=== PATIENT | male | born 1950 | race African-American/Black ===

== ENCOUNTER 2017-10-24 18:51 | Inpatient (IN) | payer OTHER ==
[2017-10-24] MEDS ORDERED: SODIUM CHLORIDE 1,000 ML IV STA (19:10)
--- NOTE | 2017-10-24 19:10 | PDOC ---
History of Present Illness - General History Source: Patient Exam Limitations: No Limitations - History of Present Illness Initial Comments: 10/24/17 19:30 Patient is a 66 yo M with PMH of ESRD on HD MWF, endocarditis, and anemia (7- 11.5) who presents to the ED with low hemoglobin sent from [facility]. Patient states that he is feeling tired and weak. He denies any vomiting or nausea. Patient is a poor historian. Recent admission for 2 week stay for gram positive bacteremia. Recently had a graft change since there was a concern that was the source of thrombosis. <Shabana Morrison - Last Filed: 10/24/17 21:59> <Rose Resendiz - Last Filed: 10/25/17 00:08> - General Chief Complaint: Revisit, Lab Variance Stated Complaint: LOW HEMOGLOBIN LEVELS Time Seen by Provider: 10/24/17 19:08 Past History <Shabana Morrison - Last Filed: 10/24/17 21:59> - Past Medical History Anemia: No Asthma: Yes ( A CHILD) Cancer: No Cardiac Disorders: No CVA: No COPD: No CHF: No DVT: No Dementia: No Diabetes: No Dialysis: Yes (m-w-f, lt arm graft) GI Disorders: No Disorders: Yes (enlarged prostate) HTN: Yes Hypercholesterolemia: No Liver Disease: No Psychiatric Problems: Yes (restlessness and agitation,schizophernia) Seizures: No Thyroid Disease: No - Surgical History Abdominal Surgery: No Appendectomy: No Cardiac Surgery: No Cholecystectomy: No Lung Surgery: No Neurologic Surgery: No Orthopedic Surgery: No - Immunization History Immunization Up to Date: No - Suicide/Smoking/Psychosocial Hx Smoking Status: No Smoking History: Never smoked Have you smoked in the past 12 months: Yes Number of Cigarettes Smoked Daily: 20 If you are a former smoker, when did you quit?: 1991 Information on smoking cessation initiated: No 'Breaking Loose' booklet given: 03/13/15 Hx Alcohol Use: No Drug/Substance Use Hx: No Substance Use Type: None Hx Substance Use Treatment: No <Rose Resendiz - Last Filed: 10/25/17 00:08> - Past Medical History Allergies/Adverse Reactions: Allergies Allergy/AdvReac Type Severity Reaction Status Date / Time No Known Drug Allergies Allergy Verified 10/24/17 18:54 Home Medications: Ambulatory Orders Cinacalcet HCl [Sensipar] 90 mg PO DAILY 03/11/15 Folic Acid/Vit Bcomp,C [Danya-Anamaria Tablet] 0.8 mg PO DAILY 03/12/15 Aspirin [Ecotrin] 81 mg PO DAILY #90 tablet. 03/25/15 Acetaminophen Suppository [Tylenol .Suppository -] 650 mg [place] Q6H PRN #0 supp.rect 09/09/17 Acetaminophen [Tylenol .Regular Strength -] 650 mg PO Q6H PRN #0 tablet Atorvastatin Ca [Lipitor] 20 mg PO HS tablet 09/09/17 Heparin - 5,000 unit SQ TID vial 09/09/17 Cefazolin (Pre-Docked) [Ancef 1Gm Ivpb (Pre-Docked)] 1 grams IVPB DAILY Haloperidol [Haldol -] 5 mg PO DAILY 10/24/17 Rifampin 300 mg PO DAILY 10/24/17 Sevelamer Carbonate 800 mg PO TID 10/24/17 Review of Systems - Review of Systems Able to Perform ROS?: Yes Comments:: 10/24/17 19:31 CONSTITUTIONAL: Present: generalized weakness Absent: fever, chills, diaphoresis, malaise, loss of appetite HEENT: Absent: rhinorrhea, nasal congestion, throat pain, throat swelling, difficulty swallowing, mouth swelling, ear pain, eye pain, visual Changes CARDIOVASCULAR: Absent: chest pain, syncope, palpitations, irregular heart rate, lightheadedness , peripheral edema RESPIRATORY: Absent: cough, shortness of breath, dyspnea with exertion, orthopnea, wheezing, stridor, hemoptysis GASTROINTESTINAL: Absent: abdominal pain, abdominal distension, nausea, vomiting, diarrhea, constipation, melena, hematochezia GENITOURINARY: Absent: dysuria, frequency, urgency, hesitancy, hematuria, flank pain, genital pain MUSCULOSKELETAL: Absent: myalgia, arthralgia, joint swelling SKIN: Absent: rash, itching, pallor HEMATOLOGIC/IMMUNOLOGIC: Absent: easy bleeding, easy bruising, lymphadenopathy, frequent infections ENDOCRINE: Absent: unexplained weight gain, unexplained weight loss, heat intolerance, cold intolerance NEUROLOGIC: Absent: headache, focal weakness or paresthesias, dizziness, unsteady gait, seizure, mental status changes, bladder or bowel incontinence PSYCHIATRIC: Absent: anxiety, depression, suicidal or homicidal ideation, hallucinations. <Shabana Morrison - Last Filed: 10/24/17 21:59> *Physical Exam - Vital Signs Last Vital Signs Temp Pulse Resp BP Pulse Ox 98.0 F 82 18 83/67 100 10/24/17 18:54 10/24/17 18:54 10/24/17 18:54 10/24/17 18:54 10/24/17 18:54 - Physical Exam Comments: 10/24/17 19:32 GENERAL: +Cachectic, 66 year old male looking much old. Awake and alert. HEENT: +Poor dentition multiple missing teeth. Normocephalic, atraumatic. PERRLA, EOMI. No conjunctival pallor. Sclera are non-icteric. Moist mucous membranes. Oropharynx is clear. NECK: Supple. Full ROM. No JVD. Carotid pulses 2+ and symmetric, without bruits. No thyromegaly. No lymphadenopathy. CARDIOVASCULAR: Regular rate and rhythm. No murmurs, rubs, or gallops. Distal pulses are 2+ and symmetric. PULMONARY: No evidence of respiratory distress. Lungs clear to auscultation bilaterally. No wheezing, rales or rhonchi. ABDOMINAL: Soft. Non-tender. Non-distended. No rebound or guarding. No organomegaly. Normoactive bowel sounds. MUSCULOSKELETAL Normal range of motion at all joints. No bony deformities or tenderness. No CVA tenderness. EXTREMITIES: No cyanosis. No clubbing. No edema. No calf tenderness. SKIN: Warm and dry. Normal capillary refill. No rashes. No jaundice. NEUROLOGICAL: Alert, awake. Cranial nerves 2-12 intact. No deficits to light touch and temperature in face, upper extremities and lower extremities. No motor deficits in the in face, upper extremities and lower extremities. Normoreflexic in the upper and lower extremities. Normal speech. PSYCHIATRIC: Cooperative. Good eye contact. Appropriate mood and affect. <Shabana Morrison - Last Filed: 10/24/17 21:59> - Vital Signs Last Vital Signs Temp Pulse Resp BP Pulse Ox 98.0 F 82 18 83/67 100 10/24/17 18:54 10/24/17 18:54 10/24/17 18:54 10/24/17 18:54 10/24/17 18:54 <Rose Resendiz - Last Filed: 10/25/17 00:08> ED Treatment Course - LABORATORY CBC & Chemistry Diagram: 10/24/17 19:55 10/24/17 19:55 <Shabana Morrison - Last Filed: 10/24/17 21:59> - LABORATORY CBC & Chemistry Diagram: 10/24/17 19:55 10/24/17 19:55 <Rose Resendiz - Last Filed: 10/25/17 00:08> Medical Decision Making - Medical Decision Making 10/24/17 21:59 A call was placed to Dr. Marie. Awaiting a call back from Dr. Malorie Wells. <Shabana Morrison - Last Filed: 10/24/17 21:59> *DC/Admit/Observation/Transfer - Attestations Scribe Attestion: 10/24/17 19:33 Documentation prepared by SAIRA Mack, acting as medical auditor for Rose Resendiz MD/DO. <Shabana Morrison - Last Filed: 10/24/17 21:59> - Discharge Dispostion Admit: Yes <Rose Resendiz - Last Filed: 10/25/17 00:08> Diagnosis at time of Disposition: ESRD (end stage renal disease) on dialysis, Symptomatic anemia
[2017-10-24 20:30] LABS: INR 1.27 (0.82-1.09); PROTHROMBIN TIME (PATIENT) 14.3 SEC (9.98-11.88)
[2017-10-24 20:36] LABS: BASO % 1.7 % (0-2.0); EOS % 10.8 % (0-4.5); MCH 28.8 pg (25.7-33.7); MCHC 32.8 g/dl (32.0-35.9); MEAN CELL VOLUME 87.6 fl (80-96); MEAN PLT VOLUME 7.1 fl (7.5-11.1); NEUT % 63.5 % (42.8-82.8); PLATELET COUNT 243 K/MM3 (134-434); RBC 2.19 M/mm3 (4.00-5.60); RDW 15.6 % (11.9-15.9); RETICULOCYTES 2.08 % (0.5-1.5)
[2017-10-24 21:05] LABS: ALBUMIN 1.5 g/dl (3.4-5.0); ALK PHOS 116 U/L (45-117); ANION GAP 6 (8-16); BILIRUBIN,TOTAL 0.5 mg/dL (0.2-1.0); BLOOD UREA NITROGEN 12 mg/dL (7-18); CALCIUM 8.6 mg/dL (8.5-10.1); CHLORIDE 99 mmol/L (98-107); CO2 32 mmol/L (21-32); CREATININE 3.7 mg/dL (0.7-1.3); GLUCOSE,RANDOM 93 mg/dL (74-106); POTASSIUM 3.5 mmol/L (3.5-5.1); SGOT/AST 15 U/L (15-37); SGPT/ALT < 6 U/L (12-78); SODIUM 137 mmol/L (136-145); TOT PROT 6.8 g/dl (6.4-8.2)
[2017-10-24 21:11] LABS: HEMATOCRIT 19.2 % (35.4-49); HEMOGLOBIN 6.3 GM/dL (11.7-16.9)
--- NOTE | 2017-10-25 00:06 | HP ---
CHIEF COMPLAINT: anemia PCP: [facility] HISTORY OF PRESENT ILLNESS: This is a 66 year old male with a past medical history of HTN, ESRD MWF, asthma , BPH who presented to the ED with low H/H as per fdc. Pt reports that he has been feeling weak ever since he was admitted to the [facility] and that they don't give her proper food, only puree baby food. He was recently admitted here 09/07-09/09 for MSSA bacterial endocarditis and transferred to tertiary care center for further treatment. ER course was notable for: (1) Hgb 6.3 Recent Travel: pt denies PAST MEDICAL HISTORY: ESRD MWF HTN asthma BPH schizophrenia PAST SURGICAL HISTORY: TURP Social History: Smoking: quit age 21 Alcohol: occ Drugs: marij-none since admission to [facility] on 10/06 Family History: pt does not know Allergies No Known Drug Allergies Allergy (Verified 10/24/17 18:54) HOME MEDICATIONS: 3 Medication Instructions Recorded Folic Acid 1 mg PO DAILY 10/24/17 Aspirin [Ecotrin] 81 mg PO DAILY #90 tablet. 03/25/15 Acetaminophen [Tylenol .Regular 650 mg PO Q6H PRN #0 tablet 09/09/17 Strength -] Cefazolin (Pre-Docked) [Ancef 1Gm 3g on tuesday with dialysis 10/24/17 Ivpb (Pre-Docked)] 2g on with dialysis Haloperidol [Haldol -] 5 mg PO DAILY 10/24/17 Rifampin 300 mg PO DAILY 10/24/17 Sevelamer Carbonate 800 mg PO TID 10/24/17 REVIEW OF SYSTEMS CONSTITUTIONAL: Present: generalized weakness, malaise Absent: fever, chills, diaphoresis, loss of appetite, weight change HEENT: Absent: rhinorrhea, nasal congestion, throat pain, throat swelling, difficulty swallowing, mouth swelling, ear pain, eye pain, visual changes CARDIOVASCULAR: Absent: chest pain, syncope, palpitations, irregular heart rate, lightheadedness , peripheral edema RESPIRATORY: Absent: cough, shortness of breath, dyspnea with exertion, orthopnea, wheezing, stridor, hemoptysis GASTROINTESTINAL: Absent: abdominal pain, abdominal distension, nausea, vomiting, diarrhea, constipation, melena, hematochezia GENITOURINARY: Absent: dysuria, frequency, urgency, hesitancy, hematuria, flank pain, genital pain MUSCULOSKELETAL: Absent: myalgia, arthralgia, joint swelling, back pain, neck pain SKIN: Absent: rash, itching, pallor HEMATOLOGIC/IMMUNOLOGIC: Absent: easy bleeding, easy bruising, lymphadenopathy, frequent infections ENDOCRINE: Absent: unexplained weight gain, unexplained weight loss, heat intolerance, cold intolerance NEUROLOGIC: Absent: headache, focal weakness or paresthesias, dizziness, unsteady gait, seizure, mental status changes, bladder or bowel incontinence PSYCHIATRIC: Absent: anxiety, depression, suicidal or homicidal ideation, hallucinations. PHYSICAL EXAMINATION Vital Signs - 24 hr 3 10/24/17 10/24/17 18:54 22:03 Temperature 98.0 F Pulse Rate 82 Respiratory 18 18 Rate Blood Pressure 83/67 O2 Sat by Pulse 100 100 Oximetry (%) GENERAL: Awake, alert, and fully oriented, in no acute distress. HEAD: Normal with no signs of trauma. EYES: Pupils equal, round and reactive to light, extraocular movements intact, sclera anicteric, conjunctiva clear. No lid lag. EARS, NOSE, THROAT: Ears normal, nares patent, oropharynx clear without exudates. Moist mucous membranes. NECK: Normal range of motion, supple without lymphadenopathy, JVD, or masses. LUNGS: Breath sounds equal, clear to auscultation bilaterally. No wheezes, and no crackles. No accessory muscle use. HEART: Regular rate and rhythm, normal S1 and S2 without murmur, rub or gallop. ABDOMEN: Soft, nontender, not distended, normoactive bowel sounds, no guarding, no rebound, no masses. No hepatomegaly or splenomegaly. MUSCULOSKELETAL: Normal range of motion at all joints. No bony deformities or tenderness. No CVA tenderness. UPPER EXTREMITIES: 2+ pulses, warm, well-perfused. No cyanosis. No clubbing. No peripheral edema. left upper arm AVG with bruit and thrill LOWER EXTREMITIES: 2+ pulses, warm, well-perfused. No calf tenderness. No peripheral edema. NEUROLOGICAL: Cranial nerves II-XII intact. Normal speech. Normal gait. PSYCHIATRIC: Cooperative. Good eye contact. Appropriate mood and affect. SKIN: Warm, dry, normal turgor, no rashes or lesions noted, normal capillary refill. Laboratory Results - last 24 hr 3 10/24/17 10/24/17 10/24/17 19:55 19:55 19:55 21:50 WBC 6.0 D RBC 2.19 L D Hgb 6.3 L* D Hct 19.2 L D MCV 87.6 D MCH 28.8 MCHC 32.8 RDW 15.6 Plt Count 243 D MPV 7.1 L D Neutrophils % 63.5 D Lymphocytes % 18.0 D Monocytes % 6.0 Eosinophils % 10.8 H D Basophils % 1.7 Retic Count 2.08 H PT with INR 14.30 H INR 1.27 H Sodium 137 Potassium 3.5 Chloride 99 Carbon Dioxide 32 Anion Gap 6 L BUN 12 D Creatinine 3.7 H D Creat Clearance w eGFR 16.52 Random Glucose 93 Calcium 8.6 Total Bilirubin 0.5 D AST 15 D ALT < 6 L D Alkaline Phosphatase 116 Creatine Kinase 49 Troponin I < 0.02 D Total Protein 6.8 Albumin 1.5 L D Stool Occult Blood Negative Blood Type O POSITIVE Antibody Screen Negative Crossmatch See Detail ECG Accelerated junctional rhythm vent rate 87 QTC 515 inverted t waves aVL, v2-v6 ASSESSMENT/PLAN: 66yM with PMH HTN, ESRD, asthma, BPH, schizophrenia, bacterial endocarditis presented to the ED from [place] with anemia. Anemia likely secondary to ESRD - ED dw Dr. Lisa, renal who recommended 2u over 8 hours - will repeat CBC in am after blood - f/u with dialysis - renal consult appreciated ECG changes - new inverted t waves and accelerated junctional rhythm - trend troponin in am, repeat ECG, if changes persist after blood, get cardio consult HTN - on no home medications, monitor BP schizophrenia - Noted with QTC prolongation on ECG but haldol necessary to maintain psychiatric well being - avoid any other QTC prolonging drugs. DVT PPX - avoid heparin due to anemia FEN - renal diet Dispo: Pt currently requires inpatient monitoring for management of his emergent condition but likely will go home in next 24 hours so will admit to observation status. Visit type - Emergency Visit Emergency Visit: Yes ED Registration Date: 10/24/17 Care time: The patient presented to the Emergency Department on the above date and was hospitalized for further evaluation of their emergent condition. - New Patient This patient is new to me today: Yes Date on this admission: 10/24/17 - Critical Care Critical Care patient: No
[2017-10-25 06:50] LABS: EOS % 10.6 % (0-4.5); HEMATOCRIT 25.6 % (35.4-49); HEMOGLOBIN 8.6 GM/dL (11.7-16.9); LYMPH % 16.1 % (8-40); MCH 29.3 pg (25.7-33.7); MCHC 33.6 g/dl (32.0-35.9); MEAN CELL VOLUME 87.2 fl (80-96); MEAN PLT VOLUME 6.8 fl (7.5-11.1); MONO % 7.3 % (3.8-10.2); PLATELET COUNT 233 K/MM3 (134-434); RBC 2.94 M/mm3 (4.00-5.60); RDW 14.8 % (11.9-15.9); WHITE BLOOD COUNT 6.9 K/mm3 (4.0-10.0)
[2017-10-25 07:11] LABS: ANION GAP 8 (8-16); BLOOD UREA NITROGEN 18 mg/dL (7-18); CALCIUM 8.5 mg/dL (8.5-10.1); CHLORIDE 102 mmol/L (98-107); CO2 28 mmol/L (21-32); CREATININE 4.4 mg/dL (0.7-1.3); GLUCOSE,RANDOM 72 mg/dL (74-106); MAGNESIUM 2.4 mg/dL (1.8-2.4); PHOSPHOROUS 4.3 mg/dL (2.5-4.9); POTASSIUM 4.1 mmol/L (3.5-5.1); SODIUM 138 mmol/L (136-145)
--- NOTE | 2017-10-25 08:36 | PN ---
Progress Note (short form) - Note Progress Note: Pt seen/ examined. chart reviewed got 2 units feels well no complains Vital Signs Temp 98.1 F 10/25/17 06:35 Pulse 79 10/25/17 06:35 Resp 19 10/25/17 06:35 BP 133/97 10/25/17 06:35 Pulse Ox 99 10/25/17 06:35 Intake & Output 10/24/17 10/24/17 10/25/17 11:59 23:59 11:59 Weight 170 lb Other: Height 5 ft 11 in Body Mass Index (BMI) 23.7 Weight Measurement Method Est/Stated by Patient CBC, BMP 10/25/17 06:25 10/25/17 06:25 Physical exam alert/awake lungs- clear cvs- s1, s2 rrr abd - soft ext- no edema neuro- aox 3 a/p anemia- likely of chronic disease transfuse stool for occult blood-ve gi work up as outpt dialysis per renal. abx - last dose Cefazolin tomorrow ekg - junctional rhythm. will get cardiology consult. will follow. Problem List - Problems (1) Abnormal ECG Code(s): R94.31 - ABNORMAL ELECTROCARDIOGRAM [ECG] [EKG] (2) ESRD (end stage renal disease) on dialysis Code(s): N18.6 - END STAGE RENAL DISEASE; Z99.2 - DEPENDENCE ON RENAL DIALYSIS (3) Symptomatic anemia Code(s): D64.9 - ANEMIA, UNSPECIFIED
--- NOTE | 2017-10-25 09:41 | CON.NEP ---
Consult Consult Specialty:: Nephrology Referred by:: Dr. Pearce Reason for Consultation:: ESRD on HD, Anemia - History of Present Illness Chief Complaint: Low Hgb levels at dialysis History of Present Illness: This is a 66 year old gentleman with PMhx of ESRD on HD (MWF at [facility]), Hypertension, Recent MSSA Bacteremia with suspected endocarditis who was sent into the ED from dialysis for low Hgb. Hgb has been in the 7's since hospital discharge but now it fell to 6.8 and pt was mildly hypotensive on dialysis. Pt s /p admission at [facility] for suspected endocarditis. Pt has persisetnly positive blood cultures but BALTA showed no Veg on heart valves and Doppler of Hero Graft shoed no collections. Pt is currently on Cefazolin IV with HD until 10/26. Pt without any acute complaints. No fevers, chills. Hero Graft being used for dialysis. Denies any dark stools. 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 Cardio/Vascular: Yes: HTN Renal/: Yes: Renal Failure, BPH, Hemodialysis Endocrine: Yes: Hyperparathyroidism - Past Surgical History Past Surgical History: Yes: AV Fistula/Graft, TURP - Alcohol/Substance Use Hx Alcohol Use: No History of Substance Use: reports: Marijuana - Smoking History Smoking history: Never smoked Have you smoked in the past 12 months: Yes Aproximately how many cigarettes per day: 20 If you are a former smoker, when did you quit?: 1991 - Social History History of Recent Travel: No Home Medications - Allergies Allergies/Adverse Reactions: Allergies Allergy/AdvReac Type Severity Reaction Status Date / Time No Known Drug Allergies Allergy Verified 10/24/17 18:54 - Home Medications Home Medications: Ambulatory Orders Cinacalcet HCl [Sensipar] 90 mg PO DAILY 03/11/15 Folic Acid/Vit Bcomp,C [Danya-Anamaria Tablet] 0.8 mg PO DAILY 03/12/15 Aspirin [Ecotrin] 81 mg PO DAILY #90 tablet. 03/25/15 Acetaminophen Suppository [Tylenol .Suppository -] 650 mg [place] Q6H PRN #0 supp.rect 09/09/17 Acetaminophen [Tylenol .Regular Strength -] 650 mg PO Q6H PRN #0 tablet Atorvastatin Ca [Lipitor] 20 mg PO HS tablet 09/09/17 Heparin - 5,000 unit SQ TID vial 09/09/17 Cefazolin (Pre-Docked) [Ancef 1Gm Ivpb (Pre-Docked)] 1 grams IVPB DAILY Haloperidol [Haldol -] 5 mg PO DAILY 10/24/17 Rifampin 300 mg PO DAILY 10/24/17 Sevelamer Carbonate 800 mg PO TID 10/24/17 Family Disease History - Family Disease History Family History: Unremarkable Review of Systems - Review of Systems Constitutional: reports: No Symptoms Eyes: reports: No Symptoms HENT: reports: No Symptoms Neck: reports: No Symptoms Cardiovascular: reports: No Symptoms Respiratory: reports: No Symptoms Gastrointestinal: reports: No Symptoms Musculoskeletal: reports: No Symptoms Nephrology Consult - Height Height: 5 ft 11 in - Weight Weight: 77.111 kg - BMI Body Mass Index (BMI): 23.7 - Lab Results CBC,BMP: CBC, BMP 10/25/17 06:25 10/25/17 06:25 Anion Gap: Anion Gap Anion Gap 8 (8-16) 10/25/17 06:25 - Imaging Chest X-ray: Report Reviewed - Physical Examination Vital Signs: Vital Signs Temperature 98.1 F 10/25/17 06:35 Pulse Rate 79 10/25/17 06:35 Respiratory Rate 19 10/25/17 06:35 Blood Pressure 133/97 10/25/17 06:35 O2 Sat by Pulse Oximetry (%) 99 10/25/17 06:35 Constitutional: Yes: No Distress Eyes: Yes: Conjunctiva Clear HENT: Yes: Atraumatic Neck: Yes: Supple Cardiovascular: Yes: Regular Rate and Rhythm Respiratory: Yes: Regular, Diminished. No: Rales, Rhonchi Gastrointestinal: Yes: Soft. No: Tenderness Access for Hemodialysis: AV Graft Extremities: No: Cold, Cool, Cyanosis Edema: No Neurological: Yes: Alert, Oriented Assessment/Plan 66 year old gentleman with PMhx of ESRD on HD (MWF at [facility]), Hypertension , Recent MSSA Bacteremia with suspected endocarditis who was sent into the ED from dialysis for low Hgb. Hgb has been in the 7's since hospital discharge but now it fell to 6.8 and pt was mildly hypotensive on dialysis. 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 need for repeat blood cultures Pt states that he does not want to go back to [place] and would want to go home will need PT eval Thank you Will follow Aquiles Marie
--- NOTE | 2017-10-25 09:53 | CON.CARD ---
Consult Consult Specialty:: Cardiology Referred by:: Dr. Pearce Reason for Consultation:: Abnl ECG - History of Present Illness Chief Complaint: Diarrhea History of Present Illness: This is a 66 year old gentleman with PMhx of ESRD on HD (MWF at [facility]), Hypertension, Recent MSSA Bacteremia with suspected endocarditis who was sent into the ED from dialysis for low Hgb. Hgb has been in the 7's since hospital discharge but now it fell to 6.8 and pt was mildly hypotensive on dialysis. Pt s /p admission at [facility] for suspected endocarditis. Pt has persisetnly positive blood cultures but BALTA showed no Veg on heart valves and Doppler of Hero Graft shoed no collections. Pt is currently on Cefazolin IV with HD until 10/26. Pt without any acute complaints. No fevers, chills. Hero Graft being used for dialysis. Denies any dark stools. He denies chest pain, SOB, palps. Denies prior Cardiac history, but does state he used to take Coumadin; doesn't know why. Having significant diarrhea, " all day long" - History Source History Provided By: Patient, Medical Record - Past Medical History RN ORTHOPAEDIC: Yes: Seizure Cardio/Vascular: Yes: HTN Renal/: Yes: Renal Failure, BPH, Hemodialysis Infectious Disease: Yes: Other (recent bacteremia) Endocrine: Yes: Hyperparathyroidism - Past Surgical History Past Surgical History: Yes: AV Fistula/Graft, TURP - Alcohol/Substance Use Hx Alcohol Use: No History of Substance Use: reports: Marijuana - Smoking History Smoking history: Never smoked Have you smoked in the past 12 months: Yes Aproximately how many cigarettes per day: 20 If you are a former smoker, when did you quit?: 1991 - Social History History of Recent Travel: No Home Medications - Allergies Allergies/Adverse Reactions: Allergies Allergy/AdvReac Type Severity Reaction Status Date / Time No Known Drug Allergies Allergy Verified 10/24/17 18:54 - Home Medications Home Medications: Ambulatory Orders Cinacalcet HCl [Sensipar] 90 mg PO DAILY 03/11/15 Folic Acid/Vit Bcomp,C [Danya-Anamaria Tablet] 0.8 mg PO DAILY 03/12/15 Aspirin [Ecotrin] 81 mg PO DAILY #90 tablet. 03/25/15 Acetaminophen Suppository [Tylenol .Suppository -] 650 mg ND Q6H PRN #0 supp.rect 09/09/17 Acetaminophen [Tylenol .Regular Strength -] 650 mg PO Q6H PRN #0 tablet Atorvastatin Ca [Lipitor] 20 mg PO HS tablet 09/09/17 Heparin - 5,000 unit SQ TID vial 09/09/17 Cefazolin (Pre-Docked) [Ancef 1Gm Ivpb (Pre-Docked)] 1 grams IVPB DAILY Haloperidol [Haldol -] 5 mg PO DAILY 10/24/17 Rifampin 300 mg PO DAILY 10/24/17 Sevelamer Carbonate 800 mg PO TID 10/24/17 Family Disease History - Family Disease History Family History: Unremarkable (non contributory) Review of Systems Findings/Remarks: See HPI - Review of Systems Constitutional: denies: No Symptoms, Chills, Diaphoresis, Fever, Lethargy, Loss of Appetite, Malaise, Night Sweats, Unintentional Wgt. Loss, Weakness, Other Eyes: denies: No Symptoms, Blind Spots, Blurred Vision, Double Vision, Eye Pain , Floaters, Photophobia, Recent Change in Vision, Other HENT: denies: No Symptoms, Difficult Swallowing, Ear Discharge, Ear Pain, Epistaxis, Gingival Bleeding, Hearing Loss, Mouth Swelling, Nasal Congestion, Ocular Prosthesis, Throat Pain, Toothache, Ringing in Ears, Other Neck: denies: No Symptoms, Decreased ROM, Lumps, Pain on Movement, Stiffness, Swollen Glands, Tenderness, Other Cardiovascular: denies: No Symptoms, Chest Pain, Edema, Palpitations, Shortness of Breath, Other Gastrointestinal: reports: Diarrhea Genitourinary: denies: No Symptoms, Burning, Discharge, Dysuria, Flank Pain, Frequency, Hematuria, Incontinence, Lesions, Menses, Pain, Testicular Mass, Testicular Pain, Testicular Swelling, Urgency, Vaginal Bleeding, Other Breasts: denies: No Symptoms Reported, See HPI, Breast Implants, Discharge from Nipple, Lumps, Pain, Skin Changes, Other Integumentary: denies: No Symptoms, Blister, Bruising, Change in Color, Eczema, Erythema, Incision, Lesions, Lump, Pallor, Pruritis, Rash, Wound, Other Neurological: denies: No Symptoms, Change in LOC, Change in Speech, Confusion, Dizziness, Headache, Incoordination, Numbness, Parasthesia, Pre-Existing Deficit , Seizure, Syncope, Tremors, Unsteady Gait, Weakness, Other Endocrine: denies: No Symptoms, Excessive Sweating, Flushing, Increased Hunger, Increased Thirst, Intolerance to Cold, Intolerance to Heat, Unexplained Weight Gain, Unexplained Weight Loss, Other Psychiatric: denies: No Symptoms, Altered Sleep Pattern, Anxiety, Depression, Hallucinations, Panic, Paranoia, Suicidal, Other - Risk Factors Known Risk Factors: Yes: Hypertension, Other (ESRD) Vital Signs: Vital Signs Temperature 98.1 F 10/25/17 06:35 Pulse Rate 79 10/25/17 06:35 Respiratory Rate 19 10/25/17 06:35 Blood Pressure 133/97 10/25/17 06:35 O2 Sat by Pulse Oximetry (%) 99 10/25/17 06:35 Constitutional: Yes: No Distress, Calm Eyes: Yes: Conjunctiva Clear, EOM Intact Respiratory: Yes: CTA Bilaterally Gastrointestinal: Yes: Soft (no rebound or guarding) Cardiovascular: Yes: Regular Rate and Rhythm JVD: No Carotid Bruit: No PMI: Non-Displaced Heart Sounds: Yes: S1, S2 (RRR, no murmurs) Edema: No Neurological: Yes: Alert, Oriented - Other Data Labs, Other Data: CBC, BMP 10/25/17 06:25 10/25/17 06:25 INR, PTT INR 1.27 (0.82-1.09) H 10/24/17 19:55 Troponin, BNP 10/24/17 10/25/17 10/25/17 19:55 02:30 06:25 Troponin I < 0.02 D < 0.02 < 0.02 Troponin, BNP 10/24/17 10/25/17 10/25/17 19:55 02:30 06:25 Troponin I < 0.02 D < 0.02 < 0.02 Laboratory Tests 10/24/17 10/24/17 10/24/17 19:55 19:55 21:50 WBC 6.0 D Hgb 6.3 L* D Plt Count 243 D Potassium BUN Creatinine Creatine Kinase Troponin I < 0.02 D Stool Occult Blood Negative 10/25/17 10/25/17 10/25/17 02:30 06:25 06:25 WBC 6.9 Hgb 8.6 L D Plt Count 233 Potassium 4.1 BUN 18 D Creatinine 4.4 H Creatine Kinase 53 Troponin I < 0.02 < 0.02 Stool Occult Blood Jxal rhythm with NSST changes Echo: Report Reviewed (Normal LV function. ?Mass RA on TTE 09/2017 Subsequent BALTA done at [facility]) Stress Echo: Report Reviewed Imaging - Results EKG: Image Reviewed Problem List - Problems (1) Abnormal ECG Assessment/Plan: -junctional rhythm -Normal LV function -Check Holter Code(s): R94.31 - ABNORMAL ELECTROCARDIOGRAM [ECG] [EKG] (2) ESRD (end stage renal disease) on dialysis Assessment/Plan: -HD as per renal Code(s): N18.6 - END STAGE RENAL DISEASE; Z99.2 - DEPENDENCE ON RENAL DIALYSIS (3) Symptomatic anemia Assessment/Plan: -guaiac negative -Transfusional support -Work up as per PMD Code(s): D64.9 - ANEMIA, UNSPECIFIED (4) Gram-positive bacteremia Assessment/Plan: -Recent BALTA negative -Surveillance cx and IV abx at HD as per ID Code(s): R78.81 - BACTEREMIA
[2017-10-25 10:55] VITALS: BMI 18.3
--- NOTE | 2017-10-25 21:13 | EKG ---
Test Reason : Blood Pressure : / mmHG Vent. Rate : 077 BPM Atrial Rate : 077 BPM P-R Int : 000 ms QRS Dur : 084 ms QT Int : 402 ms P-R-T Axes : 076 072 265 degrees QTc Int : 454 ms SINUS RHYTHM WITH 1ST DEGREE A-V BLOCK NONSPECIFIC T WAVE ABNORMALITY ABNORMAL ECG WHEN COMPARED WITH ECG OF 24-OCT-2017 19:02, SINUS RHYTHM HAS REPLACED JUNCTIONAL RHYTHM T WAVE INVERSION NO LONGER EVIDENT IN LATERAL LEADS QT HAS SHORTENED Confirmed by MD GEE, MAGDY ([id number]) on 10/25/2017 9:13:22 PM Referred By: Yris HERNANDEZ Confirmed By:MAGDY FLYNN MD
[2017-10-26] MEDS ORDERED: CEFAZOLIN 2 GM in DEXTROSE 5%-WATER - 50 ML IVPB ONE (06:00)
--- NOTE | 2017-10-26 09:10 | PN ---
Progress Note (short form) - Note Progress Note: patient awake/comfortable No complaints offered Denies chest pain or shortness of breath Denies abdominal pain No headache or dizziness Afebrile Vital Signs Temp 98.4 F 10/26/17 06:00 Pulse 80 10/26/17 06:00 Resp 18 10/26/17 06:00 BP 126/66 10/26/17 06:00 Pulse Ox 99 10/25/17 20:00 Intake & Output 10/25/17 10/25/17 10/26/17 11:59 23:59 11:59 Intake Total 820 Output Total 200 Balance 820 -200 Weight 131 lb 1.6 oz Intake: Oral 820 Output: Urine 200 Void 200 Other: Voiding Method Urinal Urinal Bowel Movement Yes: small # Bowel Movements 1 Height 5 ft 11 in Body Mass Index (BMI) 18.3 Weight Measurement Method Stated by Caregiver Active Medications Cefazolin Sodium 2 gm/ (Dextrose) 50 mls @ 100 mls/hr IVPB ONCE ONE Stop: 10/26/17 06:29 CBC, BMP 10/25/17 06:25 10/25/17 06:25 Physical exam alert/awake--comfortable lungs- clear cvs- s1, s2 rrr abd - soft ext- no edema neuro- aox 3 a/p anemia- likely of chronic disease transfuse when necessary--Patient got transfusion yesterday. stool for occult blood-ve gi work up as outpt dialysis per renal.---today abx - last dose Cefazolin tomorrow ekg - junctional rhythm. cardiology consult noted and appreciated Holter in place Monitor Will follow. Problem List - Problems (1) Abnormal ECG Code(s): R94.31 - ABNORMAL ELECTROCARDIOGRAM [ECG] [EKG] (2) ESRD (end stage renal disease) on dialysis Code(s): N18.6 - END STAGE RENAL DISEASE; Z99.2 - DEPENDENCE ON RENAL DIALYSIS (3) Symptomatic anemia Code(s): D64.9 - ANEMIA, UNSPECIFIED
[2017-10-26] MEDS ORDERED: ACETAMINOPHEN 325 MG TABLET (FP) PO PRN (09:15)
--- NOTE | 2017-10-26 09:31 | PN ---
Progress Note, Physician Chief Complaint: holter in progress No CP or SOB - Current Medication List Current Medications: Active Medications Acetaminophen (Tylenol -) 650 mg PO Q6H PRN PRN Reason: FEVER OR PAIN Aspirin (Ecotrin -) 81 mg PO DAILY [facility] Atorvastatin Calcium (Lipitor -) 20 mg PO HS [facility] Bacitracin (Bacitracin -) 1 applic TP BID [facility] Folic Acid (Folic Acid -) 1 mg PO DAILY [facility] Haloperidol (Haldol -) 5 mg PO DAILY [facility] Cefazolin Sodium 2 gm/ (Dextrose) 50 mls @ 100 mls/hr IVPB ONCE ONE Stop: 10/26/17 06:29 Rifampin (Rifadin -) 300 mg PO DAILY [facility] Sevelamer Carbonate (Renvela -) 800 mg PO TID [facility] - Objective Vital Signs: Vital Signs Temperature 98.4 F 10/26/17 06:00 Pulse Rate 80 10/26/17 06:00 Respiratory Rate 18 10/26/17 06:00 Blood Pressure 126/66 10/26/17 06:00 O2 Sat by Pulse Oximetry (%) 99 10/25/17 20:00 Constitutional: Yes: No Distress Cardiovascular: Yes: Regular Rate and Rhythm Respiratory: Yes: CTA Bilaterally Gastrointestinal: Yes: Soft Edema: No Neurological: Yes: Alert, Oriented Labs: CBC, BMP 10/25/17 06:25 10/25/17 06:25 INR, PTT INR 1.27 (0.82-1.09) H 10/24/17 19:55 Microbiology Laboratory Tests 10/24/17 10/25/17 10/25/17 19:55 02:30 06:25 WBC 6.9 Hgb 8.6 L D Plt Count 233 Sodium Potassium Creatinine Troponin I < 0.02 D < 0.02 10/25/17 06:25 WBC Hgb Plt Count Sodium 138 Potassium 4.1 Creatinine 4.4 H Troponin I < 0.02 Problem List - Problems (1) Abnormal ECG Code(s): R94.31 - ABNORMAL ELECTROCARDIOGRAM [ECG] [EKG] (2) ESRD (end stage renal disease) on dialysis Code(s): N18.6 - END STAGE RENAL DISEASE; Z99.2 - DEPENDENCE ON RENAL DIALYSIS (3) Symptomatic anemia Code(s): D64.9 - ANEMIA, UNSPECIFIED (4) Gram-positive bacteremia Code(s): R78.81 - BACTEREMIA Assessment/Plan Problem List - Problems (1) Abnormal ECG Assessment/Plan: -junctional rhythm -Normal LV function -Holter in progress Code(s): R94.31 - ABNORMAL ELECTROCARDIOGRAM [ECG] [EKG] (2) ESRD (end stage renal disease) on dialysis Assessment/Plan: -HD as per renal Code(s): N18.6 - END STAGE RENAL DISEASE; Z99.2 - DEPENDENCE ON RENAL DIALYSIS (3) Symptomatic anemia Assessment/Plan: -guaiac negative -Transfusional support -Work up as per PMD Code(s): D64.9 - ANEMIA, UNSPECIFIED (4) Gram-positive bacteremia Assessment/Plan: -Recent BALTA negative -Surveillance cx and IV abx at HD as per ID Code(s): R78.81 - BACTEREMIA
[2017-10-26] MEDS ORDERED: CEFAZOLIN 2 GM in DEXTROSE 5%-WATER - 100 ML IVPB ONE (11:21)
[2017-10-26] MEDS: BACITRACIN 15 GM TUBE TOPICAL OINTMENT TP SCH ×2 (11:22→21:32)
[2017-10-26] MEDS: RIFAMPIN 300 MG CAPSULE PO SCH (11:22)
[2017-10-26] MEDS: ASPIRIN COATED 81 MG TABLET.EC PO SCH (11:22)
[2017-10-26] MEDS: FOLIC ACID 1 MG TABLET (FP) PO SCH (11:22)
[2017-10-26] MEDS: HALOPERIDOL 5 MG TABLET (FP) PO SCH (11:22)
--- NOTE | 2017-10-26 11:40 | EKG ---
Test Reason : Blood Pressure : / mmHG Vent. Rate : 087 BPM Atrial Rate : 087 BPM P-R Int : 000 ms QRS Dur : 086 ms QT Int : 428 ms P-R-T Axes : 000 080 220 degrees QTc Int : 515 ms sinus rhythm with first degree AVB T WAVE ABNORMALITY, CONSIDER ANTEROLATERAL ISCHEMIA PROLONGED QT ABNORMAL ECG Confirmed by RADHA BROOKE MD ([id number]) on 10/26/2017 11:39:40 AM Referred By: Confirmed By:RADHA BROOKE MD
[2017-10-26 12:05] LABS: HEMATOCRIT 27.8 % (35.4-49); HEMOGLOBIN 9.1 GM/dL (11.7-16.9); MCH 28.8 pg (25.7-33.7); MCHC 32.9 g/dl (32.0-35.9); MEAN CELL VOLUME 87.5 fl (80-96); MEAN PLT VOLUME 6.9 fl (7.5-11.1); PLATELET COUNT 217 K/MM3 (134-434); RBC 3.18 M/mm3 (4.00-5.60); RDW 14.8 % (11.9-15.9); WHITE BLOOD COUNT 8.6 K/mm3 (4.0-10.0)
[2017-10-26 12:46] LABS: ANION GAP 7 (8-16); BLOOD UREA NITROGEN 30 mg/dL (7-18); CALCIUM 8.9 mg/dL (8.5-10.1); CHLORIDE 101 mmol/L (98-107); CO2 29 mmol/L (21-32); GLUCOSE,RANDOM 123 mg/dL (74-106); PHOSPHOROUS 5.2 mg/dL (2.5-4.9); POTASSIUM 3.8 mmol/L (3.5-5.1); SODIUM 137 mmol/L (136-145)
--- NOTE | 2017-10-26 14:47 | PN ---
Progress Note (short form) - Note Progress Note: Renal Follow up for ESRD on HD Pt seen and examined during dialysis awake and alert BP stable UF goal is 2.5L AVG with good flow Vital Signs Temperature 98.1 F 10/26/17 10:00 Pulse Rate 84 10/26/17 10:00 Respiratory Rate 18 10/26/17 10:00 Blood Pressure 129/80 10/26/17 10:00 O2 Sat by Pulse Oximetry (%) 99 10/25/17 20:00 Intake & Output 10/23/17 10/24/17 10/25/17 10/26/17 23:59 23:59 23:59 23:59 Intake Total 820 350 Output Total 200 Balance 820 150 Weight 77.111 kg 59.466 kg NAD awake and alert No LE edema CBC, BMP 10/26/17 11:50 10/26/17 11:50 Current Medications Acetaminophen (Tylenol -) 650 mg PO Q6H PRN PRN Reason: FEVER OR PAIN Aspirin (Ecotrin -) 81 mg PO DAILY [facility] Last Admin: 10/26/17 11:22 Dose: 81 mg Atorvastatin Calcium (Lipitor -) 20 mg PO [facility] Bacitracin (Bacitracin -) 1 applic TP BID [facility] Last Admin: 10/26/17 11:22 Dose: 1 applic Folic Acid (Folic Acid -) 1 mg PO DAILY [facility] Last Admin: 10/26/17 11:22 Dose: 1 mg Haloperidol (Haldol -) 5 mg PO DAILY [facility] Last Admin: 10/26/17 11:22 Dose: 5 mg Rifampin (Rifadin -) 300 mg PO DAILY [facility] Last Admin: 10/26/17 11:22 Dose: 300 mg Sevelamer Carbonate (Renvela -) 800 mg PO TID [facility] 66 year old gentleman with PMhx of ESRD on HD (MWF at [facility]), Hypertension , Recent MSSA Bacteremia with suspected endocarditis who was sent into the ED from dialysis for low Hgb. Hgb has been in the 7's since hospital discharge but now it fell to 6.8 and pt was mildly hypotensive on dialysis. #ESRD on HD tolerating dialysis well today #Acute on Chronic Anemia in setting of CKD/Infection s/p 2 unit prbc transfusion yesterday with good response continue high dose DEMETRIS with HD #Atelectasis/PNA on CXR no leukocytosis, cough, fever, chills to indicate PNA #MSSA Bacteremia getting Cefazolin today with HD will check 1 set of blood cultures Aquiles Marie
[2017-10-26] MEDS ORDERED: PT OWN MED DRAWER 7, Y5N ONE (15:25)
[2017-10-26] MEDS ORDERED: CEFAZOLIN 2 GM/D5W 2 GM/50 ML ML IVPB ONE (15:30)
[2017-10-26] MEDS: SEVELAMER CARBONATE 800 MG TAB (FP) PO SCH ×2 (17:22→21:32)
[2017-10-26 20:10] LABS: CREATININE 2.2 mg/dL (0.7-1.3)
[2017-10-26] MEDS: ATORVASTATIN CA 20 MG TABLET (FP) PO SCH (21:32)
[2017-10-27] MEDS: SEVELAMER CARBONATE 800 MG TAB (FP) PO SCH ×3 (06:31→22:02)
--- NOTE | 2017-10-27 09:03 | PN ---
Progress Note, Physician Chief Complaint: no distress Denies chest pain or SOB History of Present Illness: still having diarrhea - Current Medication List Current Medications: Active Medications Acetaminophen (Tylenol -) 650 mg PO Q6H PRN PRN Reason: FEVER OR PAIN Aspirin (Ecotrin -) 81 mg PO DAILY [facility] Last Admin: 10/26/17 11:22 Dose: 81 mg Atorvastatin Calcium (Lipitor -) 20 mg PO HS [facility] Last Admin: 10/26/17 21:32 Dose: 20 mg Bacitracin (Bacitracin -) 1 applic TP BID [facility] Last Admin: 10/26/17 21:32 Dose: Not Given Folic Acid (Folic Acid -) 1 mg PO DAILY [facility] Last Admin: 10/26/17 11:22 Dose: 1 mg Haloperidol (Haldol -) 5 mg PO DAILY [facility] Last Admin: 10/26/17 11:22 Dose: 5 mg Rifampin (Rifadin -) 300 mg PO DAILY [facility] Last Admin: 10/26/17 11:22 Dose: 300 mg Sevelamer Carbonate (Renvela -) 800 mg PO TID [facility] Last Admin: 10/27/17 06:31 Dose: 800 mg - Objective Vital Signs: Vital Signs Temperature 98.4 F 10/27/17 06:00 Pulse Rate 98 H 10/27/17 06:00 Respiratory Rate 18 10/27/17 06:00 Blood Pressure 134/89 10/27/17 06:00 O2 Sat by Pulse Oximetry (%) 97 10/26/17 21:00 Constitutional: Yes: Calm HENT: Yes: Atraumatic Cardiovascular: Yes: Regular Rate and Rhythm Respiratory: Yes: CTA Bilaterally Gastrointestinal: Yes: Soft Edema: No Labs: CBC, BMP 10/26/17 11:50 10/26/17 17:00 INR, PTT INR 1.27 (0.82-1.09) H 10/24/17 19:55 Laboratory Tests 10/24/17 10/25/17 10/25/17 19:55 02:30 06:25 WBC Hgb Plt Count Sodium Potassium Creatinine Troponin I < 0.02 D < 0.02 < 0.02 10/26/17 10/26/17 11:50 11:50 WBC 8.6 Hgb 9.1 L Plt Count 217 Sodium 137 Potassium 3.8 Creatinine 6.0 H D Troponin I Microbiology 10/25/17 21:00 Blood - Peripheral Venous Blood Culture - Preliminary NO GROWTH OBTAINED AFTER 24 HOURS, INCUBATION TO CONTINUE FOR 4 DAYS. 10/25/17 19:30 Blood - Peripheral Venous Blood Culture - Preliminary NO GROWTH OBTAINED AFTER 24 HOURS, INCUBATION TO CONTINUE FOR 4 DAYS. Problem List - Problems (1) Abnormal ECG Code(s): R94.31 - ABNORMAL ELECTROCARDIOGRAM [ECG] [EKG] (2) ESRD (end stage renal disease) on dialysis Code(s): N18.6 - END STAGE RENAL DISEASE; Z99.2 - DEPENDENCE ON RENAL DIALYSIS (3) Symptomatic anemia Code(s): D64.9 - ANEMIA, UNSPECIFIED (4) Gram-positive bacteremia Code(s): R78.81 - BACTEREMIA Assessment/Plan Problem List - Problems (1) Abnormal ECG Assessment/Plan: -junctional rhythm -Normal LV function -Holter in progress Code(s): R94.31 - ABNORMAL ELECTROCARDIOGRAM [ECG] [EKG] (2) ESRD (end stage renal disease) on dialysis Assessment/Plan: -HD as per renal Code(s): N18.6 - END STAGE RENAL DISEASE; Z99.2 - DEPENDENCE ON RENAL DIALYSIS (3) Symptomatic anemia Assessment/Plan: -guaiac negative -Transfusional support -Work up as per PMD Code(s): D64.9 - ANEMIA, UNSPECIFIED (4) Gram-positive bacteremia, ongoing diarrhea Assessment/Plan: -Recent BALTA negative -Surveillance cx and IV abx at HD as per ID -Check C. Diff Code(s): R78.81 - BACTEREMIA
[2017-10-27] MEDS: FOLIC ACID 1 MG TABLET (FP) PO SCH (10:22)
[2017-10-27] MEDS: ASPIRIN COATED 81 MG TABLET.EC PO SCH (10:22)
[2017-10-27] MEDS: HALOPERIDOL 5 MG TABLET (FP) PO SCH (10:23)
[2017-10-27] MEDS: RIFAMPIN 300 MG CAPSULE PO SCH (10:23)
[2017-10-27] MEDS: BACITRACIN 15 GM TUBE TOPICAL OINTMENT TP SCH (10:23)
--- NOTE | 2017-10-27 12:48 | PN ---
Progress Note (short form) - Note Progress Note: Renal Follow up for ESRD on HD Pt seen and examined at the bedside awake and alert denies any sob, chest pain, abd pain + diarrhea Vital Signs Temperature 98.1 F 10/27/17 10:00 Pulse Rate 90 10/27/17 10:00 Respiratory Rate 20 10/27/17 10:00 Blood Pressure 130/83 10/27/17 10:00 O2 Sat by Pulse Oximetry (%) 97 10/26/17 21:00 Intake & Output 10/24/17 10/25/17 10/26/17 10/27/17 23:59 23:59 23:59 23:59 Intake Total 820 900 380 Output Total 200 200 Balance 820 700 180 Weight 77.111 kg 60.339 kg NAD awake and alert No LE edema CBC, BMP 10/26/17 11:50 10/26/17 17:00 Current Medications Acetaminophen (Tylenol -) 650 mg PO Q6H PRN PRN Reason: FEVER OR PAIN Aspirin (Ecotrin -) 81 mg PO DAILY [facility] Last Admin: 10/27/17 10:22 Dose: 81 mg Atorvastatin Calcium (Lipitor -) 20 mg PO HS [facility] Last Admin: 10/26/17 21:32 Dose: 20 mg Bacitracin (Bacitracin -) 1 applic TP BID [facility] Last Admin: 10/27/17 10:23 Dose: 1 applic Folic Acid (Folic Acid -) 1 mg PO DAILY [facility] Last Admin: 10/27/17 10:22 Dose: 1 mg Haloperidol (Haldol -) 5 mg PO DAILY [facility] Last Admin: 10/27/17 10:23 Dose: 5 mg Rifampin (Rifadin -) 300 mg PO DAILY [facility] Last Admin: 10/27/17 10:23 Dose: 300 mg Sevelamer Carbonate (Renvela -) 800 mg PO TID [facility] Last Admin: 10/27/17 06:31 Dose: 800 mg 66 year old gentleman with PMhx of ESRD on HD (MWF at [facility]), Hypertension , Recent MSSA Bacteremia with suspected endocarditis who was sent into the ED from dialysis for low Hgb. Hgb has been in the 7's since hospital discharge but now it fell to 6.8 and pt was mildly hypotensive on dialysis. #ESRD on HD no acute indication for [employer] today #Acute on Chronic Anemia in setting of CKD/Infection Hgb improved and stable DEMETRIS with HD #Atelectasis/PNA on CXR no leukocytosis, cough, fever, chills to indicate PNA #MSSA Bacteremia blood cultures drawn, no growth so far #Diarrhea check C-diff antigen and toxin, high suspision for C-dif given long course of Abx as outpatient Aquiles Marie
--- NOTE | 2017-10-27 12:50 | HOL ---
Hook-up date: 2017-10-25 13:48:00 Duration: 09:15:00 Test Indications: Medications: 76719 QRS complexes 301 Ventricular ectopics which represent <1 % of total QRS comp. 1 Supraventricular ectopics which represent <1 % of total QRS comp. * Paced QRS complexs which represent % of total QRS comp. * % of Time Classified as Noise VENTRICULAR ECTOPY 285 Isolated 0 Bigeminal Cycles 8 Couplets 0 Runs 0 Beats in Runs * Beats LONGEST at * BPM at :: -- * Beats FASTEST at * BPM at :: -- SUPRAVENTRICULAR ECTOPY 1 Isolated 0 Couplets 0 Runs 0 Beats in Runs * Beats LONGEST at * BPM at :: -- * Beats FASTEST at * BPM at :: -- HEART RATES 80 MIN at 16:53:22 2017-10-25 94 AVG 114 MAX at 21:58:54 2017-10-25 LONGEST RR 1.224 secs at 16:53:18 2017-10-25 SCANNED BY EMI CHENG ON 10/27/17 HOLTER RAN 9:15 HOURS ONLY 1. Baseline sinus rhythm with first degree av block. Avg hr 94, range 80-114. 2. No significant pauses or bradycardia. 3. Rare PVCs and PACs. 4. No vt, vf, afib, aflutter, or svt. 5. No diary submitted. Confirmed by ISAIAH MINOR, EDDIE ([id number]) on 10/27/2017 12:49:59 PM Referred By: SANDRO ROACH DR Overread By: EDDIE COLON MD
--- NOTE | 2017-10-27 17:10 | PN ---
Progress Note (short form) - Note Progress Note: patient seen and examined. Comfortable No complaints Denies diarrhea Discussed with nursing staff--they also reported there is no diarrhea. Vital Signs Temp 98.0 F 10/27/17 14:49 Pulse 100 H 10/27/17 14:49 Resp 18 10/27/17 14:49 BP 120/85 10/27/17 14:49 Pulse Ox 97 10/26/17 21:00 Intake & Output 10/26/17 10/27/17 10/27/17 23:59 11:59 23:59 Intake Total 900 380 420 Output Total 200 200 Balance 900 180 220 Intake: Oral 900 380 420 Output: Urine 200 200 Void 200 200 Other: Voiding Method Urinal Diaper Diaper # Unmeasured Voids Void 0 0 Bowel Movement No Yes No # Bowel Movements 1 Active Medications Acetaminophen (Tylenol -) 650 mg PO Q6H PRN PRN Reason: FEVER OR PAIN Aspirin (Ecotrin -) 81 mg PO DAILY [facility] Last Admin: 10/27/17 10:22 Dose: 81 mg Atorvastatin Calcium (Lipitor -) 20 mg PO HS [facility] Last Admin: 10/26/17 21:32 Dose: 20 mg Bacitracin (Bacitracin -) 1 applic TP BID [facility] Last Admin: 10/27/17 10:23 Dose: 1 applic Folic Acid (Folic Acid -) 1 mg PO DAILY [facility] Last Admin: 10/27/17 10:22 Dose: 1 mg Haloperidol (Haldol -) 5 mg PO DAILY [facility] Last Admin: 10/27/17 10:23 Dose: 5 mg Rifampin (Rifadin -) 300 mg PO DAILY [facility] Last Admin: 10/27/17 10:23 Dose: 300 mg Sevelamer Carbonate (Renvela -) 800 mg PO TID [facility] Last Admin: 10/27/17 13:56 Dose: 800 mg CBC, BMP 10/26/17 11:50 10/26/17 17:00 c diff - pending . Physical exam alert/awake--comfortable lungs- clear cvs- s1, s2 rrr abd - soft/ Non tender ext- no edema neuro- aox 3 a/p anemia- likely of chronic disease transfuse when necessary-- stool for occult blood-ve gi work up as outpt dialysis per renal.---today ekg - junctional rhythm. cardiology consult noted and appreciated Holter ---sinus discharge planning anticipate discharge tomorrow. Will follow. Problem List - Problems (1) Abnormal ECG Code(s): R94.31 - ABNORMAL ELECTROCARDIOGRAM [ECG] [EKG] (2) ESRD (end stage renal disease) on dialysis Code(s): N18.6 - END STAGE RENAL DISEASE; Z99.2 - DEPENDENCE ON RENAL DIALYSIS (3) Symptomatic anemia Code(s): D64.9 - ANEMIA, UNSPECIFIED
[2017-10-27] MEDS: ATORVASTATIN CA 20 MG TABLET (FP) PO SCH (22:02)
[2017-10-28] MEDS: SEVELAMER CARBONATE 800 MG TAB (FP) PO SCH ×3 (05:45→21:26)
[2017-10-28] MEDS: BACITRACIN 15 GM TUBE TOPICAL OINTMENT TP SCH ×2 (05:57→12:00)
[2017-10-28] MEDS ORDERED: EPOETIN ALFA 2,000 UNITS/1 ML VIAL IVPUSH ONE (06:00)
[2017-10-28 06:08] LABS: HBSAG SCREEN Negative (Negative); HEP B CORE AB, TOT Negative (Negative)
[2017-10-28 09:24] LABS: HEMATOCRIT 25.1 % (35.4-49); HEMOGLOBIN 8.2 GM/dL (11.7-16.9); MCH 28.6 pg (25.7-33.7); MCHC 32.7 g/dl (32.0-35.9); MEAN CELL VOLUME 87.6 fl (80-96); MEAN PLT VOLUME 7.4 fl (7.5-11.1); PLATELET COUNT 190 K/MM3 (134-434); RBC 2.86 M/mm3 (4.00-5.60); RDW 15.4 % (11.9-15.9); WHITE BLOOD COUNT 6.6 K/mm3 (4.0-10.0)
[2017-10-28 09:47] LABS: ANION GAP 9 (8-16); BLOOD UREA NITROGEN 44 mg/dL (7-18); CALCIUM 8.9 mg/dL (8.5-10.1); CHLORIDE 99 mmol/L (98-107); CO2 29 mmol/L (21-32); CREATININE 5.8 mg/dL (0.7-1.3); GLUCOSE,RANDOM 117 mg/dL (74-106); PHOSPHOROUS 5.2 mg/dL (2.5-4.9); POTASSIUM 4.2 mmol/L (3.5-5.1); SODIUM 137 mmol/L (136-145)
--- NOTE | 2017-10-28 09:57 | PN ---
Progress Note (short form) - Note Progress Note: patient seen in dialysis today denies chest pain, sob complaints of diarrhea- but staff reports no diarrhea -Cdiff still pending wants to go home Vital Signs Temp 97.7 F 10/28/17 06:00 Pulse 82 10/28/17 09:00 Resp 18 10/28/17 09:00 BP 100/70 10/28/17 09:00 Pulse Ox 97 10/27/17 21:00 Intake & Output 10/27/17 10/27/17 10/28/17 11:59 23:59 11:59 Intake Total 380 970 240 Output Total 200 200 0 Balance 180 770 240 Weight 132 lb 2 oz Intake: Oral 380 970 240 Output: Urine 200 200 0 Void 200 200 0 Other: Voiding Method Diaper Diaper # Unmeasured Voids Void 0 2 Bowel Movement Yes No No Weight Measurement Method Standing Scale Active Medications Acetaminophen (Tylenol -) 650 mg PO Q6H PRN PRN Reason: FEVER OR PAIN Aspirin (Ecotrin -) 81 mg PO DAILY [facility] Last Admin: 10/27/17 10:22 Dose: 81 mg Atorvastatin Calcium (Lipitor -) 20 mg PO HS [facility] Last Admin: 10/27/17 22:02 Dose: 20 mg Bacitracin (Bacitracin -) 1 applic TP BID [facility] Last Admin: 10/28/17 05:57 Dose: Not Given Folic Acid (Folic Acid -) 1 mg PO DAILY [facility] Last Admin: 10/27/17 10:22 Dose: 1 mg Haloperidol (Haldol -) 5 mg PO DAILY [facility] Last Admin: 10/27/17 10:23 Dose: 5 mg Rifampin (Rifadin -) 300 mg PO DAILY [facility] Last Admin: 10/27/17 10:23 Dose: 300 mg Sevelamer Carbonate (Renvela -) 800 mg PO TID [facility] Last Admin: 10/28/17 05:45 Dose: 800 mg Abnormal Lab Results 10/24/17 10/28/17 10/28/17 07:03 07:00 07:00 RBC 2.86 L Hgb 8.2 L Hct 25.1 L MPV 7.4 L BUN 44 H D Creatinine 5.8 H D Random Glucose 117 H Phosphorus 5.2 H Crossmatch See Detail N- alert, oriented cvs-s1s2 lungs-clear abd-soft,nt LE- no edema A/P Symptomatic anemia abnormal EKG- junctional rythmn diarrhea- s/p intermediate cefazolin for MSSA bacteremia ESRD - s/p Transfusion of one unit PRBC Most likely due to Anemia of CKD GI work up as out patient- GUIAC negative holter report pending HD CDIFF PENDING- unable to collect since no diarrhea as per staff recent BALTA negative
--- NOTE | 2017-10-28 10:27 | PN ---
Progress Note, Physician Chief Complaint: Holter: sinus with 1st degree AV block History of Present Illness: no new complaints Seen and examined at HD - Current Medication List Current Medications: Active Medications Acetaminophen (Tylenol -) 650 mg PO Q6H PRN PRN Reason: FEVER OR PAIN Aspirin (Ecotrin -) 81 mg PO DAILY [facility] Last Admin: 10/27/17 10:22 Dose: 81 mg Atorvastatin Calcium (Lipitor -) 20 mg PO HS [facility] Last Admin: 10/27/17 22:02 Dose: 20 mg Bacitracin (Bacitracin -) 1 applic TP BID [facility] Last Admin: 10/28/17 05:57 Dose: Not Given Folic Acid (Folic Acid -) 1 mg PO DAILY [facility] Last Admin: 10/27/17 10:22 Dose: 1 mg Haloperidol (Haldol -) 5 mg PO DAILY [facility] Last Admin: 10/27/17 10:23 Dose: 5 mg Rifampin (Rifadin -) 300 mg PO DAILY [facility] Last Admin: 10/27/17 10:23 Dose: 300 mg Sevelamer Carbonate (Renvela -) 800 mg PO TID [facility] Last Admin: 10/28/17 05:45 Dose: 800 mg - Objective Vital Signs: Vital Signs Temperature 97.7 F 10/28/17 06:00 Pulse Rate 82 10/28/17 09:00 Respiratory Rate 18 10/28/17 09:00 Blood Pressure 100/70 10/28/17 09:00 O2 Sat by Pulse Oximetry (%) 97 10/27/17 21:00 Constitutional: Yes: Calm Cardiovascular: Yes: Regular Rate and Rhythm Respiratory: Yes: CTA Bilaterally Gastrointestinal: Yes: Soft Edema: No Neurological: Yes: Alert Labs: CBC, BMP 10/28/17 07:00 10/28/17 07:00 INR, PTT INR 1.27 (0.82-1.09) H 10/24/17 19:55 Problem List - Problems (1) Abnormal ECG Code(s): R94.31 - ABNORMAL ELECTROCARDIOGRAM [ECG] [EKG] (2) ESRD (end stage renal disease) on dialysis Code(s): N18.6 - END STAGE RENAL DISEASE; Z99.2 - DEPENDENCE ON RENAL DIALYSIS (3) Symptomatic anemia Code(s): D64.9 - ANEMIA, UNSPECIFIED (4) Gram-positive bacteremia Code(s): R78.81 - BACTEREMIA Assessment/Plan Problem List - Problems (1) Abnormal ECG Assessment/Plan: -Holter shows NSR with 1st degree AV block, no junctional rhythm -Normal LV function Code(s): R94.31 - ABNORMAL ELECTROCARDIOGRAM [ECG] [EKG] (2) ESRD (end stage renal disease) on dialysis Assessment/Plan: -HD as per renal Code(s): N18.6 - END STAGE RENAL DISEASE; Z99.2 - DEPENDENCE ON RENAL DIALYSIS (3) Symptomatic anemia Assessment/Plan: -guaiac negative -Transfusional support -Work up as per PMD Code(s): D64.9 - ANEMIA, UNSPECIFIED (4) Gram-positive bacteremia, ongoing diarrhea Assessment/Plan: -Recent BALTA negative -Surveillance cx and IV abx at HD as per ID -Check C. Diff Code(s): R78.81 - BACTEREMIA
[2017-10-28] MEDS ORDERED: EPOETIN ALFA 20,000 UNIT/1 ML VIAL IVPUSH ONE ×2 (11:30)
[2017-10-28] MEDS: ASPIRIN COATED 81 MG TABLET.EC PO SCH (11:59)
[2017-10-28] MEDS: FOLIC ACID 1 MG TABLET (FP) PO SCH (11:59)
[2017-10-28] MEDS: HALOPERIDOL 5 MG TABLET (FP) PO SCH (12:00)
[2017-10-28] MEDS: RIFAMPIN 300 MG CAPSULE PO SCH (12:00)
--- NOTE | 2017-10-28 16:14 | PN ---
Progress Note (short form) - Note Progress Note: Renal Follow up for ESRD on HD Pt seen and examined at the bedside s/p dialysis earlier today with 1L UF no acute complaints diarrhea has improved Vital Signs Temperature 97.9 F 10/28/17 15:33 Pulse Rate 93 H 10/28/17 15:33 Respiratory Rate 18 10/28/17 15:33 Blood Pressure 148/87 10/28/17 15:33 O2 Sat by Pulse Oximetry (%) 97 10/27/17 21:00 Intake & Output 10/25/17 10/26/17 10/27/17 10/28/17 23:59 23:59 23:59 23:59 Intake Total 209 618 8449 1500 Output Total 200 400 120 Balance 820 346 343 1120 Weight 60.339 kg 59.931 kg NAD awake and alert No LE edema CBC, BMP 10/28/17 07:00 10/28/17 07:00 Current Medications Acetaminophen (Tylenol -) 650 mg PO Q6H PRN PRN Reason: FEVER OR PAIN Aspirin (Ecotrin -) 81 mg PO DAILY [facility] Last Admin: 10/28/17 11:59 Dose: 81 mg Atorvastatin Calcium (Lipitor -) 20 mg PO HS [facility] Last Admin: 10/27/17 22:02 Dose: 20 mg Bacitracin (Bacitracin -) 1 applic TP BID [facility] Last Admin: 10/28/17 12:00 Dose: Not Given Folic Acid (Folic Acid -) 1 mg PO DAILY [facility] Last Admin: 10/28/17 11:59 Dose: 1 mg Haloperidol (Haldol -) 5 mg PO DAILY [facility] Last Admin: 10/28/17 12:00 Dose: 5 mg Rifampin (Rifadin -) 300 mg PO DAILY [facility] Last Admin: 10/28/17 12:00 Dose: 300 mg Sevelamer Carbonate (Renvela -) 800 mg PO TID [facility] Last Admin: 10/28/17 13:32 Dose: 800 mg 66 year old gentleman with PMhx of ESRD on HD (MWF at [facility]), Hypertension , Recent MSSA Bacteremia with suspected endocarditis who was sent into the ED from dialysis for low Hgb. Hgb has been in the 7's since hospital discharge but now it fell to 6.8 and pt was mildly hypotensive on dialysis. #ESRD on HD tolerated Hd with minimal UF today #Acute on Chronic Anemia in setting of CKD/Infection improved s/p transfusion but Hgb slightly downtrending transfuse for Hgb less then 8 as pt is on chronic dialysis #Atelectasis/PNA on CXR no leukocytosis, cough, fever, chills to indicate PNA #MSSA Bacteremia blood cultures drawn, no growth so far completed course of Abx #Diarrhea check C-diff antigen and toxin, high suspision for C-dif given long course of Abx as outpatient [facility]
--- NOTE | 2017-10-28 16:31 | PN ---
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 Documentation reviewed. Case discussed Agree with assessment and plan. patient refuses to go back to [facility]--wants to go back home. I also discussed with case management about this--- patient needs to have outpatient dialysis setup. They will update me. Patient otherwise medically stable. Will follow Vital Signs Temp 97.9 F 10/28/17 15:33 Pulse 93 H 10/28/17 15:33 Resp 18 10/28/17 15:33 BP 148/87 10/28/17 15:33 Pulse Ox 97 10/27/17 21:00 Intake & Output 10/27/17 10/28/17 10/28/17 23:59 11:59 23:59 Intake Total 719 636 9813 Output Total 200 0 120 Balance 960 806 0934 Weight 132 lb 2 oz Intake: Oral 970 240 780 Oral Supplement 480 Output: Urine 200 0 120 Void 200 0 120 Other: Voiding Method Diaper Diaper # Unmeasured Voids Void 2 0 Bowel Movement No No No Weight Measurement Method Standing Scale Active Medications Acetaminophen (Tylenol -) 650 mg PO Q6H PRN PRN Reason: FEVER OR PAIN Aspirin (Ecotrin -) 81 mg PO DAILY [facility] Last Admin: 10/28/17 11:59 Dose: 81 mg Atorvastatin Calcium (Lipitor -) 20 mg PO HS [facility] Last Admin: 10/27/17 22:02 Dose: 20 mg Bacitracin (Bacitracin -) 1 applic TP BID [facility] Last Admin: 10/28/17 12:00 Dose: Not Given Folic Acid (Folic Acid -) 1 mg PO DAILY [facility] Last Admin: 10/28/17 11:59 Dose: 1 mg Haloperidol (Haldol -) 5 mg PO DAILY [facility] Last Admin: 10/28/17 12:00 Dose: 5 mg Rifampin (Rifadin -) 300 mg PO DAILY [facility] Last Admin: 10/28/17 12:00 Dose: 300 mg Sevelamer Carbonate (Renvela -) 800 mg PO TID [facility] Last Admin: 10/28/17 13:32 Dose: 800 mg CBC, BMP 10/28/17 07:00 10/28/17 07:00 N- alert, oriented cvs-s1s2 lungs-clear abd-soft,nt LE- no edema stable Plan as mentioned above. Discharge planning in progress. Per nursing staff--- unable to get sample as there is no diarrhea. Problem List - Problems (1) Abnormal ECG Code(s): R94.31 - ABNORMAL ELECTROCARDIOGRAM [ECG] [EKG] (2) ESRD (end stage renal disease) on dialysis Code(s): N18.6 - END STAGE RENAL DISEASE; Z99.2 - DEPENDENCE ON RENAL DIALYSIS (3) Symptomatic anemia Code(s): D64.9 - ANEMIA, UNSPECIFIED
[2017-10-28] MEDS: ATORVASTATIN CA 20 MG TABLET (FP) PO SCH (21:25)
[2017-10-29] MEDS: BACITRACIN 15 GM TUBE TOPICAL OINTMENT TP SCH ×3 (00:50→21:47)
[2017-10-29] MEDS: SEVELAMER CARBONATE 800 MG TAB (FP) PO SCH ×3 (05:21→18:10)
[2017-10-29 08:27] LABS: EOS % 15.2 % (0-4.5); HEMATOCRIT 27.1 % (35.4-49); HEMOGLOBIN 8.6 GM/dL (11.7-16.9); LYMPH % 20.1 % (8-40); MCH 28.3 pg (25.7-33.7); MCHC 31.8 g/dl (32.0-35.9); MEAN PLT VOLUME 7.3 fl (7.5-11.1); MONO % 8.1 % (3.8-10.2); NEUT % 54.6 % (42.8-82.8); PLATELET COUNT 181 K/MM3 (134-434); RBC 3.04 M/mm3 (4.00-5.60); RDW 15.4 % (11.9-15.9); WHITE BLOOD COUNT 5.9 K/mm3 (4.0-10.0)
[2017-10-29 08:51] LABS: ANION GAP 6 (8-16); BLOOD UREA NITROGEN 37 mg/dL (7-18); CALCIUM 9.2 mg/dL (8.5-10.1); CHLORIDE 101 mmol/L (98-107); CO2 32 mmol/L (21-32); CREATININE 4.4 mg/dL (0.7-1.3); GLUCOSE,RANDOM 78 mg/dL (74-106); MAGNESIUM 2.6 mg/dL (1.8-2.4); PHOSPHOROUS 4.1 mg/dL (2.5-4.9); SODIUM 139 mmol/L (136-145)
[2017-10-29] MEDS ORDERED: PT OWN MED DRAWER 7, Y5N ONE (08:58)
[2017-10-29] MEDS: ASPIRIN COATED 81 MG TABLET.EC PO SCH (11:13)
[2017-10-29] MEDS: HALOPERIDOL 5 MG TABLET (FP) PO SCH (11:13)
[2017-10-29] MEDS: RIFAMPIN 300 MG CAPSULE PO SCH (11:14)
[2017-10-29] MEDS: FOLIC ACID 1 MG TABLET (FP) PO SCH (11:14)
--- NOTE | 2017-10-29 14:19 | PN ---
Progress Note, Physician Chief Complaint: Pt alert; denies chest pain or shortness of breath. History of Present Illness: Patient is a 66 yo black man with PMH of ESRD on HD MWF, endocarditis, and anemia (7-11.5) who presents to the ED with low hemoglobin sent from [facility]. Patient states that he is feeling tired and weak. He denies any vomiting or nausea. Patient is a poor historian. Recent admission for 2 week stay for gram positive bacteremia. Recently had a graft change since there was a concern that was the source of thrombosis. - Current Medication List Current Medications: Active Medications Acetaminophen (Tylenol -) 650 mg PO Q6H PRN PRN Reason: FEVER OR PAIN Aspirin (Ecotrin -) 81 mg PO DAILY [facility] Last Admin: 10/29/17 11:13 Dose: 81 mg Atorvastatin Calcium (Lipitor -) 20 mg PO HS [facility] Last Admin: 10/28/17 21:25 Dose: 20 mg Bacitracin (Bacitracin -) 1 applic TP BID [facility] Last Admin: 10/29/17 11:14 Dose: Not Given Folic Acid (Folic Acid -) 1 mg PO DAILY [facility] Last Admin: 10/29/17 11:14 Dose: 1 mg Haloperidol (Haldol -) 5 mg PO DAILY [facility] Last Admin: 10/29/17 11:13 Dose: 5 mg Rifampin (Rifadin -) 300 mg PO DAILY [facility] Last Admin: 10/29/17 11:14 Dose: 300 mg Sevelamer Carbonate (Renvela -) 800 mg PO TIDCM [facility] Last Admin: 10/29/17 12:13 Dose: 800 mg - Objective Vital Signs: Vital Signs Temperature 97.9 F 10/29/17 14:10 Pulse Rate 100 H 10/29/17 14:10 Respiratory Rate 18 10/29/17 10:00 Blood Pressure 115/72 10/29/17 14:10 O2 Sat by Pulse Oximetry (%) 95 10/29/17 09:00 Labs: CBC, BMP 10/29/17 07:50 10/29/17 07:50 INR, PTT INR 1.27 (0.82-1.09) H 10/24/17 19:55 Problem List - Problems (1) ESRD (end stage renal disease) on dialysis 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 Code(s): N18.6 - END STAGE RENAL DISEASE; Z99.2 - DEPENDENCE ON RENAL DIALYSIS (2) Complication of AV dialysis fistula Code(s): T82.9XXA - UNSP COMP OF CARDIAC AND VASCULAR PROSTH DEV/GRFT, INIT (3) Sepsis Code(s): A41.9 - SEPSIS, UNSPECIFIED ORGANISM Qualifiers: Sepsis type: sepsis due to unspecified organism Qualified Code(s): A41.9 - Sepsis, unspecified organism (4) Hyperlipidemia Assessment/Plan: on statin Code(s): E78.5 - HYPERLIPIDEMIA, UNSPECIFIED
--- NOTE | 2017-10-29 15:15 | PN ---
Progress Note, Physician History of Present Illness: feels well. no complains no diarrhea refuses to go back to [facility] [employer] note reviewed-- no out patient dialysis set up yet. - Current Medication List Current Medications: Active Medications Acetaminophen (Tylenol -) 650 mg PO Q6H PRN PRN Reason: FEVER OR PAIN Aspirin (Ecotrin -) 81 mg PO DAILY [facility] Last Admin: 10/29/17 11:13 Dose: 81 mg Atorvastatin Calcium (Lipitor -) 20 mg PO HS [facility] Last Admin: 10/28/17 21:25 Dose: 20 mg Bacitracin (Bacitracin -) 1 applic TP BID [facility] Last Admin: 10/29/17 11:14 Dose: Not Given Folic Acid (Folic Acid -) 1 mg PO DAILY [facility] Last Admin: 10/29/17 11:14 Dose: 1 mg Haloperidol (Haldol -) 5 mg PO DAILY [facility] Last Admin: 10/29/17 11:13 Dose: 5 mg Rifampin (Rifadin -) 300 mg PO DAILY [facility] Last Admin: 10/29/17 11:14 Dose: 300 mg Sevelamer Carbonate (Renvela -) 800 mg PO TIDCM [facility] Last Admin: 10/29/17 12:13 Dose: 800 mg - Objective Vital Signs: Vital Signs Temperature 97.9 F 10/29/17 14:10 Pulse Rate 100 H 10/29/17 14:10 Respiratory Rate 18 10/29/17 10:00 Blood Pressure 115/72 10/29/17 14:10 O2 Sat by Pulse Oximetry (%) 95 10/29/17 09:00 Constitutional: Yes: No Distress, Calm Neck: Yes: Supple Cardiovascular: Yes: Regular Rate and Rhythm Respiratory: Yes: CTA Bilaterally Gastrointestinal: Yes: Normal Bowel Sounds, Soft Edema: No Neurological: Yes: Alert, Oriented Psychiatric: Yes: Alert Labs: CBC, BMP 10/29/17 07:50 10/29/17 07:50 INR, PTT INR 1.27 (0.82-1.09) H 10/24/17 19:55 Problem List - Problems (1) Abnormal ECG Code(s): R94.31 - ABNORMAL ELECTROCARDIOGRAM [ECG] [EKG] (2) ESRD (end stage renal disease) on dialysis Code(s): N18.6 - END STAGE RENAL DISEASE; Z99.2 - DEPENDENCE ON RENAL DIALYSIS (3) Symptomatic anemia Code(s): D64.9 - ANEMIA, UNSPECIFIED Assessment/Plan medically stable for discharge pending out patient dialysis set up. discussed with nursing staff also. physical therapy also ordered will follow.
--- NOTE | 2017-10-29 19:05 | PN ---
Progress Note (short form) - Note Progress Note: esrd on hd mssa bacteremia diarrhea r/o c diff Active Medications Acetaminophen (Tylenol -) 650 mg PO Q6H PRN PRN Reason: FEVER OR PAIN Aspirin (Ecotrin -) 81 mg PO DAILY [facility] Last Admin: 10/29/17 11:13 Dose: 81 mg Atorvastatin Calcium (Lipitor -) 20 mg PO HS [facility] Last Admin: 10/28/17 21:25 Dose: 20 mg Bacitracin (Bacitracin -) 1 applic TP BID [facility] Last Admin: 10/29/17 11:14 Dose: Not Given Folic Acid (Folic Acid -) 1 mg PO DAILY [facility] Last Admin: 10/29/17 11:14 Dose: 1 mg Haloperidol (Haldol -) 5 mg PO DAILY [facility] Last Admin: 10/29/17 11:13 Dose: 5 mg Rifampin (Rifadin -) 300 mg PO DAILY [facility] Last Admin: 10/29/17 11:14 Dose: 300 mg Sevelamer Carbonate (Renvela -) 800 mg PO TIDCM [facility] Last Admin: 10/29/17 18:10 Dose: 800 mg Last Vital Signs Temp Pulse Resp BP Pulse Ox 97.9 F 100 H 18 115/72 95 10/29/17 14:10 10/29/17 14:10 10/29/17 10:00 10/29/17 14:10 10/29/17 09:00 CBC, BMP 10/29/17 07:50 10/29/17 07:50
[2017-10-29] MEDS: ATORVASTATIN CA 20 MG TABLET (FP) PO SCH (21:47)
[2017-10-30] MEDS: SEVELAMER CARBONATE 800 MG TAB (FP) PO SCH ×3 (09:03→17:58)
[2017-10-30] MEDS: ASPIRIN COATED 81 MG TABLET.EC PO SCH (12:20)
[2017-10-30] MEDS: BACITRACIN 15 GM TUBE TOPICAL OINTMENT TP SCH ×2 (12:20→21:26)
[2017-10-30] MEDS: FOLIC ACID 1 MG TABLET (FP) PO SCH (12:20)
[2017-10-30] MEDS: HALOPERIDOL 5 MG TABLET (FP) PO SCH (12:22)
[2017-10-30] MEDS: RIFAMPIN 300 MG CAPSULE PO SCH (12:23)
--- NOTE | 2017-10-30 12:59 | PN ---
Progress Note, Physician History of Present Illness: comfortable no new issues feels well. - Current Medication List Current Medications: Active Medications Acetaminophen (Tylenol -) 650 mg PO Q6H PRN PRN Reason: FEVER OR PAIN Aspirin (Ecotrin -) 81 mg PO DAILY [facility] Last Admin: 10/30/17 12:20 Dose: 81 mg Atorvastatin Calcium (Lipitor -) 20 mg PO HS [facility] Last Admin: 10/29/17 21:47 Dose: 20 mg Bacitracin (Bacitracin -) 1 applic TP BID [facility] Last Admin: 10/30/17 12:20 Dose: Not Given Folic Acid (Folic Acid -) 1 mg PO DAILY [facility] Last Admin: 10/30/17 12:20 Dose: 1 mg Haloperidol (Haldol -) 5 mg PO DAILY [facility] Last Admin: 10/30/17 12:22 Dose: 5 mg Rifampin (Rifadin -) 300 mg PO DAILY [facility] Last Admin: 10/30/17 12:23 Dose: 300 mg Sevelamer Carbonate (Renvela -) 800 mg PO TIDCM [facility] Last Admin: 10/30/17 12:23 Dose: 800 mg - Objective Vital Signs: Vital Signs Temperature 97.7 F 10/30/17 12:00 Pulse Rate 92 H 10/30/17 12:00 Respiratory Rate 18 10/30/17 12:00 Blood Pressure 138/91 10/30/17 12:00 O2 Sat by Pulse Oximetry (%) 100 10/29/17 21:00 Constitutional: Yes: No Distress, Calm Eyes: Yes: Conjunctiva Clear Neck: Yes: Supple Cardiovascular: Yes: Regular Rate and Rhythm Respiratory: Yes: CTA Bilaterally Gastrointestinal: Yes: Soft Edema: No Neurological: Yes: Alert Psychiatric: Yes: Alert Labs: CBC, BMP 10/29/17 07:50 10/29/17 07:50 INR, PTT INR 1.27 (0.82-1.09) H 10/24/17 19:55 Problem List - Problems (1) Abnormal ECG Code(s): R94.31 - ABNORMAL ELECTROCARDIOGRAM [ECG] [EKG] (2) ESRD (end stage renal disease) on dialysis Code(s): N18.6 - END STAGE RENAL DISEASE; Z99.2 - DEPENDENCE ON RENAL DIALYSIS (3) Symptomatic anemia Code(s): D64.9 - ANEMIA, UNSPECIFIED Assessment/Plan medically stable for discharge pending out patient dialysis set up. discussed with nursing staff also. physical therapy will follow. has dialysis today.
--- NOTE | 2017-10-30 19:39 | PN ---
Progress Note (short form) - Note Progress Note: esrd on hd mssa bacteremia diarrhea r/o c diff Current Medications Acetaminophen (Tylenol -) 650 mg PO Q6H PRN PRN Reason: FEVER OR PAIN Aspirin (Ecotrin -) 81 mg PO DAILY [facility] Last Admin: 10/30/17 12:20 Dose: 81 mg Atorvastatin Calcium (Lipitor -) 20 mg PO HS [facility] Last Admin: 10/29/17 21:47 Dose: 20 mg Bacitracin (Bacitracin -) 1 applic TP BID [facility] Last Admin: 10/30/17 12:20 Dose: Not Given Folic Acid (Folic Acid -) 1 mg PO DAILY [facility] Last Admin: 10/30/17 12:20 Dose: 1 mg Haloperidol (Haldol -) 5 mg PO DAILY [facility] Last Admin: 10/30/17 12:22 Dose: 5 mg Rifampin (Rifadin -) 300 mg PO DAILY [facility] Last Admin: 10/30/17 12:23 Dose: 300 mg Sevelamer Carbonate (Renvela -) 800 mg PO TIDCM [facility] Last Admin: 10/30/17 17:58 Dose: 800 mg Last Vital Signs Temp Pulse Resp BP Pulse Ox 97.4 F L 100 H 18 119/89 100 10/30/17 19:00 10/30/17 19:00 10/30/17 19:00 10/30/17 19:00 10/30/17 12:00 sleepy lungs clear heart reg abd soft nontender ext no edema CBC, BMP 10/29/17 07:50 10/29/17 07:50 esrd on had s/p hd treatment uneventful
[2017-10-30] MEDS: ATORVASTATIN CA 20 MG TABLET (FP) PO SCH (21:25)
[2017-10-31] MEDS ORDERED: PT OWN MED DRAWER 7, Y5N ONE (08:43)
[2017-10-31] MEDS: SEVELAMER CARBONATE 800 MG TAB (FP) PO SCH ×3 (08:46→17:55)
[2017-10-31] MEDS: HALOPERIDOL 5 MG TABLET (FP) PO SCH (09:01)
[2017-10-31] MEDS: FOLIC ACID 1 MG TABLET (FP) PO SCH (09:02)
[2017-10-31] MEDS: RIFAMPIN 300 MG CAPSULE PO SCH (09:02)
[2017-10-31] MEDS: BACITRACIN 15 GM TUBE TOPICAL OINTMENT TP SCH ×2 (09:02→22:27)
[2017-10-31] MEDS: ASPIRIN COATED 81 MG TABLET.EC PO SCH (09:02)
--- NOTE | 2017-10-31 11:41 | PN ---
Progress Note (short form) - Note Progress Note: pt seen/ examined. no new issues feels ok. Vital Signs Temp 98.7 F 10/31/17 06:00 Pulse 88 10/31/17 08:56 Resp 18 10/31/17 08:56 BP 142/90 10/31/17 08:56 Pulse Ox 98 10/31/17 08:54 Intake & Output 10/30/17 10/30/17 10/31/17 11:59 23:59 11:59 Intake Total 815 Output Total 0 Balance 815 Weight 136 lb 12.8 oz Intake: Oral 815 Output: Urine 0 Void 0 Other: Voiding Method Urinal Urinal # Unmeasured Voids Void 200 Bowel Movement No No Weight Measurement Method Standing Scale Active Medications Acetaminophen (Tylenol -) 650 mg PO Q6H PRN PRN Reason: FEVER OR PAIN Aspirin (Ecotrin -) 81 mg PO DAILY [facility] Last Admin: 10/31/17 09:02 Dose: 81 mg Atorvastatin Calcium (Lipitor -) 20 mg PO HS [facility] Last Admin: 10/30/17 21:25 Dose: 20 mg Bacitracin (Bacitracin -) 1 applic TP BID [facility] Last Admin: 10/31/17 09:02 Dose: Not Given Folic Acid (Folic Acid -) 1 mg PO DAILY [facility] Last Admin: 10/31/17 09:02 Dose: 1 mg Haloperidol (Haldol -) 5 mg PO DAILY [facility] Last Admin: 10/31/17 09:01 Dose: 5 mg Rifampin (Rifadin -) 300 mg PO DAILY [facility] Last Admin: 10/31/17 09:02 Dose: 300 mg Sevelamer Carbonate (Renvela -) 800 mg PO TIDCM [facility] Last Admin: 10/31/17 08:46 Dose: 800 mg CBC, BMP 10/29/17 07:50 10/29/17 07:50 Microbiology 10/25/17 21:00 Blood Culture - Final Blood - Peripheral Venous NO GROWTH AFTER 5 DAYS INCUBATION 10/25/17 19:30 Blood Culture - Final Blood - Peripheral Venous NO GROWTH AFTER 5 DAYS INCUBATION 10/26/17 16:30 Blood Culture - Preliminary Blood - Pre-Dialysis NO GROWTH OBTAINED AFTER 96 HOURS, INCUBATION TO CONTINUE FOR 1 DAYS. Physical Exam. Constitutional: Yes: No Distress, Calm. comfortable. Eyes: Yes: Conjunctiva Clear Neck: Yes: Supple Cardiovascular: Yes: Regular Rate and Rhythm Respiratory: Yes: CTA Bilaterally Gastrointestinal: Yes: Soft/ non tender Edema: No Neurological: Yes: Alert Psychiatric: Yes: Alert Labs: Problem List - Problems (1) Abnormal ECG Code(s): R94.31 - ABNORMAL ELECTROCARDIOGRAM [ECG] [EKG] (2) ESRD (end stage renal disease) on dialysis Code(s): N18.6 - END STAGE RENAL DISEASE; Z99.2 - DEPENDENCE ON RENAL DIALYSIS (3) Symptomatic anemia Code(s): D64.9 - ANEMIA, UNSPECIFIED Assessment/Plan stable medically stable for discharge pending out patient dialysis set up. physical therapy will follow. Problem List - Problems (1) Abnormal ECG Code(s): R94.31 - ABNORMAL ELECTROCARDIOGRAM [ECG] [EKG] (2) ESRD (end stage renal disease) on dialysis Code(s): N18.6 - END STAGE RENAL DISEASE; Z99.2 - DEPENDENCE ON RENAL DIALYSIS (3) Symptomatic anemia Code(s): D64.9 - ANEMIA, UNSPECIFIED
--- NOTE | 2017-10-31 18:43 | PN ---
Progress Note (short form) - Note Progress Note: esrd on hd mssa bacteremia diarrhea r/o c diff Current Medications Acetaminophen (Tylenol -) 650 mg PO Q6H PRN PRN Reason: FEVER OR PAIN Aspirin (Ecotrin -) 81 mg PO DAILY [facility] Last Admin: 10/31/17 09:02 Dose: 81 mg Atorvastatin Calcium (Lipitor -) 20 mg PO HS [facility] Last Admin: 10/30/17 21:25 Dose: 20 mg Bacitracin (Bacitracin -) 1 applic TP BID [facility] Last Admin: 10/31/17 09:02 Dose: Not Given Folic Acid (Folic Acid -) 1 mg PO DAILY [facility] Last Admin: 10/31/17 09:02 Dose: 1 mg Haloperidol (Haldol -) 5 mg PO DAILY [facility] Last Admin: 10/31/17 09:01 Dose: 5 mg Rifampin (Rifadin -) 300 mg PO DAILY [facility] Last Admin: 10/31/17 09:02 Dose: 300 mg Sevelamer Carbonate (Renvela -) 800 mg PO TIDCM [facility] Last Admin: 10/31/17 17:55 Dose: 800 mg nurse reports he is coughing a lot he c/o generalized weakness Last Vital Signs Temp Pulse Resp BP Pulse Ox 98.1 F 94 H 18 139/90 98 10/31/17 14:44 10/31/17 14:44 10/31/17 14:44 10/31/17 14:44 10/31/17 08:54 lungs diminished sounds, rare rhonchi abd soft nontender ext no edema CBC, BMP 10/29/17 07:50 10/29/17 07:50 IMP esrd on hd mssa bacteremia generalized weakness- may be getting better dry cough- used to have asthma, refused bronchodilator trial Plan hd on tuesday cough syrup
[2017-10-31] MEDS: ATORVASTATIN CA 20 MG TABLET (FP) PO SCH (22:27)
[2017-11-01 07:27] LABS: HEMOGLOBIN 10.1 GM/dL (11.7-16.9); MCH 28.4 pg (25.7-33.7); MCHC 31.6 g/dl (32.0-35.9); MEAN PLT VOLUME 7.8 fl (7.5-11.1); PLATELET COUNT 204 K/MM3 (134-434); RBC 3.56 M/mm3 (4.00-5.60); RDW 15.5 % (11.9-15.9); WHITE BLOOD COUNT 6.6 K/mm3 (4.0-10.0)
--- NOTE | 2017-11-01 07:31 | PN ---
Progress Note, Physician Chief Complaint: Pt does not want to answer questions. Allows brief examination. History of Present Illness: Patient is a 66 yo black man with PMH of ESRD on HD MWF, endocarditis, and anemia (7-11.5) who presents to the ED with low hemoglobin sent from [facility]. Patient states that he is feeling tired and weak. He denies any vomiting or nausea. Patient is a poor historian. Recent admission for 2 week stay for gram positive bacteremia. Recently had a graft change since there was a concern that was the source of thrombosis. - Current Medication List Current Medications: Active Medications Acetaminophen (Tylenol -) 650 mg PO Q6H PRN PRN Reason: FEVER OR PAIN Aspirin (Ecotrin -) 81 mg PO DAILY [facility] Last Admin: 10/31/17 09:02 Dose: 81 mg Atorvastatin Calcium (Lipitor -) 20 mg PO HS [facility] Last Admin: 10/31/17 22:27 Dose: 20 mg Bacitracin (Bacitracin -) 1 applic TP BID [facility] Last Admin: 10/31/17 22:27 Dose: Not Given Folic Acid (Folic Acid -) 1 mg PO DAILY [facility] Last Admin: 10/31/17 09:02 Dose: 1 mg Guaifenesin (Diabetic Tussin Dm -) 5 ml PO Q4H PRN PRN Reason: COUGH Haloperidol (Haldol -) 5 mg PO DAILY [facility] Last Admin: 10/31/17 09:01 Dose: 5 mg Rifampin (Rifadin -) 300 mg PO DAILY [facility] Last Admin: 10/31/17 09:02 Dose: 300 mg Sevelamer Carbonate (Renvela -) 800 mg PO TIDCM [facility] Last Admin: 10/31/17 17:55 Dose: 800 mg - Objective Vital Signs: Vital Signs Temperature 97.4 F L 10/31/17 22:00 Pulse Rate 96 H 10/31/17 22:00 Respiratory Rate 20 10/31/17 22:00 Blood Pressure 131/85 10/31/17 22:00 O2 Sat by Pulse Oximetry (%) 99 10/31/17 21:00 Constitutional: Yes: Thin, Other (anger) Eyes: Yes: WNL HENT: Yes: WNL Neck: Yes: WNL Cardiovascular: Yes: S1 (split), S2 Respiratory: Yes: WNL Gastrointestinal: Yes: Soft ...Rectal Exam: Yes: Deferred Genitourinary: Yes: Anuria, Oliguria Musculoskeletal: Yes: Muscle Weakness Extremities: Yes: Cool Edema: No Peripheral Pulses WNL: No Peripheral Pulses: Left Doralis Pedis: 1+, Right Dorsalis Pedis: 1+ Neurological: Yes: Alert, Weakness Psychiatric: Yes: Other Labs: INR, PTT INR 1.27 (0.82-1.09) H 10/24/17 19:55 Problem List - Problems (1) ESRD (end stage renal disease) on dialysis Assessment/Plan: f/u with accounts receivable analyst; on hemodialysis three times weekly. Code(s): N18.6 - END STAGE RENAL DISEASE; Z99.2 - DEPENDENCE ON RENAL DIALYSIS (2) Complication of AV dialysis fistula Code(s): T82.9XXA - UNSP COMP OF CARDIAC AND VASCULAR PROSTH DEV/GRFT, INIT (3) Sepsis Code(s): A41.9 - SEPSIS, UNSPECIFIED ORGANISM Qualifiers: Sepsis type: sepsis due to unspecified organism Qualified Code(s): A41.9 - Sepsis, unspecified organism (4) Hyperlipidemia Assessment/Plan: on statin Code(s): E78.5 - HYPERLIPIDEMIA, UNSPECIFIED (5) Hypertension Assessment/Plan: f/u serially; medication Code(s): I10 - ESSENTIAL (PRIMARY) HYPERTENSION (6) Hypothyroid Assessment/Plan: elevated TSH; f/u TFTs. Code(s): E03.9 - HYPOTHYROIDISM, UNSPECIFIED
[2017-11-01 07:38] LABS: ALBUMIN 1.9 g/dl (3.4-5.0); ANION GAP 11 (8-16); BLOOD UREA NITROGEN 55 mg/dL (7-18); CALCIUM 9.8 mg/dL (8.5-10.1); CHLORIDE 98 mmol/L (98-107); CO2 29 mmol/L (21-32); CREATININE 5.4 mg/dL (0.7-1.3); GLUCOSE,RANDOM 73 mg/dL (74-106); SGPT/ALT < 6 U/L (12-78); SODIUM 138 mmol/L (136-145)
[2017-11-01 07:39] LABS: ALK PHOS 130 U/L (45-117); BILIRUBIN,TOTAL 0.6 mg/dL (0.2-1.0); TOT PROT 7.3 g/dl (6.4-8.2)
[2017-11-01 08:13] LABS: POTASSIUM 4.7 mmol/L (3.5-5.1); SGOT/AST 23 U/L (15-37)
[2017-11-01] MEDS ORDERED: PT OWN MED DRAWER 7, Y5N ONE ×4 (08:19→22:09)
[2017-11-01] MEDS: SEVELAMER CARBONATE 800 MG TAB (FP) PO SCH ×3 (08:24→17:47)
--- NOTE | 2017-11-01 09:35 | PN ---
Progress Note, Physician Chief Complaint: sleeping comfortably this AM No acute distress - Current Medication List Current Medications: Active Medications Acetaminophen (Tylenol -) 650 mg PO Q6H PRN PRN Reason: FEVER OR PAIN Aspirin (Ecotrin -) 81 mg PO DAILY [facility] Last Admin: 10/31/17 09:02 Dose: 81 mg Atorvastatin Calcium (Lipitor -) 20 mg PO HS [facility] Last Admin: 10/31/17 22:27 Dose: 20 mg Bacitracin (Bacitracin -) 1 applic TP BID [facility] Last Admin: 10/31/17 22:27 Dose: Not Given Folic Acid (Folic Acid -) 1 mg PO DAILY [facility] Last Admin: 10/31/17 09:02 Dose: 1 mg Guaifenesin (Diabetic Tussin Dm -) 5 ml PO Q4H PRN PRN Reason: COUGH Haloperidol (Haldol -) 5 mg PO DAILY [facility] Last Admin: 10/31/17 09:01 Dose: 5 mg Rifampin (Rifadin -) 300 mg PO DAILY [facility] Last Admin: 10/31/17 09:02 Dose: 300 mg Sevelamer Carbonate (Renvela -) 800 mg PO TIDCM [facility] Last Admin: 11/01/17 08:24 Dose: 800 mg - Objective Vital Signs: Vital Signs Temperature 98.9 F 11/01/17 09:00 Pulse Rate 92 H 11/01/17 09:00 Respiratory Rate 18 11/01/17 09:00 Blood Pressure 128/75 11/01/17 09:00 O2 Sat by Pulse Oximetry (%) 99 10/31/17 21:00 Constitutional: Yes: No Distress, Calm Cardiovascular: Yes: Regular Rate and Rhythm Respiratory: Yes: CTA Bilaterally Gastrointestinal: Yes: Soft Edema: No Labs: CBC, BMP 11/01/17 06:25 11/01/17 06:25 INR, PTT INR 1.27 (0.82-1.09) H 10/24/17 19:55 Microbiology 10/26/17 16:30 Blood - Pre-Dialysis Blood Culture - Preliminary NO GROWTH OBTAINED AFTER 24 HOURS, INCUBATION TO CONTINUE FOR 4 DAYS. 10/25/17 21:00 Blood - Peripheral Venous Blood Culture - Preliminary NO GROWTH OBTAINED AFTER 48 HOURS, INCUBATION TO CONTINUE FOR 3 DAYS. 10/25/17 19:30 Blood - Peripheral Venous Blood Culture - Preliminary NO GROWTH OBTAINED AFTER 48 HOURS, INCUBATION TO CONTINUE FOR 3 DAYS. Laboratory Tests 10/28/17 10/28/17 07:00 07:00 WBC 6.6 Hgb 8.2 L Plt Count 190 Sodium 137 Potassium 4.2 BUN 44 H D Creatinine 5.8 H D Problem List - Problems (1) Abnormal ECG Code(s): R94.31 - ABNORMAL ELECTROCARDIOGRAM [ECG] [EKG] (2) ESRD (end stage renal disease) on dialysis Code(s): N18.6 - END STAGE RENAL DISEASE; Z99.2 - DEPENDENCE ON RENAL DIALYSIS (3) Symptomatic anemia Code(s): D64.9 - ANEMIA, UNSPECIFIED (4) Gram-positive bacteremia Code(s): R78.81 - BACTEREMIA Assessment/Plan - Problems (1) ESRD (end stage renal disease) on dialysis Assessment/Plan: -Regular HD as per renal Code(s): N18.6 - END STAGE RENAL DISEASE; Z99.2 - DEPENDENCE ON RENAL DIALYSIS (2) Complication of AV dialysis fistula Code(s): T82.9XXA - UNSP COMP OF CARDIAC AND VASCULAR PROSTH DEV/GRFT, INIT (3) Sepsis Code(s): A41.9 - SEPSIS, UNSPECIFIED ORGANISM -Blood cultures negative, awaiting C. Diff result Qualifiers: Sepsis type: sepsis due to unspecified organism Qualified Code(s): A41.9 - Sepsis, unspecified organism (4) Hyperlipidemia Assessment/Plan: -Cont. statin Code(s): E78.5 - HYPERLIPIDEMIA, UNSPECIFIED (5) Hypertension Assessment/Plan: -Currently well controlled Code(s): I10 - ESSENTIAL (PRIMARY) HYPERTENSION (6) Hypothyroid Assessment/Plan: -elevated TSH; f/u TFTs; f/u PMD Code(s): E03.9 - HYPOTHYROIDISM, UNSPECIFIED
[2017-11-01] MEDS: BACITRACIN 15 GM TUBE TOPICAL OINTMENT TP SCH ×2 (10:34→21:57)
[2017-11-01] MEDS: HALOPERIDOL 5 MG TABLET (FP) PO SCH ×2 (10:37→10:42)
[2017-11-01] MEDS: ASPIRIN COATED 81 MG TABLET.EC PO SCH (10:37)
[2017-11-01] MEDS: FOLIC ACID 1 MG TABLET (FP) PO SCH (10:37)
[2017-11-01] MEDS: RIFAMPIN 300 MG CAPSULE PO SCH (10:37)
--- NOTE | 2017-11-01 16:23 | PN ---
Progress Note (short form) - Note Progress Note: comfortable No new issues Vital Signs Temp 97.6 F 11/01/17 14:55 Pulse 101 H 11/01/17 14:55 Resp 18 11/01/17 09:00 BP 142/99 11/01/17 14:55 Pulse Ox 99 10/31/17 21:00 Intake & Output 10/31/17 11/01/17 11/01/17 23:59 11:59 23:59 Intake Total 400 300 375 Output Total 450 300 Balance -50 0 375 Intake: Oral 400 300 375 Output: Urine 450 300 Void 450 300 Other: Voiding Method Urinal Urinal # Unmeasured Voids Void 0 Bowel Movement No No Active Medications Acetaminophen (Tylenol -) 650 mg PO Q6H PRN PRN Reason: FEVER OR PAIN Aspirin (Ecotrin -) 81 mg PO DAILY [facility] Last Admin: 11/01/17 10:37 Dose: 81 mg Atorvastatin Calcium (Lipitor -) 20 mg PO HS [facility] Last Admin: 10/31/17 22:27 Dose: 20 mg Bacitracin (Bacitracin -) 1 applic TP BID [facility] Last Admin: 11/01/17 10:34 Dose: Not Given Folic Acid (Folic Acid -) 1 mg PO DAILY [facility] Last Admin: 11/01/17 10:37 Dose: 1 mg Guaifenesin (Diabetic Tussin Dm -) 5 ml PO Q4H PRN PRN Reason: COUGH Haloperidol (Haldol -) 5 mg PO DAILY [facility] Last Admin: 11/01/17 10:42 Dose: Not Given Rifampin (Rifadin -) 300 mg PO DAILY [facility] Last Admin: 11/01/17 10:37 Dose: 300 mg Sevelamer Carbonate (Renvela -) 800 mg PO TIDCM [facility] Last Admin: 11/01/17 12:41 Dose: 800 mg CBC, BMP 11/01/17 06:25 11/01/17 06:25 Physical Exam. Constitutional: Yes: No Distress, Calm. comfortable. Eyes: Yes: Conjunctiva Clear Neck: Yes: Supple/ no JVD Cardiovascular: Yes: Regular Rate and Rhythm Respiratory: Yes: CTA Bilaterally Gastrointestinal: Yes: Soft/ non tender Edema: No Neurological: Yes: Alert and awake Psychiatric: Yes: Alert Assessment/Plan stable medically stable for discharge pending out patient dialysis set up. discussed with pillowcase turner also again today--- anticipate outpatient dialysis set up by tomorrow. physical therapy will follow. Problem List - Problems (1) Abnormal ECG Code(s): R94.31 - ABNORMAL ELECTROCARDIOGRAM [ECG] [EKG] (2) ESRD (end stage renal disease) on dialysis Code(s): N18.6 - END STAGE RENAL DISEASE; Z99.2 - DEPENDENCE ON RENAL DIALYSIS (3) Symptomatic anemia Code(s): D64.9 - ANEMIA, UNSPECIFIED Problem List - Problems (1) Abnormal ECG Code(s): R94.31 - ABNORMAL ELECTROCARDIOGRAM [ECG] [EKG] (2) ESRD (end stage renal disease) on dialysis Code(s): N18.6 - END STAGE RENAL DISEASE; Z99.2 - DEPENDENCE ON RENAL DIALYSIS (3) Symptomatic anemia Code(s): D64.9 - ANEMIA, UNSPECIFIED
[2017-11-01] MEDS: ATORVASTATIN CA 20 MG TABLET (FP) PO SCH (21:55)
[2017-11-01] MEDS: guaiFENesin/D-M SUGAR-FREE/ACLHOL-FREE 118 ML BOTTLE PO PRN (21:56)
--- NOTE | 2017-11-02 00:20 | PN ---
Progress Note (short form) - Note Progress Note: seen on 11/01/17 esrd on hd mssa bacteremia diarrhea r/o c diff Current Medications Acetaminophen (Tylenol -) 650 mg PO Q6H PRN PRN Reason: FEVER OR PAIN Aspirin (Ecotrin -) 81 mg PO DAILY [facility] Last Admin: 11/01/17 10:37 Dose: 81 mg Atorvastatin Calcium (Lipitor -) 20 mg PO HS [facility] Last Admin: 11/01/17 21:55 Dose: 20 mg Bacitracin (Bacitracin -) 1 applic TP BID [facility] Last Admin: 11/01/17 21:57 Dose: Not Given Folic Acid (Folic Acid -) 1 mg PO DAILY [facility] Last Admin: 11/01/17 10:37 Dose: 1 mg Guaifenesin (Diabetic Tussin Dm -) 5 ml PO Q4H PRN PRN Reason: COUGH Last Admin: 11/01/17 21:56 Dose: 5 ml Haloperidol (Haldol -) 5 mg PO DAILY [facility] Last Admin: 11/01/17 10:42 Dose: Not Given Rifampin (Rifadin -) 300 mg PO DAILY [facility] Last Admin: 11/01/17 10:37 Dose: 300 mg Sevelamer Carbonate (Renvela -) 800 mg PO TIDCM [facility] Last Admin: 11/01/17 17:47 Dose: 800 mg nurse reports he is coughing a lot he c/o generalized weakness Last Vital Signs Temp Pulse Resp BP Pulse Ox 97.2 F L 97 H 18 133/89 100 11/01/17 19:00 11/01/17 19:00 11/01/17 19:00 11/01/17 19:00 11/01/17 10:00 lungs diminished sounds, rare rhonchi abd soft nontender ext no edema CBC, BMP 11/01/17 06:25 11/01/17 06:25 IMP esrd on hd mssa bacteremia generalized weakness- may be getting better dry cough- used to have asthma, refused bronchodilator trial Plan hd in am
[2017-11-02] MEDS: SEVELAMER CARBONATE 800 MG TAB (FP) PO SCH ×3 (08:00→17:49)
--- NOTE | 2017-11-02 09:45 | PN ---
Progress Note, Physician Chief Complaint: receiving HD, no distress Denies CP or SOB today - Current Medication List Current Medications: Active Medications Acetaminophen (Tylenol -) 650 mg PO Q6H PRN PRN Reason: FEVER OR PAIN Aspirin (Ecotrin -) 81 mg PO DAILY [facility] Last Admin: 11/01/17 10:37 Dose: 81 mg Atorvastatin Calcium (Lipitor -) 20 mg PO HS [facility] Last Admin: 11/01/17 21:55 Dose: 20 mg Bacitracin (Bacitracin -) 1 applic TP BID [facility] Last Admin: 11/01/17 21:57 Dose: Not Given Folic Acid (Folic Acid -) 1 mg PO DAILY [facility] Last Admin: 11/01/17 10:37 Dose: 1 mg Guaifenesin (Diabetic Tussin Dm -) 5 ml PO Q4H PRN PRN Reason: COUGH Last Admin: 11/01/17 21:56 Dose: 5 ml Haloperidol (Haldol -) 5 mg PO DAILY [facility] Last Admin: 11/01/17 10:42 Dose: Not Given Rifampin (Rifadin -) 300 mg PO DAILY [facility] Last Admin: 11/01/17 10:37 Dose: 300 mg Sevelamer Carbonate (Renvela -) 800 mg PO TIDCM [facility] Last Admin: 11/02/17 08:00 Dose: 800 mg - Objective Vital Signs: Vital Signs Temperature 98.0 F 11/02/17 06:00 Pulse Rate 96 H 11/02/17 06:00 Respiratory Rate 18 11/02/17 06:00 Blood Pressure 150/97 11/02/17 06:00 O2 Sat by Pulse Oximetry (%) 100 11/01/17 10:00 Constitutional: Yes: Calm Eyes: Yes: Conjunctiva Clear Cardiovascular: Yes: Regular Rate and Rhythm Respiratory: Yes: CTA Bilaterally Gastrointestinal: Yes: Soft Edema: No Neurological: Yes: Alert, Oriented ...Motor Strength: WNL Labs: CBC, BMP 11/01/17 06:25 11/01/17 06:25 INR, PTT INR 1.27 (0.82-1.09) H 10/24/17 19:55 Microbiology 10/30/17 18:10 Stool Clostridium difficile Antigen (BREANNE) - Final NEGATIVE 10/30/17 18:10 Stool Clostridium difficile Toxin Assay - Final 10/25/17 21:00 Blood - Peripheral Venous Blood Culture - Final NO GROWTH AFTER 5 DAYS INCUBATION 10/25/17 19:30 Blood - Peripheral Venous Blood Culture - Final NO GROWTH AFTER 5 DAYS INCUBATION Laboratory Tests 10/24/17 11/01/17 11/01/17 21:50 06:25 06:25 WBC 6.6 Hgb 10.1 L D Plt Count 204 Potassium 4.7 Creatinine 5.4 H D Stool Occult Blood Negative Problem List - Problems (1) Abnormal ECG Code(s): R94.31 - ABNORMAL ELECTROCARDIOGRAM [ECG] [EKG] (2) ESRD (end stage renal disease) on dialysis Code(s): N18.6 - END STAGE RENAL DISEASE; Z99.2 - DEPENDENCE ON RENAL DIALYSIS (3) Symptomatic anemia Code(s): D64.9 - ANEMIA, UNSPECIFIED (4) Gram-positive bacteremia Code(s): R78.81 - BACTEREMIA Assessment/Plan Assessment/Plan - Problems (1) ESRD (end stage renal disease) on dialysis: anemia, diarrhea, recent bacteremia Assessment/Plan: -Regular HD as per renal -Guaiac negative; further w/u diarrhea as per PMD -C.diff negative, blood cultures negative Code(s): N18.6 - END STAGE RENAL DISEASE; Z99.2 - DEPENDENCE ON RENAL DIALYSIS (2) Hypertension Assessment/Plan: -Currently fairly well controlled Code(s): I10 - ESSENTIAL (PRIMARY) HYPERTENSION (3) Hypothyroid Assessment/Plan: -elevated TSH; f/u TFTs; f/u PMD Code(s): E03.9 - HYPOTHYROIDISM, UNSPECIFIED
--- NOTE | 2017-11-02 11:13 | DS ---
Physical Examination Vital Signs: Vital Signs Temperature 98.2 F 11/02/17 08:40 Pulse Rate 100 H 11/02/17 10:45 Respiratory Rate 18 11/02/17 10:45 Blood Pressure 106/60 11/02/17 10:45 O2 Sat by Pulse Oximetry (%) 100 11/01/17 10:00 Findings/Remarks: comfortable Wants to go home No new issues Patient wouldn't want to go to [facility] Constitutional: Yes: No Distress, Calm Neck: Yes: Supple Cardiovascular: Yes: Regular Rate and Rhythm Respiratory: Yes: CTA Bilaterally Gastrointestinal: Yes: Normal Bowel Sounds, Soft Edema: No Neurological: Yes: Alert Psychiatric: Yes: Alert Labs: CBC, BMP 11/01/17 06:25 11/01/17 06:25 Discharge Summary Reason For Visit: END STAGE RENAL FAILURE ON DIALYSIS, Current Active Problems Abnormal ECG (Acute) ESRD (end stage renal disease) on dialysis (Acute) Hyperlipidemia (Acute) Hypertension (Acute) Hypothyroid (Acute) Symptomatic anemia (Acute) Hospital Course: This is a 66 year old male with a past medical history of HTN, ESRD MWF, asthma , BPH who presented to the ED with low H/H as per assisted. Pt reports that he has been feeling weak ever since he was admitted to the assisted . He was recently admitted here 09/07-09/09 for MSSA bacterial endocarditis and transferred to tertiary care center for further treatment. patient has completed antibiotics. patient got transfused due to anemia Stool for occult blood was negative Anemia likely due to--- chronic disease No sign of any GI bleed--- anemia workup--- to be done as outpatient Patient EKG also showed junctional rhythm---cardiology consult was taken Holter--sinus rhythm Patient now stable Patient has outpatient dialysis set up Discharge today Patient to follow--in the clinic--for [facility] or his PMD Patient in agreement Medications reconciled Discussed with case operator also Discharge time 35 minutes, - Instructions Disposition: HOME - Home Medications Comprehensive Discharge Medication List: Ambulatory Orders Aspirin [Ecotrin] 81 mg PO DAILY #90 tablet. 03/25/15 Acetaminophen Suppository [Tylenol .Suppository -] 650 mg NC Q6H PRN #0 supp.rect 09/09/17 Atorvastatin Ca [Lipitor] 20 mg PO HS tablet 09/09/17 Haloperidol [Haldol -] 5 mg PO DAILY 10/24/17 Rifampin 300 mg PO DAILY 10/24/17 Sevelamer Carbonate 800 mg PO TID 10/24/17 Bacitracin - [Bacitracin Topical Ointment -] 1 applic TP BID 10/25/17 Folic Acid 1 mg PO DAILY 10/25/17 Folic Acid - 1 mg PO DAILY tablet 11/02/17
[2017-11-02] MEDS ORDERED: PT OWN MED DRAWER 7, Y5N ONE (12:25)
[2017-11-02] MEDS: HALOPERIDOL 5 MG TABLET (FP) PO SCH ×2 (12:28→12:31)
[2017-11-02] MEDS: RIFAMPIN 300 MG CAPSULE PO SCH (12:28)
[2017-11-02] MEDS: ASPIRIN COATED 81 MG TABLET.EC PO SCH (12:28)
[2017-11-02] MEDS: FOLIC ACID 1 MG TABLET (FP) PO SCH (12:28)
[2017-11-02] MEDS: BACITRACIN 15 GM TUBE TOPICAL OINTMENT TP SCH ×2 (12:29→21:47)
--- NOTE | 2017-11-02 12:44 | PN ---
Progress Note (short form) - Note Progress Note: Renal Follow up for ESRD on HD Pt seen and examined during dialysis pt without any acute complaints BP low 95/50's, goal UF with HD 1.4L access with good flow Vital Signs Temperature 98.2 F 11/02/17 12:20 Pulse Rate 82 11/02/17 12:30 Respiratory Rate 18 11/02/17 12:30 Blood Pressure 110/70 11/02/17 12:30 O2 Sat by Pulse Oximetry (%) 95 11/02/17 09:00 Intake & Output 10/30/17 10/31/17 11/01/17 11/02/17 23:59 23:59 23:59 23:59 Intake Total 815 400 775 350 Output Total 0 650 500 400 Balance 815 -250 275 -50 Weight 62.051 kg 63.639 kg NAD awake and alert No LE edema CBC, BMP 11/01/17 06:25 11/01/17 06:25 Current Medications Acetaminophen (Tylenol -) 650 mg PO Q6H PRN PRN Reason: FEVER OR PAIN Aspirin (Ecotrin -) 81 mg PO DAILY [facility] Last Admin: 11/02/17 12:28 Dose: 81 mg Atorvastatin Calcium (Lipitor -) 20 mg PO HS [facility] Last Admin: 11/01/17 21:55 Dose: 20 mg Bacitracin (Bacitracin -) 1 applic TP BID [facility] Last Admin: 11/02/17 12:29 Dose: Not Given Folic Acid (Folic Acid -) 1 mg PO DAILY [facility] Last Admin: 11/02/17 12:28 Dose: 1 mg Guaifenesin (Diabetic Tussin Dm -) 5 ml PO Q4H PRN PRN Reason: COUGH Last Admin: 11/01/17 21:56 Dose: 5 ml Haloperidol (Haldol -) 5 mg PO DAILY [facility] Last Admin: 11/02/17 12:31 Dose: Not Given Rifampin (Rifadin -) 300 mg PO DAILY [facility] Last Admin: 11/02/17 12:28 Dose: 300 mg Sevelamer Carbonate (Renvela -) 800 mg PO TIDCM [facility] Last Admin: 11/02/17 12:29 Dose: 800 mg 66 year old gentleman with PMhx of ESRD on HD (MWF at [facility]), Hypertension , Recent MSSA Bacteremia with suspected endocarditis who was sent into the ED from dialysis for low Hgb. Hgb has been in the 7's since hospital discharge but now it fell to 6.8 and pt was mildly hypotensive on dialysis. #ESRD on HD tolerating dialysis well today will continue on 3x weekly dialysis #Acute on Chronic Anemia in setting of CKD/Infection s/p transfusion Hgb stable continue DEMETRIS with HD #MSSA Bacteremia completed course of Abx no growth on repeat blood cultures #Diarrhea C-diff negative Aquiles Marie
[2017-11-02] MEDS: ATORVASTATIN CA 20 MG TABLET (FP) PO SCH (21:47)
[2017-11-03] MEDS ORDERED: PT OWN MED DRAWER 7, Y5N ONE (09:12)
[2017-11-03] MEDS: SEVELAMER CARBONATE 800 MG TAB (FP) PO SCH ×3 (09:18→20:37)
[2017-11-03] MEDS: FOLIC ACID 1 MG TABLET (FP) PO SCH (09:18)
[2017-11-03] MEDS: BACITRACIN 15 GM TUBE TOPICAL OINTMENT TP SCH ×2 (09:19→22:29)
[2017-11-03] MEDS: RIFAMPIN 300 MG CAPSULE PO SCH (09:19)
[2017-11-03] MEDS: ASPIRIN COATED 81 MG TABLET.EC PO SCH (09:19)
[2017-11-03] MEDS: HALOPERIDOL 5 MG TABLET (FP) PO SCH (09:19)
--- NOTE | 2017-11-03 10:37 | PN ---
Progress Note (short form) - Note Progress Note: patient's discharge was held yesterday--as patient noted to have very unsteady gait It was not safe discharge patient should go to rehabilitation Patient is not agreeing Reports he will be fine with walker Also tells me he used to walk with walker before Otherwise feels well and denies chest pain or shortness of breath Denies headache or dizziness Wants to go home--because stays otherwise will lose his apartment Explained to him that may not be good idea Vital Signs Temp 98.3 F 11/03/17 06:00 Pulse 104 H 11/03/17 06:00 Resp 20 11/03/17 06:00 BP 154/92 11/03/17 06:00 Pulse Ox 96 11/02/17 21:00 Intake & Output 11/02/17 11/02/17 11/03/17 11:59 23:59 11:59 Intake Total 350 850 0 Output Total 400 150 Balance -50 850 -150 Weight 140 lb 4.8 oz Intake: IVPB 0 Oral 350 850 Output: Urine 400 150 Void 400 150 Other: Voiding Method Urinal Urinal Bowel Movement No No Weight Measurement Method Standing Scale Active Medications Acetaminophen (Tylenol -) 650 mg PO Q6H PRN PRN Reason: FEVER OR PAIN Aspirin (Ecotrin -) 81 mg PO DAILY [facility] Last Admin: 11/03/17 09:19 Dose: 81 mg Atorvastatin Calcium (Lipitor -) 20 mg PO HS [facility] Last Admin: 11/02/17 21:47 Dose: 20 mg Bacitracin (Bacitracin -) 1 applic TP BID [facility] Last Admin: 11/03/17 09:19 Dose: Not Given Folic Acid (Folic Acid -) 1 mg PO DAILY [facility] Last Admin: 11/03/17 09:18 Dose: 1 mg Guaifenesin (Diabetic Tussin Dm -) 5 ml PO Q4H PRN PRN Reason: COUGH Last Admin: 11/01/17 21:56 Dose: 5 ml Haloperidol (Haldol -) 5 mg PO DAILY [facility] Last Admin: 11/03/17 09:19 Dose: 5 mg Rifampin (Rifadin -) 300 mg PO DAILY [facility] Last Admin: 11/03/17 09:19 Dose: 300 mg Sevelamer Carbonate (Renvela -) 800 mg PO TIDCM [facility] Last Admin: 12/28/17 09:18 Dose: 800 mg CBC, BMP 11/01/17 06:25 11/01/17 06:25 Physical Exam. Constitutional: Yes: No Distress, Calm. comfortable. Eyes: Yes: Conjunctiva Clear Neck: Yes: Supple/ no JVD Cardiovascular: Yes: Regular Rate and Rhythm Respiratory: Yes: CTA Bilaterally Gastrointestinal: Yes: Soft/ non tender Edema: No Neurological: Yes: Alert and awake. Moves all extremities--- non focal exam Cranial nerves all intact Psychiatric: Yes: Alert Assessment/Plan discussed with clinical social work aide as well as nursing staff physical therapy to evaluate We will try to convince patient to go to rehabilitation will follow. Problem List - Problems (1) Abnormal ECG Code(s): R94.31 - ABNORMAL ELECTROCARDIOGRAM [ECG] [EKG] (2) ESRD (end stage renal disease) on dialysis Code(s): N18.6 - END STAGE RENAL DISEASE; Z99.2 - DEPENDENCE ON RENAL DIALYSIS (3) Symptomatic anemia Code(s): D64.9 - ANEMIA, UNSPECIFIED
--- NOTE | 2017-11-03 11:24 | PN ---
Progress Note (short form) - Note Progress Note: Renal Follow up for ESRD on HD Pt seen and examined at the bedside awake and alert no acute complaints wants to be discharged home s/p dialysis yesterday Vital Signs Temperature 98.3 F 11/03/17 06:00 Pulse Rate 104 H 11/03/17 06:00 Respiratory Rate 20 11/03/17 06:00 Blood Pressure 154/92 11/03/17 06:00 O2 Sat by Pulse Oximetry (%) 96 11/02/17 21:00 Intake & Output 10/31/17 11/01/17 11/02/17 11/03/17 23:59 23:59 23:59 23:59 Intake Total 178 212 1029 0 Output Total 650 500 400 150 Balance -250 275 800 -150 Weight 63.639 kg NAD awake and alert No LE edema CBC, BMP 11/01/17 06:25 11/01/17 06:25 Current Medications Acetaminophen (Tylenol -) 650 mg PO Q6H PRN PRN Reason: FEVER OR PAIN Aspirin (Ecotrin -) 81 mg PO DAILY [facility] Last Admin: 11/03/17 09:19 Dose: 81 mg Atorvastatin Calcium (Lipitor -) 20 mg PO HS [facility] Last Admin: 11/02/17 21:47 Dose: 20 mg Bacitracin (Bacitracin -) 1 applic TP BID [facility] Last Admin: 11/03/17 09:19 Dose: Not Given Folic Acid (Folic Acid -) 1 mg PO DAILY [facility] Last Admin: 11/03/17 09:18 Dose: 1 mg Guaifenesin (Diabetic Tussin Dm -) 5 ml PO Q4H PRN PRN Reason: COUGH Last Admin: 11/01/17 21:56 Dose: 5 ml Haloperidol (Haldol -) 5 mg PO DAILY [facility] Last Admin: 11/03/17 09:19 Dose: 5 mg Rifampin (Rifadin -) 300 mg PO DAILY [facility] Last Admin: 11/03/17 09:19 Dose: 300 mg Sevelamer Carbonate (Renvela -) 800 mg PO TIDCM [facility] Last Admin: 11/03/17 09:18 Dose: 800 mg 66 year old gentleman with PMhx of ESRD on HD (MWF at [facility]), Hypertension , Recent MSSA Bacteremia with suspected endocarditis who was sent into the ED from dialysis for low Hgb. Hgb has been in the 7's since hospital discharge but now it fell to 6.8 and pt was mildly hypotensive on dialysis. #ESRD on HD no acute indication for LANDSCAPER next dialysis is planned for tomorrow #Acute on Chronic Anemia in setting of CKD/Infection s/p transfusion Hgb stable continue DEMETRIS with HD #MSSA Bacteremia completed course of Abx no growth on repeat blood cultures #Diarrhea C-diff negative Discharge planning PT eval again today Aquiles Marie
--- NOTE | 2017-11-03 11:26 | PN ---
Progress Note, Physician History of Present Illness: seen and examined today in nad. no overnight events. no new complaints. pt states that he wants to go home. - Current Medication List Current Medications: Active Medications Acetaminophen (Tylenol -) 650 mg PO Q6H PRN PRN Reason: FEVER OR PAIN Aspirin (Ecotrin -) 81 mg PO DAILY [facility] Last Admin: 11/03/17 09:19 Dose: 81 mg Atorvastatin Calcium (Lipitor -) 20 mg PO HS [facility] Last Admin: 11/02/17 21:47 Dose: 20 mg Bacitracin (Bacitracin -) 1 applic TP BID [facility] Last Admin: 11/03/17 09:19 Dose: Not Given Folic Acid (Folic Acid -) 1 mg PO DAILY [facility] Last Admin: 11/03/17 09:18 Dose: 1 mg Guaifenesin (Diabetic Tussin Dm -) 5 ml PO Q4H PRN PRN Reason: COUGH Last Admin: 11/01/17 21:56 Dose: 5 ml Haloperidol (Haldol -) 5 mg PO DAILY [facility] Last Admin: 11/03/17 09:19 Dose: 5 mg Rifampin (Rifadin -) 300 mg PO DAILY [facility] Last Admin: 11/03/17 09:19 Dose: 300 mg Sevelamer Carbonate (Renvela -) 800 mg PO TIDCM [facility] Last Admin: 11/03/17 09:18 Dose: 800 mg - Objective Vital Signs: Vital Signs Temperature 98.3 F 11/03/17 06:00 Pulse Rate 104 H 11/03/17 06:00 Respiratory Rate 20 11/03/17 06:00 Blood Pressure 154/92 11/03/17 06:00 O2 Sat by Pulse Oximetry (%) 96 11/02/17 21:00 Constitutional: Yes: No Distress, Calm Eyes: Yes: Conjunctiva Clear, EOM Intact, PERRL HENT: Yes: Atraumatic, Normocephalic Neck: Yes: Supple, Trachea Midline Cardiovascular: Yes: Regular Rate and Rhythm, S1, S2. No: Bradycardia, Tachycardia, Pulse Irregular, Bruit, JVD, Gallop, Murmur, Rub, S3, S4, Varicosities Respiratory: Yes: Regular. No: Rales, Rhonchi, SOB, Wheezes Gastrointestinal: Yes: Normal Bowel Sounds, Soft Edema: No Neurological: Yes: Alert, Oriented Psychiatric: Yes: Alert, Oriented Labs: CBC, BMP 11/01/17 06:25 11/01/17 06:25 INR, PTT INR 1.27 (0.82-1.09) H 10/24/17 19:55 - ....Imaging Chest X-ray: Report Reviewed, Image Reviewed EKG: Report Reviewed, Image Reviewed Other: Report Reviewed, Image Reviewed Assessment/Plan 67 year old man h/o ESRD on HD, chronic anemia, HTN, recent MSSA bacteremia with suspected endocarditis, recent admission at [facility] BALTA showed no vegetation a/w symptomatic anemia. Abnormal ECG -initial concern on admission was for junctional rhythm but Holter showed NSR, 1st degree AVB, no junctional rhythm -normal LV systolic function on echo -no additional inpatient cardiac work up needed at this brian Symptomatic anemia -anemia improved and H/H stable Gram-positive bacteremia -Recent BALTA at [facility] reportedly showed no vegetation -blood cultures here no growth -Surveillance cx and IV abx at HD as planned HTN-variable but overall adequately controlled -not currently on medical therapy
[2017-11-03] MEDS: ATORVASTATIN CA 20 MG TABLET (FP) PO SCH (22:28)
[2017-11-04] MEDS: SEVELAMER CARBONATE 800 MG TAB (FP) PO SCH ×3 (07:39→19:17)
[2017-11-04] MEDS ORDERED: EPOETIN ALFA 10,000 UNIT/1 ML VIAL IVPUSH ONE ×2 (08:15→11:00)
[2017-11-04 09:54] LABS: HEMATOCRIT 25.3 % (35.4-49); HEMOGLOBIN 8.2 GM/dL (11.7-16.9); MCH 28.7 pg (25.7-33.7); MCHC 32.3 g/dl (32.0-35.9); MEAN CELL VOLUME 88.8 fl (80-96); MEAN PLT VOLUME 7.6 fl (7.5-11.1); PLATELET COUNT 206 K/MM3 (134-434); RBC 2.85 M/mm3 (4.00-5.60); RDW 16.4 % (11.9-15.9); WHITE BLOOD COUNT 6.2 K/mm3 (4.0-10.0)
--- NOTE | 2017-11-04 10:09 | PN ---
Progress Note (short form) - Note Progress Note: patient seen and examined today in dialysis Discussed with nursing staff also Patient did not cooperate with physical therapy yesterday and was agitated Today patient is calm No complaints Vital Signs Temp 98.2 F 11/04/17 08:10 Pulse 98 H 11/04/17 08:15 Resp 18 11/04/17 08:15 BP 142/84 11/04/17 08:15 Pulse Ox 96 11/03/17 21:00 Intake & Output 11/03/17 11/03/17 11/04/17 11:59 23:59 11:59 Intake Total 0 720 400 Output Total 150 100 100 Balance -150 620 300 Weight 141 lb 14.4 oz Intake: IVPB 0 Oral 720 400 Output: Urine 150 100 100 Void 150 100 100 Other: Voiding Method Urinal Urinal Toilet # Unmeasured Voids Void 1 Bowel Movement No Yes: large # Bowel Movements 1 Weight Measurement Method Standing Scale Active Medications Acetaminophen (Tylenol -) 650 mg PO Q6H PRN PRN Reason: FEVER OR PAIN Aspirin (Ecotrin -) 81 mg PO DAILY [facility] Last Admin: 11/03/17 09:19 Dose: 81 mg Atorvastatin Calcium (Lipitor -) 20 mg PO HS [facility] Last Admin: 11/03/17 22:28 Dose: 20 mg Bacitracin (Bacitracin -) 1 applic TP BID [facility] Last Admin: 11/03/17 22:29 Dose: Not Given Folic Acid (Folic Acid -) 1 mg PO DAILY [facility] Last Admin: 11/03/17 09:18 Dose: 1 mg Guaifenesin (Diabetic Tussin Dm -) 5 ml PO Q4H PRN PRN Reason: COUGH Last Admin: 11/01/17 21:56 Dose: 5 ml Haloperidol (Haldol -) 5 mg PO DAILY [facility] Last Admin: 11/03/17 09:19 Dose: 5 mg Rifampin (Rifadin -) 300 mg PO DAILY [facility] Last Admin: 11/03/17 09:19 Dose: 300 mg Sevelamer Carbonate (Renvela -) 800 mg PO TIDCM [facility] Last Admin: 11/04/17 07:39 Dose: 800 mg CBC, BMP 11/04/17 07:15 Physical Exam. Constitutional: Yes: No Distress, Calm. Eyes: Yes: Conjunctiva Clear Neck: Yes: Supple/ no JVD Cardiovascular: Yes: Regular Rate and Rhythm Respiratory: Yes: CTA Bilaterally Gastrointestinal: Yes: Soft/ non tender Edema: No Neurological: Yes: Alert and awake. Moves all extremities--- non focal exam Cranial nerves all intact Psychiatric: Yes: Alert Assessment/Plan discussed with social contact worker as well as nursing staff patient is very unsteady Discussed with patient Physical therapy Will consult psych also-- for mood as well as for capacity I believe patient does have capacity Will follow Problem List - Problems (1) Abnormal ECG Code(s): R94.31 - ABNORMAL ELECTROCARDIOGRAM [ECG] [EKG] (2) ESRD (end stage renal disease) on dialysis Code(s): N18.6 - END STAGE RENAL DISEASE; Z99.2 - DEPENDENCE ON RENAL DIALYSIS (3) Symptomatic anemia Code(s): D64.9 - ANEMIA, UNSPECIFIED
[2017-11-04 10:20] LABS: ANION GAP 10 (8-16); BLOOD UREA NITROGEN 64 mg/dL (7-18); CALCIUM 9.5 mg/dL (8.5-10.1); CHLORIDE 100 mmol/L (98-107); CO2 28 mmol/L (21-32); CREATININE 5.7 mg/dL (0.7-1.3); GLUCOSE,RANDOM 111 mg/dL (74-106); PHOSPHOROUS 4.6 mg/dL (2.5-4.9); POTASSIUM 4.3 mmol/L (3.5-5.1); SODIUM 138 mmol/L (136-145)
[2017-11-04] MEDS: BACITRACIN 15 GM TUBE TOPICAL OINTMENT TP SCH (11:52)
--- NOTE | 2017-11-04 11:55 | PN ---
Progress Note (short form) - Note Progress Note: Renal Follow up for ESRD on HD Pt seen and examined during dialysis BP 99/50's goal UF is 1.5L pt without complaints no chest pain, sob, fever, abd pain, N/V/D Vital Signs Temperature 98.2 F 11/04/17 08:10 Pulse Rate 90 11/04/17 09:45 Respiratory Rate 18 11/04/17 09:45 Blood Pressure 120/89 11/04/17 09:45 O2 Sat by Pulse Oximetry (%) 96 11/03/17 21:00 Intake & Output 11/01/17 11/02/17 11/03/17 11/04/17 23:59 23:59 23:59 23:59 Intake Total 775 1200 720 400 Output Total 500 400 250 100 Balance 275 800 470 300 Weight 63.639 kg 64.365 kg NAD awake and alert No LE edema CBC, BMP 11/04/17 07:15 11/04/17 07:15 Current Medications Acetaminophen (Tylenol -) 650 mg PO Q6H PRN PRN Reason: FEVER OR PAIN Aspirin (Ecotrin -) 81 mg PO DAILY [facility] Last Admin: 11/03/17 09:19 Dose: 81 mg Atorvastatin Calcium (Lipitor -) 20 mg PO HS [facility] Last Admin: 11/03/17 22:28 Dose: 20 mg Bacitracin (Bacitracin -) 1 applic TP BID [facility] Last Admin: 11/03/17 22:29 Dose: Not Given Folic Acid (Folic Acid -) 1 mg PO DAILY [facility] Last Admin: 11/03/17 09:18 Dose: 1 mg Guaifenesin (Diabetic Tussin Dm -) 5 ml PO Q4H PRN PRN Reason: COUGH Last Admin: 11/01/17 21:56 Dose: 5 ml Haloperidol (Haldol -) 5 mg PO DAILY [facility] Last Admin: 11/03/17 09:19 Dose: 5 mg Rifampin (Rifadin -) 300 mg PO DAILY [facility] Last Admin: 11/03/17 09:19 Dose: 300 mg Sevelamer Carbonate (Renvela -) 800 mg PO TIDCM [facility] Last Admin: 11/04/17 07:39 Dose: 800 mg 66 year old gentleman with PMhx of ESRD on HD (MWF at [facility]), Hypertension , Recent MSSA Bacteremia with suspected endocarditis who was sent into the ED from dialysis for low Hgb. Hgb has been in the 7's since hospital discharge but now it fell to 6.8 and pt was mildly hypotensive on dialysis. #ESRD on HD tolerating dialysis UF as tolerated continue 3x weekly HD #Acute on Chronic Anemia in setting of CKD/Infection s/p transfusion Hgb stable continue DEMETRIS with HD #MSSA Bacteremia completed course of Abx no growth on repeat blood cultures #Diarrhea C-diff negative Discharge planning [facility]
[2017-11-04] MEDS: HALOPERIDOL 5 MG TABLET (FP) PO SCH (12:57)
[2017-11-04] MEDS: FOLIC ACID 1 MG TABLET (FP) PO SCH (12:57)
[2017-11-04] MEDS: ASPIRIN COATED 81 MG TABLET.EC PO SCH (12:57)
[2017-11-04] MEDS: RIFAMPIN 300 MG CAPSULE PO SCH (12:58)
--- NOTE | 2017-11-04 17:33 | CON.PSY ---
Psychiatry Consult Chief Complaint: 67 year old male admitted from [facility]. Has multiple chronic medical conditions. apparantly refusing to go back to [facility]. Wants to go home. Patient is quite aware of his surroungings and response to questins appropriely but in a very measured way. Refusing any dose increse or any new Psych meds. Symptoms: reports: Oppositionalism - Previous Psychiatric Treatment Outpatient: Less than 6 mos ago Inpatient: None - Reason for Previous Treatment Reason for Previous Treatment: Psychotic Episode - Current Medications Current Medications: Active Medications Acetaminophen (Tylenol -) 650 mg PO Q6H PRN PRN Reason: FEVER OR PAIN Aspirin (Ecotrin -) 81 mg PO DAILY [facility] Last Admin: 11/04/17 12:57 Dose: 81 mg Atorvastatin Calcium (Lipitor -) 20 mg PO HS [facility] Last Admin: 11/03/17 22:28 Dose: 20 mg Bacitracin (Bacitracin -) 1 applic TP BID [facility] Last Admin: 11/04/17 11:52 Dose: Not Given Folic Acid (Folic Acid -) 1 mg PO DAILY [facility] Last Admin: 11/04/17 12:57 Dose: 1 mg Guaifenesin (Diabetic Tussin Dm -) 5 ml PO Q4H PRN PRN Reason: COUGH Last Admin: 11/01/17 21:56 Dose: 5 ml Haloperidol (Haldol -) 5 mg PO DAILY [facility] Last Admin: 11/04/17 12:57 Dose: 5 mg Rifampin (Rifadin -) 300 mg PO DAILY [facility] Last Admin: 11/04/17 12:58 Dose: 300 mg Sevelamer Carbonate (Renvela -) 800 mg PO TIDCM [facility] Last Admin: 11/04/17 12:57 Dose: 800 mg - Allergies Allergies: Allergies Allergy/AdvReac Type Severity Reaction Status Date / Time No Known Drug Allergies Allergy Verified 10/24/17 18:54 - Current Living Status Usual Living Arrangement: [facility] - Current Mental Status Evaluation Appearance: Well Groomed Attitude: Guarded - Affect Affect: Full Range Appropriateness: Appropriate to Content - Mood Mood: Euthymic - Speech/Language Expressive: Coherent - Psychomotor Activity Psychomotor Activity: Normal - Thought Process Thought Process: Intact - Thought Content Hallucinations: Absent Delusions: Absent - Self Perception Self Perception: No Impairment - Cognition Attention: Alert Orientation: Time Memory, Immediate Recall: Intact Memory, Short Term: 3/3 Memory, Remote with Promptin/3 - Concentration Serial Sevens Intact: No Simple Calculations Intact: No - Abstraction Proverb Interpretation: Intact Judgement: Minimally Impaired - Insight Insight: Intact - Impulse Control Impulse Control: Minimally Impaired - Suicidal Ideation Suicidal Ideation: No - Homicidal Ideation Homicidal Ideation: No Assessment/Plan 1) Patient has the functional capacity to make informed decisions at tyhis time. 2) Would like to increse Haldol 5mg po BID but patient is refusing.
[2017-11-05] MEDS: ATORVASTATIN CA 20 MG TABLET (FP) PO SCH ×2 (00:43→21:24)
[2017-11-05] MEDS: BACITRACIN 15 GM TUBE TOPICAL OINTMENT TP SCH ×3 (06:37→21:24)
[2017-11-05] MEDS: SEVELAMER CARBONATE 800 MG TAB (FP) PO SCH ×3 (08:36→17:45)
[2017-11-05] MEDS ORDERED: PT OWN MED DRAWER 7, Y5N ONE (10:05)
[2017-11-05] MEDS: FOLIC ACID 1 MG TABLET (FP) PO SCH (10:11)
[2017-11-05] MEDS: ASPIRIN COATED 81 MG TABLET.EC PO SCH (10:11)
[2017-11-05] MEDS: HALOPERIDOL 5 MG TABLET (FP) PO SCH (10:11)
[2017-11-05] MEDS: RIFAMPIN 300 MG CAPSULE PO SCH (10:11)
[2017-11-05] MEDS: guaiFENesin/D-M SUGAR-FREE/ACLHOL-FREE 118 ML BOTTLE PO PRN (10:13)
--- NOTE | 2017-11-05 11:10 | PN ---
Progress Note (short form) - Note Progress Note: Renal Follow up for ESRD on HD Pt seen and examined at the bedside no acute complaints Vital Signs Temperature 97.9 F 11/05/17 06:00 Pulse Rate 92 H 11/05/17 06:00 Respiratory Rate 20 11/05/17 06:00 Blood Pressure 167/101 11/05/17 06:00 O2 Sat by Pulse Oximetry (%) 98 11/04/17 21:00 Intake & Output 11/02/17 11/03/17 11/04/17 11/05/17 23:59 23:59 23:59 23:59 Intake Total 2949 110 2310 Output Total 400 250 100 Balance 509 341 4410 Weight 63.639 kg 64.365 kg NAD awake and alert No LE edema CBC, BMP 11/04/17 07:15 11/04/17 07:15 Current Medications Acetaminophen (Tylenol -) 650 mg PO Q6H PRN PRN Reason: FEVER OR PAIN Aspirin (Ecotrin -) 81 mg PO DAILY [facility] Last Admin: 11/05/17 10:11 Dose: 81 mg Atorvastatin Calcium (Lipitor -) 20 mg PO HS [facility] Last Admin: 11/05/17 00:43 Dose: 20 mg Bacitracin (Bacitracin -) 1 applic TP BID [facility] Last Admin: 11/05/17 10:11 Dose: Not Given Folic Acid (Folic Acid -) 1 mg PO DAILY [facility] Last Admin: 11/05/17 10:11 Dose: 1 mg Guaifenesin (Diabetic Tussin Dm -) 5 ml PO Q4H PRN PRN Reason: COUGH Last Admin: 11/05/17 10:13 Dose: 5 ml Haloperidol (Haldol -) 5 mg PO DAILY [facility] Last Admin: 11/05/17 10:11 Dose: 5 mg Rifampin (Rifadin -) 300 mg PO DAILY [facility] Last Admin: 11/05/17 10:11 Dose: 300 mg Sevelamer Carbonate (Renvela -) 800 mg PO TIDCM [facility] Last Admin: 11/05/17 08:36 Dose: 800 mg 66 year old gentleman with PMhx of ESRD on HD (MWF at [facility]), Hypertension , Recent MSSA Bacteremia with suspected endocarditis who was sent into the ED from dialysis for low Hgb. Hgb has been in the 7's since hospital discharge but now it fell to 6.8 and pt was mildly hypotensive on dialysis. #ESRD on HD next dialysis is planned for tomorrow #Acute on Chronic Anemia in setting of CKD/Infection Continue DEMETRIS with HD #MSSA Bacteremia completed course of Abx no growth on repeat blood cultures #Diarrhea C-diff negative Discharge planning pending pts ability to ambulate [facility]
--- NOTE | 2017-11-05 11:35 | PN ---
Progress Note (short form) - Note Progress Note: pt seen/ examined comfortable no complains wants to go home only discussed again. psych consult noted- appreciated-- pt has capacity Vital Signs Temp 97.9 F 11/05/17 06:00 Pulse 92 H 11/05/17 06:00 Resp 20 11/05/17 06:00 BP 167/101 11/05/17 06:00 Pulse Ox 98 11/04/17 21:00 Intake & Output 11/04/17 11/04/17 11/05/17 11:59 23:59 11:59 Intake Total 400 760 Output Total 100 Balance 300 760 Weight 141 lb 14.4 oz Intake: Oral 400 760 Output: Urine 100 Void 100 Other: Voiding Method Toilet Urinal # Unmeasured Voids Void 2 Bowel Movement No No Weight Measurement Method Standing Scale Active Medications Acetaminophen (Tylenol -) 650 mg PO Q6H PRN PRN Reason: FEVER OR PAIN Aspirin (Ecotrin -) 81 mg PO DAILY [facility] Last Admin: 11/05/17 10:11 Dose: 81 mg Atorvastatin Calcium (Lipitor -) 20 mg PO HS [facility] Last Admin: 11/05/17 00:43 Dose: 20 mg Bacitracin (Bacitracin -) 1 applic TP BID [facility] Last Admin: 11/05/17 10:11 Dose: Not Given Epoetin Chucky (Epogen -) 20,000 units IVPUSH ONCE ONE Stop: 11/06/17 06:01 Folic Acid (Folic Acid -) 1 mg PO DAILY [facility] Last Admin: 11/05/17 10:11 Dose: 1 mg Guaifenesin (Diabetic Tussin Dm -) 5 ml PO Q4H PRN PRN Reason: COUGH Last Admin: 11/05/17 10:13 Dose: 5 ml Haloperidol (Haldol -) 5 mg PO DAILY [facility] Last Admin: 11/05/17 10:11 Dose: 5 mg Rifampin (Rifadin -) 300 mg PO DAILY [facility] Last Admin: 11/05/17 10:11 Dose: 300 mg Sevelamer Carbonate (Renvela -) 800 mg PO TIDCM [facility] Last Admin: 11/05/17 08:36 Dose: 800 mg CBC, BMP 11/04/17 07:15 11/04/17 07:15 Physical Exam. Constitutional: Yes: No Distress, comfortable Eyes: Yes: Conjunctiva Clear Neck: Yes: Supple/ no JVD Cardiovascular: Yes: Regular Rate and Rhythm Respiratory: Yes: CTA Bilaterally Gastrointestinal: Yes: Soft/ non tender Edema: No Neurological: Yes: Alert and awake. Moves all extremities--- non focal exam Cranial nerves all intact Psychiatric: Yes: Alert Assessment/Plan patient is very unsteady high risk of fall-- pt aware social working on safe discharge Discussed with patient Physical therapy will follow. Problem List - Problems (1) Abnormal ECG Code(s): R94.31 - ABNORMAL ELECTROCARDIOGRAM [ECG] [EKG] (2) ESRD (end stage renal disease) on dialysis Code(s): N18.6 - END STAGE RENAL DISEASE; Z99.2 - DEPENDENCE ON RENAL DIALYSIS (3) Symptomatic anemia Code(s): D64.9 - ANEMIA, UNSPECIFIED
[2017-11-06] MEDS: SEVELAMER CARBONATE 800 MG TAB (FP) PO SCH ×3 (07:49→16:59)
[2017-11-06] MEDS ORDERED: EPOETIN ALFA 20,000 UNIT/1 ML VIAL IVPUSH ONE (08:00)
[2017-11-06 08:36] LABS: HEMATOCRIT 26.9 % (35.4-49); HEMOGLOBIN 8.6 GM/dL (11.7-16.9); MCH 28.2 pg (25.7-33.7); MCHC 31.9 g/dl (32.0-35.9); MEAN CELL VOLUME 88.2 fl (80-96); MEAN PLT VOLUME 7.4 fl (7.5-11.1); PLATELET COUNT 222 K/MM3 (134-434); RBC 3.05 M/mm3 (4.00-5.60); RDW 16.4 % (11.9-15.9); WHITE BLOOD COUNT 5.7 K/mm3 (4.0-10.0)
[2017-11-06 09:18] LABS: ANION GAP 10 (8-16); BLOOD UREA NITROGEN 58 mg/dL (7-18); CALCIUM 9.3 mg/dL (8.5-10.1); CHLORIDE 100 mmol/L (98-107); CO2 27 mmol/L (21-32); CREATININE 5.7 mg/dL (0.7-1.3); GLUCOSE,RANDOM 135 mg/dL (74-106); PHOSPHOROUS 4.3 mg/dL (2.5-4.9); POTASSIUM 4.1 mmol/L (3.5-5.1); SODIUM 137 mmol/L (136-145)
--- NOTE | 2017-11-06 09:31 | PN ---
Progress Note (short form) - Note Progress Note: Renal Follow up for ESRD on HD Pt seen and examined during dialysis BP stable UF goal ~1.5L pt w/o complaints requests tx time to be reduced to 3 hrs no sob, chest pain Vital Signs Temperature 98.5 F 11/06/17 07:55 Pulse Rate 104 H 11/06/17 09:00 Respiratory Rate 18 11/06/17 09:00 Blood Pressure 124/83 11/06/17 09:00 O2 Sat by Pulse Oximetry (%) 96 11/05/17 21:00 Intake & Output 11/03/17 11/04/17 11/05/17 11/06/17 23:59 23:59 23:59 23:59 Intake Total 720 1160 740 200 Output Total 250 100 300 200 Balance 470 1060 440 0 Weight 64.365 kg 64.892 kg NAD awake and alert No LE edema CBC, BMP 11/06/17 08:30 11/06/17 08:30 Current Medications Acetaminophen (Tylenol -) 650 mg PO Q6H PRN PRN Reason: FEVER OR PAIN Aspirin (Ecotrin -) 81 mg PO DAILY [facility] Last Admin: 11/05/17 10:11 Dose: 81 mg Atorvastatin Calcium (Lipitor -) 20 mg PO HS [facility] Last Admin: 11/05/17 21:24 Dose: 20 mg Bacitracin (Bacitracin -) 1 applic TP BID [facility] Last Admin: 11/05/17 21:24 Dose: Not Given Folic Acid (Folic Acid -) 1 mg PO DAILY [facility] Last Admin: 11/05/17 10:11 Dose: 1 mg Guaifenesin (Diabetic Tussin Dm -) 5 ml PO Q4H PRN PRN Reason: COUGH Last Admin: 11/05/17 10:13 Dose: 5 ml Haloperidol (Haldol -) 5 mg PO DAILY [facility] Last Admin: 11/05/17 10:11 Dose: 5 mg Rifampin (Rifadin -) 300 mg PO DAILY [facility] Last Admin: 11/05/17 10:11 Dose: 300 mg Sevelamer Carbonate (Renvela -) 800 mg PO TIDCM [facility] Last Admin: 11/06/17 07:49 Dose: 800 mg 66 year old gentleman with PMhx of ESRD on HD (MWF at [facility]), Hypertension , Recent MSSA Bacteremia with suspected endocarditis who was sent into the ED from dialysis for low Hgb. Hgb has been in the 7's since hospital discharge but now it fell to 6.8 and pt was mildly hypotensive on dialysis. #ESRD on HD tolerating dialysis well UF goal ~1.5L continue 3x weekly dialysis outpatient dialysis to be arranged at [facility] dialysis or [facility] pt does not want to go back to [facility] #Acute on Chronic Anemia in setting of CKD/Infection Continue DEMETRIS with HD #MSSA Bacteremia completed course of Abx no growth on repeat blood cultures #Diarrhea C-diff negative [facility]
[2017-11-06] MEDS ORDERED: PT OWN MED DRAWER 7, Y5N ONE ×2 (11:13→16:58)
[2017-11-06] MEDS: FOLIC ACID 1 MG TABLET (FP) PO SCH (11:23)
[2017-11-06] MEDS: ASPIRIN COATED 81 MG TABLET.EC PO SCH (11:23)
[2017-11-06] MEDS: BACITRACIN 15 GM TUBE TOPICAL OINTMENT TP SCH ×2 (11:23→21:43)
[2017-11-06] MEDS: HALOPERIDOL 5 MG TABLET (FP) PO SCH (11:24)
[2017-11-06] MEDS: RIFAMPIN 300 MG CAPSULE PO SCH (11:24)
[2017-11-06] MEDS: guaiFENesin/D-M SUGAR-FREE/ACLHOL-FREE 118 ML BOTTLE PO PRN ×2 (11:24→17:00)
--- NOTE | 2017-11-06 12:53 | PN ---
Progress Note (short form) - Note Progress Note: unable to go home as out pt dialysis not set up discharge was held pt comfortable no complains feels well Vital Signs Temp 98.5 F 11/06/17 07:55 Pulse 91 H 11/06/17 10:50 Resp 18 11/06/17 10:50 BP 118/67 11/06/17 10:50 Pulse Ox 96 11/05/17 21:00 Intake & Output 11/05/17 11/06/17 11/06/17 23:59 11:59 23:59 Intake Total 740 200 Output Total 300 200 Balance 440 0 Weight 143 lb 1 oz Intake: Oral 740 200 Output: Urine 300 200 Void 300 200 Other: Voiding Method Urinal # Unmeasured Voids Void 2 Bowel Movement Yes No Weight Measurement Method Standing Scale Active Medications Acetaminophen (Tylenol -) 650 mg PO Q6H PRN PRN Reason: FEVER OR PAIN Aspirin (Ecotrin -) 81 mg PO DAILY [facility] Last Admin: 11/06/17 11:23 Dose: 81 mg Atorvastatin Calcium (Lipitor -) 20 mg PO HS [facility] Last Admin: 11/05/17 21:24 Dose: 20 mg Bacitracin (Bacitracin -) 1 applic TP BID [facility] Last Admin: 11/06/17 11:23 Dose: Not Given Folic Acid (Folic Acid -) 1 mg PO DAILY [facility] Last Admin: 11/06/17 11:23 Dose: 1 mg Guaifenesin (Diabetic Tussin Dm -) 5 ml PO Q4H PRN PRN Reason: COUGH Last Admin: 11/06/17 11:24 Dose: 5 ml Haloperidol (Haldol -) 5 mg PO DAILY [facility] Last Admin: 11/06/17 11:24 Dose: 5 mg Rifampin (Rifadin -) 300 mg PO DAILY [facility] Last Admin: 11/06/17 11:24 Dose: 300 mg Sevelamer Carbonate (Renvela -) 800 mg PO TIDCM [facility] Last Admin: 11/06/17 12:06 Dose: 800 mg CBC, BMP 11/06/17 08:30 11/06/17 08:30 Physical Exam. Constitutional: Yes: No Distress, comfortable Eyes: Yes: Conjunctiva Clear Neck: Yes: Supple/ no JVD Cardiovascular: Yes: Regular Rate and Rhythm Respiratory: Yes: CTA Bilaterally Gastrointestinal: Yes: Soft/ non tender Edema: No Neurological: Yes: Alert and awake. Moves all extremities--- non focal exam Cranial nerves all intact Psychiatric: Yes: Alert Assessment/Plan stable same treatment social working on safe discharge Discussed with patient Physical therapy discharge when out pt dialysis set up. discussed with nursing staff also. Problem List - Problems (1) Abnormal ECG Code(s): R94.31 - ABNORMAL ELECTROCARDIOGRAM [ECG] [EKG] (2) ESRD (end stage renal disease) on dialysis Code(s): N18.6 - END STAGE RENAL DISEASE; Z99.2 - DEPENDENCE ON RENAL DIALYSIS (3) Symptomatic anemia Code(s): D64.9 - ANEMIA, UNSPECIFIED
[2017-11-06] MEDS: ATORVASTATIN CA 20 MG TABLET (FP) PO SCH (21:42)
[2017-11-07] MEDS: guaiFENesin/D-M SUGAR-FREE/ACLHOL-FREE 118 ML BOTTLE PO PRN ×3 (07:29→21:32)
[2017-11-07] MEDS: SEVELAMER CARBONATE 800 MG TAB (FP) PO SCH ×3 (08:00→18:29)
[2017-11-07] MEDS: BACITRACIN 15 GM TUBE TOPICAL OINTMENT TP SCH ×2 (09:27→21:32)
[2017-11-07] MEDS: FOLIC ACID 1 MG TABLET (FP) PO SCH (09:28)
[2017-11-07] MEDS: ASPIRIN COATED 81 MG TABLET.EC PO SCH (09:28)
--- NOTE | 2017-11-07 10:13 | PN ---
Progress Note (short form) - Note Progress Note: Renal Follow up for ESRD on HD Pt seen and examined at the bedside awake and alert no acute complaints Vital Signs Temperature 97.8 F 11/07/17 06:01 Pulse Rate 97 H 11/07/17 06:01 Respiratory Rate 18 11/07/17 06:01 Blood Pressure 149/100 11/07/17 06:01 O2 Sat by Pulse Oximetry (%) 100 11/06/17 21:00 Intake & Output 11/04/17 11/05/17 11/06/17 11/07/17 23:59 23:59 23:59 23:59 Intake Total 3826 168 4879 200 Output Total 100 300 650 100 Balance 1060 440 660 100 Weight 64.365 kg 64.892 kg 62.868 kg NAD awake and alert No LE edema CBC, BMP 11/06/17 08:30 11/06/17 08:30 Current Medications Acetaminophen (Tylenol -) 650 mg PO Q6H PRN PRN Reason: FEVER OR PAIN Aspirin (Ecotrin -) 81 mg PO DAILY [facility] Last Admin: 11/07/17 09:28 Dose: 81 mg Atorvastatin Calcium (Lipitor -) 20 mg PO HS [facility] Last Admin: 11/06/17 21:42 Dose: 20 mg Bacitracin (Bacitracin -) 1 applic TP BID [facility] Last Admin: 11/07/17 09:27 Dose: Not Given Folic Acid (Folic Acid -) 1 mg PO DAILY [facility] Last Admin: 11/07/17 09:28 Dose: 1 mg Guaifenesin (Diabetic Tussin Dm -) 5 ml PO Q4H PRN PRN Reason: COUGH Last Admin: 11/07/17 07:29 Dose: 5 ml Haloperidol (Haldol -) 5 mg PO DAILY [facility] Last Admin: 11/06/17 11:24 Dose: 5 mg Rifampin (Rifadin -) 300 mg PO DAILY [facility] Last Admin: 11/06/17 11:24 Dose: 300 mg Sevelamer Carbonate (Renvela -) 800 mg PO TIDCM [facility] Last Admin: 11/07/17 08:00 Dose: 800 mg 66 year old gentleman with PMhx of ESRD on HD (MWF at [facility]), Hypertension , Recent MSSA Bacteremia with suspected endocarditis who was sent into the ED from dialysis for low Hgb. Hgb has been in the 7's since hospital discharge but now it fell to 6.8 and pt was mildly hypotensive on dialysis. #ESRD on HD no acute indication for dialysis today outpatient dialysis placement pending #Acute on Chronic Anemia in setting of CKD/Infection Continue DEMETRIS with HD #MSSA Bacteremia completed course of Abx no growth on repeat blood cultures #Diarrhea C-diff negative discharge planning [facility]
[2017-11-07] MEDS ORDERED: PT OWN MED DRAWER 7, Y5N ONE (12:11)
[2017-11-07] MEDS: RIFAMPIN 300 MG CAPSULE PO SCH (12:13)
[2017-11-07] MEDS: HALOPERIDOL 5 MG TABLET (FP) PO SCH (12:13)
--- NOTE | 2017-11-07 14:54 | PN ---
Progress Note (short form) - Note Progress Note: comfortable unable to go home as out pt dialysis not set up discharge was held no complains Vital Signs Temp 98.7 F 11/07/17 10:00 Pulse 94 H 11/07/17 10:00 Resp 20 11/07/17 10:00 BP 149/99 11/07/17 10:00 Pulse Ox 100 11/06/17 21:00 Intake & Output 11/06/17 11/07/17 11/07/17 23:59 11:59 23:59 Intake Total 1110 200 Output Total 450 100 Balance 660 100 Weight 138 lb 9.6 oz Intake: Oral 1110 200 Output: Urine 450 100 Void 450 100 Other: Voiding Method Urinal Urinal Bowel Movement No Yes # Bowel Movements 1 Weight Measurement Method Standing Scale Active Medications Acetaminophen (Tylenol -) 650 mg PO Q6H PRN PRN Reason: FEVER OR PAIN Aspirin (Ecotrin -) 81 mg PO DAILY [facility] Last Admin: 11/07/17 09:28 Dose: 81 mg Atorvastatin Calcium (Lipitor -) 20 mg PO HS [facility] Last Admin: 11/06/17 21:42 Dose: 20 mg Bacitracin (Bacitracin -) 1 applic TP BID [facility] Last Admin: 11/07/17 09:27 Dose: Not Given Folic Acid (Folic Acid -) 1 mg PO DAILY [facility] Last Admin: 11/07/17 09:28 Dose: 1 mg Guaifenesin (Diabetic Tussin Dm -) 5 ml PO Q4H PRN PRN Reason: COUGH Last Admin: 11/07/17 12:15 Dose: 5 ml Haloperidol (Haldol -) 5 mg PO DAILY [facility] Last Admin: 11/07/17 12:13 Dose: 5 mg Rifampin (Rifadin -) 300 mg PO DAILY [facility] Last Admin: 11/07/17 12:13 Dose: 300 mg Sevelamer Carbonate (Renvela -) 800 mg PO TIDCM [facility] Last Admin: 11/07/17 12:15 Dose: 800 mg CBC, BMP 11/06/17 08:30 11/06/17 08:30 Physical Exam. Constitutional: Yes: No Distress, comfortable Eyes: Yes: Conjunctiva Clear Neck: Yes: Supple/ no JVD Cardiovascular: Yes: Regular Rate and Rhythm Respiratory: Yes: CTA Bilaterally Gastrointestinal: Yes: Soft/ non tender Edema: No Neurological: Yes: Alert and awake. Moves all extremities--- non focal exam Cranial nerves all intact Psychiatric: Yes: Alert Assessment/Plan stable social working on safe discharge Discussed with patient Physical therapy discharge when out pt dialysis set up. Problem List - Problems (1) Abnormal ECG Code(s): R94.31 - ABNORMAL ELECTROCARDIOGRAM [ECG] [EKG] (2) ESRD (end stage renal disease) on dialysis Code(s): N18.6 - END STAGE RENAL DISEASE; Z99.2 - DEPENDENCE ON RENAL DIALYSIS (3) Symptomatic anemia Code(s): D64.9 - ANEMIA, UNSPECIFIED
[2017-11-07] MEDS: ATORVASTATIN CA 20 MG TABLET (FP) PO SCH (21:30)
[2017-11-08] MEDS: SEVELAMER CARBONATE 800 MG TAB (FP) PO SCH ×2 (08:13→11:51)
[2017-11-08] MEDS: guaiFENesin/D-M SUGAR-FREE/ACLHOL-FREE 118 ML BOTTLE PO PRN (08:15)
[2017-11-08] MEDS ORDERED: PT OWN MED DRAWER 7, Y5N ONE ×2 (08:15→10:17)
--- NOTE | 2017-11-08 10:25 | PN ---
Progress Note (short form) - Note Progress Note: Vital Signs Temp 97.7 F 11/08/17 06:00 Pulse 90 11/08/17 06:00 Resp 18 11/08/17 06:00 BP 157/95 11/08/17 06:00 Pulse Ox 99 11/07/17 21:00 Intake & Output 11/07/17 11/07/17 11/08/17 11:59 23:59 11:59 Intake Total 200 520 300 Output Total 100 200 100 Balance 100 320 200 Weight 138 lb 9.6 oz Intake: Oral 200 520 300 Output: Urine 100 200 100 Void 100 200 100 Other: Voiding Method Urinal Urinal Bowel Movement Yes Yes # Bowel Movements 1 1 Weight Measurement Method Standing Scale Active Medications Acetaminophen (Tylenol -) 650 mg PO Q6H PRN PRN Reason: FEVER OR PAIN Aspirin (Ecotrin -) 81 mg PO DAILY [facility] Last Admin: 11/07/17 09:28 Dose: 81 mg Atorvastatin Calcium (Lipitor -) 20 mg PO HS [facility] Last Admin: 11/07/17 21:30 Dose: 20 mg Bacitracin (Bacitracin -) 1 applic TP BID [facility] Last Admin: 11/07/17 21:32 Dose: Not Given Folic Acid (Folic Acid -) 1 mg PO DAILY [facility] Last Admin: 11/07/17 09:28 Dose: 1 mg Guaifenesin (Diabetic Tussin Dm -) 5 ml PO Q4H PRN PRN Reason: COUGH Last Admin: 11/08/17 08:15 Dose: 5 ml Haloperidol (Haldol -) 5 mg PO DAILY [facility] Last Admin: 11/07/17 12:13 Dose: 5 mg Rifampin (Rifadin -) 300 mg PO DAILY [facility] Last Admin: 11/07/17 12:13 Dose: 300 mg Sevelamer Carbonate (Renvela -) 800 mg PO TIDCM [facility] Last Admin: 11/08/17 08:13 Dose: 800 mg CBC, BMP 11/06/17 08:30 11/06/17 08:30 Physical Exam. Constitutional: Yes: No Distress, comfortable Eyes: Yes: Conjunctiva Clear Neck: Yes: Supple/ no JVD Cardiovascular: Yes: Regular Rate and Rhythm Respiratory: Yes: CTA Bilaterally Gastrointestinal: Yes: Soft/ non tender Edema: No Neurological: Yes: Alert and awake. Moves all extremities--- non focal exam Cranial nerves all intact Psychiatric: Yes: Alert Assessment/Plan stable social working on safe discharge Discussed with patient Physical therapy discharge when out pt dialysis set up. anticipated discharge later today. I again discussed with home health care case manager/ nursing staff. Problem List - Problems (1) Abnormal ECG Code(s): R94.31 - ABNORMAL ELECTROCARDIOGRAM [ECG] [EKG] (2) ESRD (end stage renal disease) on dialysis Code(s): N18.6 - END STAGE RENAL DISEASE; Z99.2 - DEPENDENCE ON RENAL DIALYSIS (3) Symptomatic anemia Code(s): D64.9 - ANEMIA, UNSPECIFIED
[2017-11-08] MEDS: BACITRACIN 15 GM TUBE TOPICAL OINTMENT TP SCH (10:27)
[2017-11-08] MEDS: RIFAMPIN 300 MG CAPSULE PO SCH (10:28)
[2017-11-08] MEDS: HALOPERIDOL 5 MG TABLET (FP) PO SCH (10:28)
[2017-11-08] MEDS: ASPIRIN COATED 81 MG TABLET.EC PO SCH (10:29)
[2017-11-08] MEDS: FOLIC ACID 1 MG TABLET (FP) PO SCH (10:29)
--- NOTE | 2017-11-08 12:49 | PN ---
Progress Note (short form) - Note Progress Note: Renal Follow up for ESRD on HD Pt seen and examined at the bedside awake and alert no acute complaints awaiting his walker Vital Signs Temperature 97.7 F 11/08/17 06:00 Pulse Rate 92 H 11/08/17 10:00 Respiratory Rate 11/08/17 10:00 Blood Pressure 154/94 11/08/17 10:00 O2 Sat by Pulse Oximetry (%) 99 11/07/17 21:00 Intake & Output 11/05/17 11/06/17 11/07/17 11/08/17 23:59 23:59 23:59 23:59 Intake Total 740 1310 720 300 Output Total 300 650 300 100 Balance 440 660 420 200 Weight 64.892 kg 62.868 kg NAD awake and alert No LE edema CBC, BMP 11/06/17 08:30 11/06/17 08:30 Current Medications Acetaminophen (Tylenol -) 650 mg PO Q6H PRN PRN Reason: FEVER OR PAIN Aspirin (Ecotrin -) 81 mg PO DAILY [facility] Last Admin: 11/08/17 10:29 Dose: 81 mg Atorvastatin Calcium (Lipitor -) 20 mg PO HS [facility] Last Admin: 11/07/17 21:30 Dose: 20 mg Bacitracin (Bacitracin -) 1 applic TP BID [facility] Last Admin: 11/08/17 10:27 Dose: Not Given Folic Acid (Folic Acid -) 1 mg PO DAILY [facility] Last Admin: 11/08/17 10:29 Dose: 1 mg Guaifenesin (Diabetic Tussin Dm -) 5 ml PO Q4H PRN PRN Reason: COUGH Last Admin: 11/08/17 08:15 Dose: 5 ml Haloperidol (Haldol -) 5 mg PO DAILY [facility] Last Admin: 11/08/17 10:28 Dose: 5 mg Rifampin (Rifadin -) 300 mg PO DAILY [facility] Last Admin: 11/08/17 10:28 Dose: 300 mg Sevelamer Carbonate (Renvela -) 800 mg PO TIDCM [facility] Last Admin: 11/08/17 11:51 Dose: Not Given 66 year old gentleman with PMhx of ESRD on HD (MWF at [facility]), Hypertension , Recent MSSA Bacteremia with suspected endocarditis who was sent into the ED from dialysis for low Hgb. Hgb has been in the 7's since hospital discharge but now it fell to 6.8 and pt was mildly hypotensive on dialysis. #ESRD on HD dialysis tomorrow as inpatient vs outpatient #Acute on Chronic Anemia in setting of CKD/Infection Continue DEMETRIS with HD hgb stable #MSSA Bacteremia completed course of Abx no growth on repeat blood cultures #Diarrhea C-diff negative discharge planning pt has a dialysis chair available at [facility]
[2017-11-08 14:26] VITALS: BP 174/99; PULSE 99; TEMP 98.1
== END 2017-11-08 16:53 | disposition home health service (06) | DRG 682 ==
LOC: JER 18:51 → JERBED 22:09 → J5S 10-25 12:23
PROVIDERS: ADMIT Internal Medicine; ATTEND Internal Medicine
PROC: 30233N0 Transfusion of Autologous Red Blood Cells into Peripheral Vein, Percutaneous Approach (ICD-10-PCS; 2017-10-24)
PROC: 5A1D70Z Performance of Urinary Filtration, Intermittent, Less than 6 Hours Per Day (ICD-10-PCS; principal; 2017-10-26)
PROC: 3E0F7GC Introduction of Other Therapeutic Substance into Respiratory Tract, Via Natural or Artificial Opening (ICD-10-PCS; 2017-11-06)
DX: I12.0 Hypertensive chronic kidney disease with stage 5 chronic kidney disease or end stage renal disease (principal); N18.6 End stage renal disease; F20.89 Other schizophrenia; G40.89 Other seizures; J98.11 Atelectasis; N40.0 Benign prostatic hyperplasia without lower urinary tract symptoms; J45.909 Unspecified asthma, uncomplicated; D63.8 Anemia in other chronic diseases classified elsewhere; R94.31 Abnormal electrocardiogram [ECG] [EKG]; A08.8 Other specified intestinal infections; E03.9 Hypothyroidism, unspecified; Z99.2 Dependence on renal dialysis
CPT/HCPCS: 36415; 36430; 36511; 71010-TC; 80048; 80053; 82272; 82550; 82565; 83735; 84100; 84443; 84484; 84520; 85025; 85027; 85044; 85610; 86704; 86706; 86708; 86803; 86850; 86900; 86901; 86922; 87040; 87324; 87340; 87449; 93005; 93010; 93225; 93226; 94010; 97116-GP; 97161-GP; 99285-25; J0885; P9038; P9058

== ENCOUNTER 2018-04-24 21:32 | Inpatient (IN) | payer OTHER ==
--- NOTE | 2018-04-24 21:36 | PDOC ---
Rapid Medical Evaluation Time Seen by Provider: 04/24/18 21:35 Medical Evaluation: Allergies Allergy/AdvReac Type Severity Reaction Status Date / Time No Known Drug Allergies Allergy Verified 10/24/17 18:54 04/24/18 21:35 67 year old male with ESRD on HD, HTN, endocarditis with right shoulder pain and swelling for 3 months, worsening over the past week. Limited ROM of right arm. V/s on arrival notable for HR 114. Had temp 100.8 at HD today and was given Vancomycin/Gentamicin (completed dialysis). -Sepsis labs/cultures -Xray right shoulder -To Main ED for further evaluation
--- NOTE | 2018-04-25 00:27 | PDOC ---
History of Present Illness - General Chief Complaint: Pain, Acute Stated Complaint: PAIN Time Seen by Provider: 04/24/18 21:35 - History of Present Illness Initial Comments: 67 year old male with ESRD (M,W,F) on HD, HTN, endocarditis with right shoulder pain and swelling for 3 months that has worsened over the past week. Patient states that the swelling and pain in his right shoulder has worsened gradually over this period of time and acutely worsened today in the setting of a slight fever 100.4 while in dialysis. He was then given a dose of Vancomycin, Gentamicin, and sent to the ED for evaluation. Patient only complains of limited ROM, pain, and fevers. His appetite is otherwise well and he feels overall well. Denies trauma to this shoulder joint. Denies nausea, vomiting, diarrhea, chest pain, SOB, or other sick symptoms. 04/25/18 00:28 Past History - Past Medical History Allergies/Adverse Reactions: Allergies Allergy/AdvReac Type Severity Reaction Status Date / Time No Known Drug Allergies Allergy Verified 04/24/18 21:41 Home Medications: Ambulatory Orders Aspirin [Ecotrin] 81 mg PO DAILY #90 tablet. 03/25/15 Acetaminophen Suppository [Tylenol .Suppository -] 650 mg [place] Q6H PRN #0 supp.rect 09/09/17 Atorvastatin Ca [Lipitor] 20 mg PO HS tablet 09/09/17 Haloperidol [Haldol -] 5 mg PO DAILY 10/24/17 Rifampin 300 mg PO DAILY 10/24/17 Sevelamer Carbonate 800 mg PO TID 10/24/17 Bacitracin - [Bacitracin Topical Ointment -] 1 applic TP BID 10/25/17 Folic Acid 1 mg PO DAILY 10/25/17 Folic Acid - 1 mg PO DAILY tablet 11/02/17 Anemia: No Asthma: Yes ( A CHILD) Cancer: No Cardiac Disorders: No CVA: No COPD: No CHF: No DVT: No Dementia: No Diabetes: No Dialysis: Yes (m-w-f, lt arm graft) GI Disorders: No Disorders: Yes (enlarged prostate) HTN: Yes Hypercholesterolemia: No Liver Disease: No Psychiatric Problems: Yes (restlessness and agitation,schizophernia) Seizures: No Thyroid Disease: No Other medical history: DIALYSIS - Surgical History Abdominal Surgery: No Appendectomy: No Cardiac Surgery: No Cholecystectomy: No Lung Surgery: No Neurologic Surgery: No Orthopedic Surgery: No - Immunization History Immunization Up to Date: No - Suicide/Smoking/Psychosocial Hx Smoking Status: No Smoking History: Never smoked Have you smoked in the past 12 months: Yes Number of Cigarettes Smoked Daily: 20 If you are a former smoker, when did you quit?: 1991 'Breaking Loose' booklet given: 03/13/15 Hx Alcohol Use: No Drug/Substance Use Hx: No Substance Use Type: None Hx Substance Use Treatment: No Review of Systems - Review of Systems Constitutional: No: Chills, Diaphoresis, Fever HEENTM: No: Recent change in vision, Double Vision Respiratory: No: Orthopnea, Shortness of Breath, SOB with Exertion Cardiac (ROS): No: Chest Pain, Edema, Irregular Heart Rate, Lightheadedness ABD/GI: No: Constipated, Diarrhea, Poor Appetite, Vomiting : No: Burning, Dysuria, Discharge Musculoskeletal: Yes: Joint Pain, Joint Swelling. No: Muscle Weakness Integumentary: No: Bruising, Change in Color, Change in Hair/Nails, Dryness, Erythema Neurological: No: Headache, Numbness, Paresthesia, Pre-Existing Deficit Psychiatric: No: Anxiety, Depression Hematologic/Lymphatic: No: Anemia, Blood Clots *Physical Exam - Vital Signs Last Vital Signs Temp Pulse Resp BP Pulse Ox 98.1 F 114 H 18 118/81 98 04/24/18 21:39 04/24/18 21:39 04/24/18 21:39 04/24/18 21:39 04/24/18 21:39 - Physical Exam General Appearance: Yes: Nourished, Appropriately Dressed. No: Apparent Distress HEENT: positive: EOMI, DANY, Normal ENT Inspection, Normal Voice Neck: positive: Trachea midline, Normal Thyroid, Supple. negative: Tender, Rigid Respiratory/Chest: positive: Lungs Clear, Normal Breath Sounds. negative: Chest Tender, Respiratory Distress, Accessory Muscle Use Cardiovascular: positive: Regular Rhythm, Tachycardia. negative: Regular Rate Gastrointestinal/Abdominal: positive: Normal Bowel Sounds, Flat, Soft. negative : Tender Musculoskeletal: positive: Decreased Range of Motion (Swelling, warmth, erythema , and limited ROM of right shoulder joint). negative: Normal Inspection, CVA Tenderness Extremity: positive: Normal Capillary Refill, Normal Inspection, Tender. negative: Normal Range of Motion (per above) Integumentary: positive: Dry, Warm, Erythema. negative: Normal Color Neurologic: positive: Fully Oriented, Alert, Normal Mood/Affect, Normal Response , Motor Strength 03/11 ED Treatment Course - LABORATORY CBC & Chemistry Diagram: 04/25/18 00:53 04/25/18 00:53 Medical Decision Making - Medical Decision Making 67 year old male with ESRD presenting with warm, swollen, tender, and erythematous right shoulder joint considering of septic arthtirits. Patient given vanc and gent in HD prior to arrival. Labs demonstrating lactic + sepsis meeting criteria for severe sepsis (after discussion with medicine). Patient ordered fro two liters of normal saline. Although patient requires IV hydration , this should be performed cautiously given ESRD and predisposition to volume overload. Patient admitted under med surg to Dr. Jackson as he has no PCP. 04/25/18 03:27 *DC/Admit/Observation/Transfer Diagnosis at time of Disposition: Severe sepsis, ESRD (end stage renal disease) on dialysis Septic joint Qualifiers: Septic arthritis location: shoulder Septic arthritis organism: due to unspecified organism Laterality: right Qualified Code(s): M00.9 - Pyogenic arthritis, unspecified - Discharge Dispostion Decision to Admit order: Yes - Referrals Referrals: Malorie Wells MD [Primary Care Provider] - - Patient Instructions - Post Discharge Activity
--- NOTE | 2018-04-25 00:55 | PDOC ---
Attending Attestation - HPI HPI: 04/25/18 00:55 The patient is a 67 year old male, with a significant past medical history of ESRD on HD, HTN, endocarditis, who presents to the emergency department with, worsening right shoulder pain and swelling. As per patient, he has had swelling for the past 3 months and over the past week it has since worsened with associated onset of pain. He reports limited ROM of his right arm. He denies any recent fevers, chills, headache or dizziness. He denies any recent nausea, vomit, diarrhea or constipation. He denies any recent chest pain or shortness of breath. He denies any recent dysuria, frequency, urgency or hematuria. Allergies: NKA Past surgical history: None reported. Social History: Nonsmoker. Denies EtOH use and recreational drug use. Primary Care Physician/Meteorology Teacher: Dr. Malorie Wells <Lakisha Hogue - Last Filed: 04/25/18 00:55> - Resident Resident Name: Shanna Vasquez - ED Attending Attestation I have performed the following: I have examined & evaluated the patient, The case was reviewed & discussed with the resident, I agree w/resident's findings & plan, Exceptions are as noted - Physicial Exam PE: 04/25/18 00:51 *Physical Exam General Appearance: Yes: Appropriately Dressed. No: Apparent Distress, Intoxicated HEENT: positive: EOMI, DANY, Normal ENT Inspection, Normal Voice, TMs Normal, Pharynx Normal. negative: Pale Conjunctivae, Photophobia, Scleral Icterus (R), Scleral Icterus (L) Neck: positive: Trachea midline, Normal Thyroid, Supple. negative: Tender, Rigid, Carotid bruit, Stridor, Lymphadenopathy (R), Lymphadenopathy (L), Thyromegaly Respiratory/Chest: positive: Lungs Clear, Normal Breath Sounds. negative: Chest Tender, Respiratory Distress, Accessory Muscle Use, Labored Respiration, RES, Crackles, Rales, Rhonchi, Stridor, Wheezing, Dullness Cardiovascular: positive: Regular Rhythm, Regular Rate, S1, S2. negative: Edema , JVD, Murmur, Bradycardia, Tachycardia Vascular Pulses: Dorsalis-Pedis (R): 2+, Doralis-Pedis (L): 2+ Gastrointestinal/Abdominal: positive: Normal Bowel Sounds, Flat, Soft. negative : Tender, Organomegaly, Pulsatile Mass, Increased Bowel Sounds, Decreased BS, Distended, Guarding, Rebound, Hernia, Hepatomegaly, Spleenomegaly Lymphatic: negative: Adenopathy, Tenderness Musculoskeletal: positive: Right shoulder swelling, tenderness, erythema. pain with active and passive ROM, Left arm AV graft +bruit + thrill negative: CVA Tenderness, Decreased Range of Motion Extremity: positive: Normal Capillary Refill, Normal Inspection, Normal Range of Motion, Pelvis Stable. negative: Tender, Pedal Edema, Swelling, Erythema Integumentary: positive: Normal Color, Dry, Warm. negative: Cyanotic, Erythema , Jaundice, Rash Neurologic: positive: hall supervisor II-XII NML intact, Fully Oriented, Alert, Normal Mood/ Affect, Motor Strength 5/5. negative: EOM Palsy, Facial Droop, Sensory Deficit - Medical Decision Making 04/25/18 19:26 Pt was admitted to [facility] <Jacobo Greenberg - Last Filed: 04/25/18 19:26> Attestations - Attestations 04/25/18 00:56 Documentation prepared by Lakisha Hogue, acting as medical research assistant for Jacobo Greenberg DO. <Lakisha Hogue - Last Filed: 04/25/18 00:55>
[2018-04-25 01:17] LABS: EOS % 0.9 % (0-4.5); HEMATOCRIT 30.4 % (35.4-49); HEMOGLOBIN 9.9 GM/dL (11.7-16.9); LYMPH % 10.5 % (8-40); MCH 29.6 pg (25.7-33.7); MCHC 32.6 g/dl (32.0-35.9); MEAN CELL VOLUME 90.9 fl (80-96); MEAN PLT VOLUME 7.1 fl (7.5-11.1); MONO % 14.1 % (3.8-10.2); NEUT % 73.5 % (42.8-82.8); PLATELET COUNT 358 K/MM3 (134-434); RBC 3.34 M/mm3 (4.00-5.60); RDW 17.5 % (11.9-15.9); WHITE BLOOD COUNT 5.5 K/mm3 (4.0-10.0)
[2018-04-25] MEDS ORDERED: ACETAMINOPHEN 325 MG TABLET (FP) PO ONE (01:30)
[2018-04-25] MEDS ORDERED: ACETAMINOPHEN 325 MG TABLET (FP) ONE (01:30)
[2018-04-25 01:32] LABS: INR 1.46 (0.82-1.09); PROTHROMBIN TIME (PATIENT) 16.5 SEC (9.7-13.0)
[2018-04-25 01:35] LABS: ACTIVATED PTT 33.5 SECONDS (25.2-36.5)
[2018-04-25 01:50] LABS: ALBUMIN 2.4 g/dl (3.4-5.0); ANION GAP 13 (8-16); BILIRUBIN,TOTAL 0.6 mg/dL (0.2-1.0); BLOOD UREA NITROGEN 29 mg/dL (7-18); CALCIUM 9.2 mg/dL (8.5-10.1); CHLORIDE 98 mmol/L (98-107); CO2 24 mmol/L (21-32); CREATININE 4.4 mg/dL (0.7-1.3); GLUCOSE,RANDOM 179 mg/dL (74-106); SGPT/ALT 14 U/L (12-78); SODIUM 135 mmol/L (136-145); TOT PROT 6.7 g/dl (6.4-8.2)
[2018-04-25 01:51] LABS: ALK PHOS 134 U/L (45-117)
[2018-04-25 01:59] LABS: POTASSIUM 4.2 mmol/L (3.5-5.1); SGOT/AST 24 U/L (15-37)
[2018-04-25] MEDS ORDERED: SODIUM CHLORIDE 1,000 ML IV STA ×2 (03:03)
--- NOTE | 2018-04-25 03:50 | PN ---
Teaching Attending Note Name of Resident: Ulises Jalloh ATTENDING PHYSICIAN STATEMENT I saw and evaluated the patient. I reviewed the resident's note and discussed the case with the resident. I agree with the resident's findings and plan as documented. SUBJECTIVE: Patient is a 67 year old man with ESRD (M,W,F) on HD, HTN, endocarditis and schizophrenia with right shoulder pain and swelling for 3 months that has worsened over the past week. Patient states that the swelling and pain in his right shoulder has worsened gradually over this period of time and acutely worsened today in the setting of a slight fever 100.4 while in dialysis. He was then given a dose of Vancomycin, Gentamicin, and sent to the ED for evaluation. Patient only complains of limited ROM, pain, and fevers. His appetite is otherwise well and he feels overall well. Denies trauma to this shoulder joint. Denies nausea, vomiting, diarrhea, chest pain, SOB, or other sick symptoms. OBJECTIVE: Alert and in no acute distress. Vital Signs Period Temp Pulse Resp BP Sys/[place] Pulse Ox Last 24 Hr 98.1 F-101.3 F 103-114 17-18 95-118/66-81 98-100 HEENT: No Jaundice, eye redness or discharge, PERRLA, EOMI. Normocephalic, atraumatic. External ears are normal and hearing is grossly intact. No nasal discharge. Neck: Supple, nontender. No palpable adenopathy or thyromegaly. No JVD Chest: Good effort. Clear to auscultation and percussion. Heart: Regular. No S3, rub or murmur Abdomen: Not distended, soft, nontender and no HSM. No rebound or guarding. Normoactive bowel sounds. Ext: Swollen and tender right shoulder with limited ROM. RUE dialysis AV access. Peripheral pulses intact. No leg edema. Skin: Warm and dry. No petechiae, rash or ecchymosis. Neuro: Alert. Oriented x3. CN 2-12 grossly intact. Sensation grossly intact in all four extremities and DTR are symmetric. Current Medications Generic Name Dose Route Start Last Admin Trade Name Freq PRN Reason Stop Dose Admin Sodium Chloride 1,000 mls @ 1,000 mls/hr 04/25/18 03:03 04/25/18 03:09 Normal Saline - IV 04/25/18 04:02 1,000 mls/hr ASDIR STA Administration Sodium Chloride 1,000 mls @ 1,000 mls/hr 04/25/18 03:03 04/25/18 03:10 Normal Saline - IV 04/25/18 04:02 1,000 mls/hr ASDIR STA Administration Home Medications Medication Instructions Recorded Aspirin [Ecotrin] 81 mg PO DAILY #90 tablet. 03/25/15 Acetaminophen Suppository [Tylenol 650 mg [place] Q6H PRN #0 supp.rect 09/09/17 .Suppository -] Atorvastatin Ca [Lipitor] 20 mg PO HS tablet 09/09/17 Haloperidol [Haldol -] 5 mg PO DAILY 10/24/17 Rifampin 300 mg PO DAILY 10/24/17 Sevelamer Carbonate 800 mg PO TID 10/24/17 Bacitracin - [Bacitracin Topical 1 applic TP BID 10/25/17 Ointment -] Folic Acid 1 mg PO DAILY 10/25/17 Folic Acid - 1 mg PO DAILY tablet 11/02/17 Abnormal Lab Results 04/25/18 04/25/18 04/25/18 00:51 00:53 00:53 RBC 3.34 L Hgb 9.9 L D Hct 30.4 L RDW 17.5 H MPV 7.1 L Monocytes % 14.1 H PT with INR 16.50 H INR 1.46 H Sodium BUN Creatinine Random Glucose Lactic Acid 2.9 H* Alkaline Phosphatase Albumin 04/25/18 00:53 RBC Hgb Hct RDW MPV Monocytes % PT with INR INR Sodium 135 L BUN 29 H D Creatinine 4.4 H D Random Glucose 179 H D Lactic Acid Alkaline Phosphatase 134 H Albumin 2.4 L D ASSESSMENT AND PLAN: 1. Septic arthritis of right shoulder - Patient has severe sepsis likely due to septic arthritis of right shoulder with tachycardia, hypotension, fever and lactic acidosis. He got 1 liter of NS but will now slow down to 40 ml/hour since he has ESRD. Consult nephrology to arrange for dialysis and thus permit more aggressive IV fluids if lactic acidosis persists. He is not toxic and is sitting up playing solitaire on his laptop. Will get CT of the shoulder to make tomás he does not have bursitis. Consult Ortho for stat arthrocentesis once CT demonstrates signficant fluid. Will give Rocephin 2 gm IV q 24 hours and renal- adjusted vancomycin dose pending result of blood cultures and ?athrocentesis fluid gramstain. Check urinalysis. 2. Right internal jugular clot - will consult radiology to ascertain if the clot is new or old before deciding on anticoagulation. 3. ?ACS - Has T wave depression in V4-6; will repeat EKG and check troponin to rule out ACS. 4. Schizophrenia - Continue current regimen. 5. DVT prophylaxis - Heparin 5000u sq tid 6. Advance directives - Full code
[2018-04-25] MEDS ORDERED: VANCOMYCIN 1,000 MG in DEXTROSE 5%-WATER - 250 ML IVPB ONE (04:45)
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
[2018-04-25] MEDS ORDERED: DEXTROSE 5%-WATER - 50 ML IVPB ONE ×2 (06:39→11:04)
[2018-04-25] MEDS ORDERED: cefTRIAXone SODIUM 1 GM VIAL ONE ×2 (06:39→11:04)
[2018-04-25] MEDS: HEPARIN NA (PORCINE) 5,000 UNITS/ML 1ML VIAL SQ SCH ×4 (06:42→21:32)
[2018-04-25] MEDS: CEFTRIAXONE 1 GM in DEXTROSE 5%-WATER - 50 ML IVPB SCH (06:42)
[2018-04-25] MEDS: ACETAMINOPHEN 325 MG TABLET (FP) PO PRN ×2 (07:00→11:16)
[2018-04-25] MEDS: SEVELAMER CARBONATE 800 MG TAB (FP) PO SCH ×2 (08:08→12:00)
[2018-04-25 08:26] LABS: BASO % 0.7 % (0-2.0); EOS % 1.7 % (0-4.5); HEMATOCRIT 28.2 % (35.4-49); HEMOGLOBIN 9.4 GM/dL (11.7-16.9); LYMPH % 10.2 % (8-40); MCH 30.5 pg (25.7-33.7); MCHC 33.3 g/dl (32.0-35.9); MEAN CELL VOLUME 91.5 fl (80-96); MONO % 17.4 % (3.8-10.2); PLATELET COUNT 324 K/MM3 (134-434); RBC 3.08 M/mm3 (4.00-5.60); RDW 17.2 % (11.9-15.9); WHITE BLOOD COUNT 5.9 K/mm3 (4.0-10.0)
[2018-04-25 09:01] LABS: CHLORIDE 98 mmol/L (98-107); POTASSIUM 3.3 mmol/L (3.5-5.1); SODIUM 137 mmol/L (136-145)
[2018-04-25 09:36] LABS: ALBUMIN 2.4 g/dl (3.4-5.0); ALK PHOS 125 U/L (45-117); ANION GAP 13 (8-16); BILIRUBIN,TOTAL 0.6 mg/dL (0.2-1.0); BLOOD UREA NITROGEN 34 mg/dL (7-18); CO2 26 mmol/L (21-32); CREATININE 4.8 mg/dL (0.7-1.3); GLUCOSE,RANDOM 136 mg/dL (74-106); MAGNESIUM 1.8 mg/dL (1.8-2.4); PHOSPHOROUS 4.9 mg/dL (2.5-4.9); SGOT/AST 9 U/L (15-37); SGPT/ALT 11 U/L (12-78); TOT PROT 6.2 g/dl (6.4-8.2)
[2018-04-25] MEDS ORDERED: POTASSIUM CHLORIDE TABS 20 MEQ TABLET.ER (FP) PO ONE (10:00)
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
[2018-04-25] MEDS: FOLIC ACID 1 MG TABLET (FP) PO SCH (11:16)
[2018-04-25] MEDS ORDERED: PT OWN MED DRAWER 7, Y5N ONE (11:23)
[2018-04-25] MEDS: HALOPERIDOL 5 MG TABLET (FP) PO SCH ×2 (11:25→11:29)
--- NOTE | 2018-04-25 11:56 | CONSULT ---
Consult Consult Specialty:: Nephrology ( [facility]/ [facility]) Reason for Consultation:: This patient has ESRD, on HD - History of Present Illness Chief Complaint: Patient is a 67 year old man with ESRD (M,W,F) on HD, HTN, endocarditis and schizophrenia admitted with severe right shoulder pain and swelling which has worsend over the past several days. The patient had fever on dialysis yesterday. He was then given a dose of Vancomycin, Gentamicin, and sent to the ED for evaluation. Patient has limited ROM, pain, and fevers. His appetite is otherwise well and he feels overall well. Denies trauma to this shoulder joint. Denies nausea, vomiting, diarrhea, chest pain, SOB, or other sick symptoms. 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 Cardio/Vascular: Yes: HTN, Other (H/o Endocarditis) Renal/: Yes: Renal Failure, BPH, Hemodialysis Infectious Disease: Yes: Other (recent bacteremia) Musculoskeletal: Yes: Other (Swollen right shoulder) Endocrine: Yes: Hyperparathyroidism - Past Surgical History Past Surgical History: Yes: AV Fistula/Graft, TURP - Alcohol/Substance Use Hx Alcohol Use: No History of Substance Use: reports: Marijuana - Smoking History Smoking history: Former smoker Have you smoked in the past 12 months: No Aproximately how many cigarettes per day: 20 If you are a former smoker, when did you quit?: 1991 - Social History Usual Living Arrangement: Long-Term History of Recent Travel: No Home Medications - Allergies Allergies/Adverse Reactions: Allergies Allergy/AdvReac Type Severity Reaction Status Date / Time No Known Drug Allergies Allergy Verified 04/24/18 21:41 - Home Medications Home Medications: Ambulatory Orders Aspirin [Ecotrin] 81 mg PO DAILY #90 tablet. 03/25/15 Acetaminophen Suppository [Tylenol .Suppository -] 650 mg [place] Q6H PRN #0 supp.rect 09/09/17 Atorvastatin Ca [Lipitor] 20 mg PO HS tablet 09/09/17 Haloperidol [Haldol -] 5 mg PO DAILY 10/24/17 Rifampin 300 mg PO DAILY 10/24/17 Sevelamer Carbonate 800 mg PO TID 10/24/17 Bacitracin - [Bacitracin Topical Ointment -] 1 applic TP BID 10/25/17 Folic Acid 1 mg PO DAILY 10/25/17 Folic Acid - 1 mg PO DAILY tablet 11/02/17 Review of Systems - Review of Systems Constitutional: reports: Fever HENT: denies: Difficult Swallowing Cardiovascular: denies: Chest Pain, Shortness of Breath Respiratory: denies: Cough, Orthopnea Gastrointestinal: denies: Abdominal Pain Genitourinary: denies: Burning, Dysuria, Hematuria Musculoskeletal: reports: Extremity Pain (right shoulder), Joint Pain, Joint Swelling (rt shoulder) Neurological: denies: Change in Speech, Confusion, Headache Psychiatric: reports: Other (h/o schizophrenia) Physical Exam Vital Signs: Vital Signs Temperature 98.2 F 04/25/18 08:13 Pulse Rate 98 H 04/25/18 08:13 Respiratory Rate 19 04/25/18 08:13 Blood Pressure 106/74 04/25/18 08:13 O2 Sat by Pulse Oximetry (%) 96 04/25/18 05:18 Constitutional: Yes: Well Nourished, Calm HENT: Yes: Normocephalic Cardiovascular: Yes: S1, S2 Respiratory: Yes: CTA Bilaterally Gastrointestinal: Yes: Normal Bowel Sounds, Soft Renal/: No: CVA Tenderness - Left, CVA Tenderness - Right, Hematuria Musculoskeletal: Yes: Joint Stiffness, Joint Swelling (right shoulder) Labs: CBC, BMP 04/25/18 07:45 04/25/18 07:45 Problem List - Problems (1) Anemia of renal disease Code(s): D63.1 - ANEMIA IN CHRONIC KIDNEY DISEASE (2) ESRD (end stage renal disease) on dialysis Code(s): N18.6 - END STAGE RENAL DISEASE; Z99.2 - DEPENDENCE ON RENAL DIALYSIS (3) Septic joint Code(s): M00.9 - PYOGENIC ARTHRITIS, UNSPECIFIED Qualifiers: Septic arthritis location: shoulder Septic arthritis organism: due to unspecified organism Laterality: right Qualified Code(s): M00.9 - Pyogenic arthritis, unspecified (4) Hyperlipidemia Code(s): E78.5 - HYPERLIPIDEMIA, UNSPECIFIED (5) Hypertension Code(s): I10 - ESSENTIAL (PRIMARY) HYPERTENSION (6) Hypothyroid Code(s): E03.9 - HYPOTHYROIDISM, UNSPECIFIED Assessment/Plan Patient is a 67 year old man with ESRD (M,W,F) on HD, HTN, endocarditis and schizophrenia with right shoulder pain and swelling. The patient had fever on dialysis yesterday. Right shoulder pain and swelling. Cant' r/o Septic arthritis. ( Fever, chills, fluctuant swelling, absence of trauma) On IV abx. Will continue the same. Will arrange for next HD for tomorrow Orthopedic w/u in progress. Thank you. Will follow with you. Malorie Wells MD
--- NOTE | 2018-04-25 13:14 | PN ---
Progress Note (short form) - Note Progress Note: ID Consult dictated Septic arthritis R shoulder v. Infected bursa Fever/ tachycardia/ hypotension/ Lactic acidosis R/O sepsis secondary to infected shoulder ESRD Await c/s Vanco/genta/ ceftriaxone given Ortho evaluation for joint aspiration Fluid for routine, AFB,Fungal c/s Lab to hold specimen for P. acnes
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
[2018-04-25] MEDS ORDERED: DOCUSATE SODIUM 100 MG CAPSULE (FP) PO PRN (14:15)
[2018-04-25] MEDS: oxyCODONE HCL 5 MG TABLET PO PRN ×2 (14:41→21:29)
--- NOTE | 2018-04-25 14:53 | EKG ---
Test Reason : Blood Pressure : / mmHG Vent. Rate : 089 BPM Atrial Rate : 089 BPM P-R Int : 214 ms QRS Dur : 088 ms QT Int : 392 ms P-R-T Axes : 077 068 -84 degrees QTc Int : 476 ms SINUS RHYTHM WITH 1ST DEGREE A-V BLOCK NONSPECIFIC ST AND T WAVE ABNORMALITY ABNORMAL ECG WHEN COMPARED WITH ECG OF 24-APR-2018 23:49, QT HAS SHORTENED Confirmed by MD Oswald, Yeyo ([id number]) on 04/25/2018 2:53:28 PM Referred By: Beckie VIDAL Confirmed By:Yeyo Akers MD
--- NOTE | 2018-04-25 15:04 | EKG ---
Test Reason : Blood Pressure : / mmHG Vent. Rate : 110 BPM Atrial Rate : 110 BPM P-R Int : 218 ms QRS Dur : 084 ms QT Int : 406 ms P-R-T Axes : 075 067 066 degrees QTc Int : 549 ms SINUS TACHYCARDIA WITH 1ST DEGREE A-V BLOCK PROLONGED QT ABNORMAL ECG nonspecific t wave abnormalities inferolateral leads Confirmed by MD Akers Edward ([id number]) on 04/25/2018 3:03:35 PM Referred By: Confirmed By:Yeyo Akers MD
--- NOTE | 2018-04-25 19:10 | PN ---
Physical Exam: SUBJECTIVE: Patient seen and examined at bedside. No acute events overnight. Today, pt disagreeable. States that he does not know why he is on eliquis. Refuses to give more information. Only states that he has increased pain in his R shoulder. Denies LENZ, fever, chills, SOB, or changes in urinary or bowel function. OBJECTIVE: Vital Signs Period Temp Pulse Resp BP Sys/Sheridan Pulse Ox Last 24 Hr 97.8 F-101.3 F 83-114 17-20 95-131/66-91 96-100 GENERAL: The patient is disagreeable, awake, alert, and fully oriented, in mild distress HEAD: Normal with no signs of trauma. EYES: PERRL, extraocular movements intact, sclera anicteric, conjunctiva clear. ENT: Ears normal, nares patent, oropharynx clear without exudates, moist mucous membranes. NECK: Trachea midline, supple. LUNGS: Breath sounds equal, clear to auscultation bilaterally, no wheezes, no crackles, no accessory muscle use. HEART: Regular rate and rhythm, S1, S2 - in sinus without murmur, rub or gallop. ABDOMEN: Soft, nontender, nondistended, normoactive bowel sounds, no guarding UPPER EXTREMITY: +R shoulder: with erythema, diffusely TTP, decreased ROM. +LUE : with AVF site NEUROLOGICAL: refused neuro exam PSYCH: Normal mood, normal affect. SKIN: Warm, dry, normal turgor Laboratory Results - last 24 hr 04/25/18 04/25/18 04/25/18 00:51 00:53 00:53 WBC 5.5 RBC 3.34 L Hgb 9.9 L D Hct 30.4 L MCV 90.9 MCH 29.6 MCHC 32.6 RDW 17.5 H Plt Count 358 D MPV 7.1 L Absolute Neuts (auto) 4.0 Neutrophils % 73.5 D Lymphocytes % 10.5 D Monocytes % 14.1 H Eosinophils % 0.9 D Basophils % 1.0 Nucleated RBC % 0 PT with INR 16.50 H INR 1.46 H PTT (Actin FS) 33.5 Chloride Random Glucose Lactic Acid 2.9 H* 04/25/18 04/25/18 04/25/18 00:53 07:45 07:45 WBC 5.9 RBC 3.08 L Hgb 9.4 L Hct 28.2 L MCV 91.5 MCH 30.5 MCHC 33.3 RDW 17.2 H Plt Count 324 MPV 7.0 L Absolute Neuts (auto) 4.1 Neutrophils % 70.0 Lymphocytes % 10.2 Monocytes % 17.4 H Eosinophils % 1.7 D Basophils % 0.7 Nucleated RBC % 0 PTT (Actin FS) Sodium 135 L Potassium 4.2 Chloride 98 Carbon Dioxide 24 Anion Gap 13 BUN 29 H D Creatinine 4.4 H D Creat Clearance w eGFR 13.48 Random Glucose 179 H D Lactic Acid Calcium 9.2 Phosphorus Magnesium Total Bilirubin 0.6 AST 24 ALT 14 D Alkaline Phosphatase 134 H C-Reactive Protein Total Protein 6.7 Albumin 2.4 L D Active Medications Generic Name Dose Route Start Last Admin Trade Name Freq PRN Reason Stop Dose Admin Acetaminophen 650 mg 04/25/18 06:38 04/25/18 07:00 Tylenol - PO 650 mg Q4H PRN Administration PAIN LEVEL 1-5 Docusate Sodium 100 mg 04/25/18 14:15 Colace - PO Q12H PRN CONSTIPATION Folic Acid 1 mg 04/25/18 10:00 04/25/18 11:16 Folic Acid - PO 1 mg DAILY PANTERA Administration Heparin Sodium (Porcine) 5,000 unit 04/25/18 06:00 04/25/18 13:44 Heparin - SQ 5,000 unit TID PANTERA Administration Ceftriaxone Sodium 1 gm/ 50 mls @ 100 mls/hr 04/25/18 05:00 04/25/18 06:42 Dextrose IVPB 100 mls/hr DAILY PANTERA Administration Protocol Oxycodone HCl 5 mg 04/25/18 14:15 04/25/18 14:41 Roxicodone - PO 5 mg Q6H PRN Administration PAIN LEVEL 6-10 Testing 04/25/18: Duplex RUE: nonocclusive thrombus in the R internal jugular vein. The remainder of the examination appears unremarkable. 04/25/18: R Shoulder XR: official report pending 04/25/18: CXR: no evidence of active pulmonary disease, no evidence of pneumothorax 04/25/18: CT upper extremity w/o contrast: findings are most consistent with septic arthritis and adjacent osteomyeliis. there is a very large joint effusion and fluid in the area of the shoulder. small pleural effusion. additional imaging can be obtained with MRI. ASSESSMENT/PLAN: 67 y/o m w/ PMH ESRD on HD who comes into the ED c/o right arm swelling, erythema, pain and fever. #Right shoulder pain likely 2/2 septic arthritis -differentials: hemarthrosis, gout, pseudogout -rocephin 1g IVPB qd (today is Day 1) -for joint tap tomorrow with ortho, Dr. Smith -F/u blood cx, ucx -oxycodone 5mg PO q6h PRN added for pain #Hx lupus anticoagulant +, h/o Afib -continue eliquis 2.5 mg PO BID, however will hold -as per pt, last took eliquis one week prior. hemarthrosis may be less likely -will need to d/w cardio eliquis, as pt unclear as to indication #RUE US showing right IJ thrombus -will hold eliquis , for tap tomorrow -asa 81mg PO qd -Vascular consult: Dr. Knight, to determine if new or old #Hypokalemia -repleted with Kdur 40mEq PO x 1 #ESRD on HD -for dialysis tomorrow -Nephro- Dr. Hernández #FEN -no fluids indicated -lytes WNL, replete PRN -NPO after midnight for procedure tomorrow #PPX eliquis, heparin - hold after midnight. SCD's #Dispo -continue to monitor on med surg Visit type - Emergency Visit Emergency Visit: No - New Patient This patient is new to me today: Yes Date on this admission: 04/25/18 - Critical Care Critical Care patient: No
[2018-04-25] MEDS ORDERED: ATORVASTATIN CA 20 MG TABLET (FP) PO SCH (22:00)
[2018-04-26] MEDS: ACETAMINOPHEN 325 MG TABLET (FP) PO PRN (03:42)
[2018-04-26] MEDS: oxyCODONE HCL 5 MG TABLET PO PRN ×4 (03:42→23:32)
--- NOTE | 2018-04-26 09:08 | PN ---
Progress Note (short form) - Note Progress Note: right shoulder aspirated 40cc of cloudy whitish fluid obtained fluid sent for cell #, gram stain and C&S if wbc elevated significantly, then the patient will need an I&D we will await lab results prior to deciding
[2018-04-26 09:23] LABS: ANION GAP 13 (8-16); BASO % 0.8 % (0-2.0); BLOOD UREA NITROGEN 49 mg/dL (7-18); CALCIUM 9.1 mg/dL (8.5-10.1); CHLORIDE 98 mmol/L (98-107); CO2 25 mmol/L (21-32); CREATININE 6.4 mg/dL (0.7-1.3); EOS % 5.6 % (0-4.5); GLUCOSE,RANDOM 105 mg/dL (74-106); HEMATOCRIT 29.2 % (35.4-49); HEMOGLOBIN 9.6 GM/dL (11.7-16.9); LYMPH % 18.2 % (8-40); MCH 30.1 pg (25.7-33.7); MCHC 32.9 g/dl (32.0-35.9); MEAN CELL VOLUME 91.3 fl (80-96); MEAN PLT VOLUME 7.2 fl (7.5-11.1); MONO % 12.6 % (3.8-10.2); NEUT % 62.8 % (42.8-82.8); PLATELET COUNT 362 K/MM3 (134-434); POTASSIUM 3.9 mmol/L (3.5-5.1); RBC 3.19 M/mm3 (4.00-5.60); RDW 17.5 % (11.9-15.9); SODIUM 136 mmol/L (136-145)
[2018-04-26] MEDS ORDERED: cefTRIAXone SODIUM 1 GM VIAL ONE (11:07)
[2018-04-26] MEDS ORDERED: DEXTROSE 5%-WATER - 50 ML IVPB ONE (11:08)
[2018-04-26] MEDS: CEFTRIAXONE 1 GM in DEXTROSE 5%-WATER - 50 ML IVPB SCH (11:19)
[2018-04-26] MEDS: FOLIC ACID 1 MG TABLET (FP) PO SCH (11:20)
--- NOTE | 2018-04-26 11:26 | PN ---
Progress Note, Physician Chief Complaint: The patient had Right shoulder aspiration done yesterday. Fluid analysis awaited. No leucocytosis. Seen on dialysis. Refuses to take full dialysis. The right shoulder pain unchanged, per the patient. - Current Medication List Current Medications: Active Medications Acetaminophen (Tylenol -) 650 mg PO Q4H PRN PRN Reason: PAIN LEVEL 1-5 Last Admin: 04/26/18 03:42 Dose: 650 mg Docusate Sodium (Colace -) 100 mg PO Q12H PRN PRN Reason: CONSTIPATION Folic Acid (Folic Acid -) 1 mg PO DAILY [facility] Last Admin: 04/25/18 11:16 Dose: 1 mg Heparin Sodium (Porcine) (Heparin -) 5,000 unit SQ TID [facility] Last Admin: 04/25/18 21:32 Dose: Not Given Ceftriaxone Sodium 1 gm/ (Dextrose) 50 mls @ 100 mls/hr IVPB DAILY [facility]; Protocol Last Admin: 04/25/18 06:42 Dose: 100 mls/hr Oxycodone HCl (Roxicodone -) 5 mg PO Q6H PRN PRN Reason: PAIN LEVEL 6-10 Last Admin: 04/26/18 03:42 Dose: 5 mg - Objective Vital Signs: Vital Signs Temperature 98.0 F 04/26/18 10:45 Pulse Rate 89 04/26/18 10:45 Respiratory Rate 16 04/26/18 10:45 Blood Pressure 109/75 04/26/18 10:45 O2 Sat by Pulse Oximetry (%) 96 04/25/18 21:00 Constitutional: Yes: No Distress Eyes: Yes: EOM Intact Neck: Yes: Trachea Midline Cardiovascular: Yes: S1, S2 Respiratory: Yes: CTA Bilaterally Gastrointestinal: Yes: Normal Bowel Sounds, Soft Genitourinary: No: CVA Tenderness - Left, CVA Tenderness - Right Musculoskeletal: Yes: Joint Stiffness Neurological: Yes: Alert, Oriented Psychiatric: Yes: Alert, Oriented Labs: CBC, BMP 04/26/18 08:00 04/26/18 08:00 INR, PTT INR 1.46 (0.82-1.09) H 04/25/18 00:53 Problem List - Problems (1) Anemia of renal disease Code(s): D63.1 - ANEMIA IN CHRONIC KIDNEY DISEASE (2) ESRD (end stage renal disease) on dialysis Code(s): N18.6 - END STAGE RENAL DISEASE; Z99.2 - DEPENDENCE ON RENAL DIALYSIS (3) Septic joint Code(s): M00.9 - PYOGENIC ARTHRITIS, UNSPECIFIED Qualifiers: Septic arthritis location: shoulder Septic arthritis organism: due to unspecified organism Laterality: right Qualified Code(s): M00.9 - Pyogenic arthritis, unspecified (4) Hyperlipidemia Code(s): E78.5 - HYPERLIPIDEMIA, UNSPECIFIED (5) Hypertension Code(s): I10 - ESSENTIAL (PRIMARY) HYPERTENSION (6) Hypothyroid Code(s): E03.9 - HYPOTHYROIDISM, UNSPECIFIED Assessment/Plan Patient is a 67 year old man with ESRD (M,W,F) on HD, HTN, endocarditis and schizophrenia with right shoulder pain and swelling. The patient had fever on dialysis yesterday. Right shoulder pain and swelling. S/p aspiration. Cant' r/o Septic arthritis. ( Fever, chills, fluctuant swelling, absence of trauma). On IV abx. Will continue the same. The patient reports he was on Eliquis. But he does not see a Office Admin or a PMD. he does not come to our office also for f/u. We dont know who gave him the Eliquis. It is not listed in the HD unit med list. Ortho f/u noted. Thank you. Will follow with you. Malorie Wells MD
--- NOTE | 2018-04-26 11:32 | PN ---
Progress Note, Physician History of Present Illness: S/P aspiration R shoulder 40cc cloudy fluid obtained Reports less R shoulder pain Temps down Afebrile Cultures pending - Current Medication List Current Medications: Active Medications Acetaminophen (Tylenol -) 650 mg PO Q4H PRN PRN Reason: PAIN LEVEL 1-5 Last Admin: 04/26/18 03:42 Dose: 650 mg Docusate Sodium (Colace -) 100 mg PO Q12H PRN PRN Reason: CONSTIPATION Folic Acid (Folic Acid -) 1 mg PO DAILY [facility] Last Admin: 04/26/18 11:20 Dose: 1 mg Heparin Sodium (Porcine) (Heparin -) 5,000 unit SQ TID [facility] Last Admin: 04/25/18 21:32 Dose: Not Given Ceftriaxone Sodium 1 gm/ (Dextrose) 50 mls @ 100 mls/hr IVPB DAILY [facility]; Protocol Last Admin: 04/26/18 11:19 Dose: 100 mls/hr Oxycodone HCl (Roxicodone -) 5 mg PO Q6H PRN PRN Reason: PAIN LEVEL 6-10 Last Admin: 04/26/18 11:20 Dose: 5 mg - Objective Vital Signs: Vital Signs Temperature 98.0 F 04/26/18 10:45 Pulse Rate 89 04/26/18 10:45 Respiratory Rate 16 04/26/18 10:45 Blood Pressure 109/75 04/26/18 10:45 O2 Sat by Pulse Oximetry (%) 96 04/25/18 21:00 Constitutional: Yes: No Distress Eyes: Yes: Conjunctiva Clear Cardiovascular: Yes: Regular Rate and Rhythm, S1, S2 Respiratory: Yes: CTA Bilaterally Gastrointestinal: Yes: Normal Bowel Sounds, Soft. No: Tenderness Extremities: Yes: Other (decreased R shoulder swelling/warmth No erythema) Labs: CBC, BMP 04/26/18 08:00 04/26/18 08:00 INR, PTT INR 1.46 (0.82-1.09) H 04/25/18 00:53 Assessment/Plan R/O septic arthritis R shoulder Sepsis secondary to infected shoulder ESRD Await c/s Continue ceftriaxone Check random vancomycin level Ortho follow up
[2018-04-26 11:37] LABS: SYNOVIAL FLUID RBC 39112 /mm3; SYNOVIAL FLUID SOURCE SYNOVIAL FLUID
[2018-04-26 12:00] LABS: SYNOVIAL FLUID LYMPHOCYTES 0 %; SYNOVIAL FLUID MONOCYTES 8 %; SYNOVIAL FLUID NEUTROPHILS 92 %
[2018-04-26] MEDS ORDERED: ROCURONIUM BROMIDE 50 MG/5 ML VIAL ONE (12:22)
[2018-04-26] MEDS ORDERED: PROPOFOL 20 ML ONE (12:22)
[2018-04-26] MEDS ORDERED: MIDAZOLAM HCL 2 MG/2 ML SINGLE DOSE VIAL ONE (12:22)
[2018-04-26] MEDS ORDERED: LIDOCAINE HCL/PF 2% SDV 5ML VIAL ONE (12:23)
--- NOTE | 2018-04-26 14:16 | OP ---
Operative Note - Note: Operative Date: 04/26/18 ([facility]) Pre-Operative Diagnosis: right shoulder septic joint Operation: right shoulder arthroscopy with washout and debridement Post-Operative Diagnosis: Same as Pre-op Surgeon: Kameron Smith Anesthesiologist/BLUE SPLIT TRIMMER: Duarte Bullard Anesthesia: General Estimated Blood Loss (mls): 5 Operative Report Dictated: Yes
[2018-04-26] MEDS ORDERED: DOCUSATE SODIUM 100 MG CAPSULE (FP) PO PRN (14:33)
[2018-04-26] MEDS ORDERED: ACETAMINOPHEN 325 MG TABLET (FP) PO PRN (14:33)
--- NOTE | 2018-04-26 16:03 | PN ---
Physical Exam: SUBJECTIVE: Patient seen and examined at bedside. Overnight, no acute events. Today, pt underwent dialysis. Also, had R shoulder fluid aspirated and arthroscopy today. Pt states that he still has R shoulder pain, and that it is hard for him to find a spot to be comfortable in. Denies LENZ, fever, chills. OBJECTIVE: Vital Signs Period Temp Pulse Resp BP Sys/[place]idan Pulse Ox Last 24 Hr 97.9 F-98.9 F 87-104 12-20 90-190/56-99 96-100 GENERAL: The patient is awake, alert, and fully oriented, in no acute distress. HEAD: Normal with no signs of trauma. EYES: PERRL, extraocular movements intact, sclera anicteric, conjunctiva clear. No ptosis. ENT: Ears normal, nares patent, oropharynx clear without exudates, moist mucous membranes. +poor dentition NECK: Trachea midline, supple. LUNGS: Breath sounds equal, clear to auscultation bilaterally, no wheezes, no crackles, no accessory muscle use. HEART: +tachycardic rate and rhythm, S1, S2 without murmur, rub or gallop. ABDOMEN: Soft, nontender, nondistended, normoactive bowel sounds, no guarding, no rebound EXTREMITIES: +R shoulder- wrapped NEUROLOGICAL: Cranial nerves II through XII grossly intact. +decreased passive and active ROM - RUE PSYCH: Normal mood, normal affect. SKIN: Warm, dry, normal turgor Laboratory Results - last 24 hr 04/26/18 04/26/18 04/26/18 08:00 08:00 09:00 WBC 5.0 RBC 3.19 L Hgb 9.6 L Hct 29.2 L MCV 91.3 MCH 30.1 MCHC 32.9 RDW 17.5 H Plt Count 362 MPV 7.2 L Absolute Neuts (auto) 3.1 Neutrophils % 62.8 Lymphocytes % 18.2 D Monocytes % 12.6 H Eosinophils % 5.6 H D Basophils % 0.8 Nucleated RBC % 0 Sodium 136 Potassium 3.9 Chloride 98 Carbon Dioxide 25 Anion Gap 13 BUN 49 H D Creatinine 6.4 H D Creat Clearance w eGFR 8.75 Random Glucose 105 D Calcium 9.1 Synovial Source Synovial fluid Synovial WBC 58705 Synovial RBC 31279 Synovial Neutrophils 92 Synovial Lymphocytes 0 Synovial Monocytes 8 Active Medications Generic Name Dose Route Start Last Admin Trade Name Freq PRN Reason Stop Dose Admin Acetaminophen 650 mg 04/26/18 14:33 Tylenol - PO Q4H PRN PAIN LEVEL 1-5 Docusate Sodium 100 mg 04/26/18 14:33 Colace - PO Q12H PRN CONSTIPATION Fentanyl 25 mcg 04/26/18 14:33 Sublimaze Injection - IVPUSH [id number] PRN PAIN-PACU ORDER X 4 DOSES ONLY Folic Acid 1 mg 04/27/18 10:00 Folic Acid - PO DAILY [facility] Ceftriaxone Sodium 1 gm/ 50 mls @ 100 mls/hr 04/27/18 10:00 Dextrose IVPB DAILY [facility] Protocol Oxycodone HCl 5 mg 04/26/18 14:33 Roxicodone - PO Q6H PRN PAIN LEVEL 6-10 Testing 04/25/18: Duplex RUE: nonocclusive thrombus in the R internal jugular vein. The remainder of the examination appears unremarkable. 04/25/18: R Shoulder XR: official report pending 04/25/18: CXR: no evidence of active pulmonary disease, no evidence of pneumothorax 04/25/18: CT upper extremity w/o contrast: findings are most consistent with septic arthritis and adjacent osteomyeliis. there is a very large joint effusion and fluid in the area of the shoulder. small pleural effusion. additional imaging can be obtained with MRI. ASSESSMENT/PLAN: 67 y/o M w/ PMH ESRD on HD who comes into the ED c/o right arm swelling, erythema, pain and fever. #Right shoulder pain likely 2/2 septic arthritis -s/p R shoulder arthroscopy with washout and debridement (PO Day 0) -R shoulder aspirated - 40cc cloudy fluid, sent for cells, gram stain, culture, sensitivity -rocephin 1g IVPB qd (today is Day 2) -F/u random vanc level -Blood cx (-) 24 hrs -oxycodone 5mg PO q6h PRN added for pain #Hx lupus anticoagulant +, h/o Afib -holding eliquis, pt is s/p tap -as per pt, last took eliquis one week prior. hemarthrosis may be less likely -will need to d/w cardio eliquis, as pt unclear as to indication. Renal also unclear as to indication or where pt getting med from #RUE US showing right IJ thrombus -holding eliquis -asa 81mg PO qd -Vascular consult: Dr. Knight, to determine if new or old #Hypokalemia -repleted with Kdur 40mEq PO x 1 #ESRD on HD -dialysis session today - 04/26 -Nephro- Dr. Hernández #FEN -no fluids indicated; on dialysis avoid fluid overload -lytes WNL, replete PRN -sodium controlled diet #PPX SCD's #Dispo -continue to monitor on med surg Visit type - Emergency Visit Emergency Visit: No - New Patient This patient is new to me today: No - Critical Care Critical Care patient: No
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
[2018-04-26] MEDS ORDERED: oxyCODONE HCL 5 MG TABLET PO ONE (18:45)
--- NOTE | 2018-04-26 19:03 | PN ---
Teaching Attending Note Name of Resident: Allyson Loredo ATTENDING PHYSICIAN STATEMENT I saw and evaluated the patient. I reviewed the resident's note and discussed the case with the resident. I agree with the resident's findings and plan as documented. SUBJECTIVE: Patient is feeling better, going for arthroscopy. c/o having right shoulder pain. OBJECTIVE: Vital Signs Temperature 98.6 F 04/26/18 16:12 Pulse Rate 71 04/26/18 16:12 Respiratory Rate 21 04/26/18 16:12 Blood Pressure 156/85 04/26/18 16:12 O2 Sat by Pulse Oximetry (%) 100 04/26/18 16:12 CBCD WBC 5.0 K/mm3 (4.0-10.0) 04/26/18 08:00 RBC 3.19 M/mm3 (4.00-5.60) L 04/26/18 08:00 Hgb 9.6 GM/dL (11.7-16.9) L 04/26/18 08:00 Hct 29.2 % (35.4-49) L 04/26/18 08:00 MCV 91.3 fl (80-96) 04/26/18 08:00 MCHC 32.9 g/dl (32.0-35.9) 04/26/18 08:00 RDW 17.5 % (11.9-15.9) H 04/26/18 08:00 Plt Count 362 K/MM3 (134-434) 04/26/18 08:00 MPV 7.2 fl (7.5-11.1) L 04/26/18 08:00 CMP Sodium 136 mmol/L (136-145) 04/26/18 08:00 Potassium 3.9 mmol/L (3.5-5.1) 04/26/18 08:00 Chloride 98 mmol/L (98-107) 04/26/18 08:00 Carbon Dioxide 25 mmol/L (21-32) 04/26/18 08:00 Anion Gap 13 (8-16) 04/26/18 08:00 BUN 49 mg/dL (7-18) H D 04/26/18 08:00 Creatinine 6.4 mg/dL (0.7-1.3) H D 04/26/18 08:00 Creat Clearance w eGFR 8.75 (>60) 04/26/18 08:00 Random Glucose 105 mg/dL (74-106) D 04/26/18 08:00 Calcium 9.1 mg/dL (8.5-10.1) 04/26/18 08:00 Total Bilirubin 0.6 mg/dL (0.2-1.0) 04/25/18 07:45 AST 9 U/L (15-37) L D 04/25/18 07:45 ALT 11 U/L (12-78) L D 04/25/18 07:45 Alkaline Phosphatase 125 U/L (45-117) H 04/25/18 07:45 Total Protein 6.2 g/dl (6.4-8.2) L 04/25/18 07:45 Albumin 2.4 g/dl (3.4-5.0) L 04/25/18 07:45 CARDIAC ENZYMES Troponin I 0.05 ng/ml (0.00-0.05) D 04/25/18 07:45 Current Medications Generic Name Dose Route Start Last Admin Trade Name Freq PRN Reason Stop Dose Admin Acetaminophen 650 mg 04/26/18 14:33 Tylenol - PO Q4H PRN PAIN LEVEL 1-5 Docusate Sodium 100 mg 04/26/18 14:33 Colace - PO Q12H PRN CONSTIPATION Fentanyl 25 mcg 04/26/18 14:33 Sublimaze Injection - IVPUSH [id number] PRN PAIN-PACU ORDER X 4 DOSES ONLY Folic Acid 1 mg 04/27/18 10:00 Folic Acid - PO DAILY [facility] Ceftriaxone Sodium 1 gm/ 50 mls @ 100 mls/hr 04/27/18 10:00 Dextrose IVPB DAILY [facility] Protocol Oxycodone HCl 5 mg 04/26/18 14:33 04/26/18 17:14 Roxicodone - PO 5 mg Q6H PRN Administration PAIN LEVEL 6-10 Home Medications Medication Instructions Recorded Apixaban [Eliquis] 2.5 mg PO BID 04/25/18 Aspirin [Adult Aspirin] 81 mg PO DAILY 04/25/18 Calcium Acetate [Phoslo -] 667 mg PO TIDCM 04/25/18 Cinacalcet HCl [Sensipar] 30 mg PO DAILY 04/25/18 Folic AC/Vit Bcomp,C/Zn/Vit D3 1 each PO DAILY 04/25/18 [Dialyvite 800-Ultra D Tablet] Microbiology 04/25/18 00:51 Blood - Peripheral Venous Blood Culture - Preliminary NO GROWTH OBTAINED AFTER 24 HOURS, INCUBATION TO CONTINUE FOR 4 DAYS. 04/25/18 00:51 Blood - Peripheral Venous Blood Culture - Preliminary NO GROWTH OBTAINED AFTER 24 HOURS, INCUBATION TO CONTINUE FOR 4 DAYS. ASSESSMENT AND PLAN: Patient is a 67 y/o man with h/o HTN, HLD, afib s/p PPM , schizophrenia. MSSA bactreremia , endocarditis , chronic R shoulder pain ,swelling and prostate CA s /p seed implant who presented with worsening R shoulder pain and swelling. # Acute R shoulder pain due to right shoulder septic joint; s/p arthroscopy with washout and debridement by . On Ceftriaxone and Vanco.level is pending # ESRD: ON HD MWF continue # On eliquis and ASA at home. Unclear why. will d/w nephro . No documentation is noted. SCDS for now
[2018-04-27] MEDS: oxyCODONE HCL 5 MG TABLET PO PRN ×4 (05:26→23:25)
[2018-04-27 06:06] LABS: HBSAG SCREEN Negative (Negative); HEP B CORE AB, TOT Negative (Negative)
[2018-04-27] MEDS ORDERED: cefTRIAXone SODIUM 1 GM VIAL ONE (09:50)
[2018-04-27] MEDS ORDERED: DEXTROSE 5%-WATER - 50 ML IVPB ONE (09:50)
[2018-04-27] MEDS: FOLIC ACID 1 MG TABLET (FP) PO SCH (09:51)
[2018-04-27] MEDS: CEFTRIAXONE 1 GM in DEXTROSE 5%-WATER - 50 ML IVPB SCH (09:52)
--- NOTE | 2018-04-27 10:44 | PN ---
Progress Note (short form) - Note Progress Note: Anesthesia POD#1 S/P Right Shoulder Arthroscopy with Debridement under GA VSS,No N/V,pain is bearable. Ellen Salazar MD.
--- NOTE | 2018-04-27 11:23 | PN ---
Progress Note (short form) - Note Progress Note: Ortho Pt seen and examined s/p right shoulder arthroscopy with washout and I &D pod #1 Selected Entries 04/27/18 02:00 Temperature 99.2 F Pulse Rate 88 Respiratory 20 Rate Blood Pressure 148/96 Laboratory Tests 04/25/18 04/26/18 07:45 08:00 WBC 5.0 Hgb 9.6 L Hct 29.2 L RDW 17.2 H Plt Count 362 dressing slightly saturated, minimal blody drainage, good rom of elbow, nvi cultures pending a/p drain removed sterile pressure dressing applied abx as per ID pain control f/u cultures d/w Dr. Smith
--- NOTE | 2018-04-27 13:02 | PN ---
Progress Note, Physician History of Present Illness: POD #1 washout R shoulder Reports less R shoulder pain Temps down Remains afebrile Cultures pending - Current Medication List Current Medications: Active Medications Acetaminophen (Tylenol -) 650 mg PO Q4H PRN PRN Reason: PAIN LEVEL 1-5 Docusate Sodium (Colace -) 100 mg PO Q12H PRN PRN Reason: CONSTIPATION Fentanyl (Sublimaze Injection -) 25 mcg IVPUSH [id number] PRN PRN Reason: PAIN-PACU ORDER X 4 DOSES ONLY Folic Acid (Folic Acid -) 1 mg PO DAILY [facility] Last Admin: 04/27/18 09:51 Dose: 1 mg Ceftriaxone Sodium 1 gm/ (Dextrose) 50 mls @ 100 mls/hr IVPB DAILY [facility]; Protocol Last Admin: 04/27/18 09:52 Dose: 100 mls/hr Oxycodone HCl (Roxicodone -) 5 mg PO Q6H PRN PRN Reason: PAIN LEVEL 6-10 Last Admin: 04/27/18 11:40 Dose: 5 mg - Objective Vital Signs: Vital Signs Temperature 99.2 F 04/27/18 08:00 Pulse Rate 102 H 04/27/18 08:00 Respiratory Rate 20 04/27/18 08:00 Blood Pressure 135/77 04/27/18 08:00 O2 Sat by Pulse Oximetry (%) 99 04/27/18 09:00 Constitutional: Yes: No Distress Eyes: Yes: Conjunctiva Clear Cardiovascular: Yes: Regular Rate and Rhythm, S1, S2 Respiratory: Yes: CTA Bilaterally Gastrointestinal: Yes: Normal Bowel Sounds. No: Tenderness Extremities: Yes: Other (decreased swelling R shoulder) Labs: CBC, BMP 04/26/18 08:00 04/26/18 08:00 INR, PTT INR 1.46 (0.82-1.09) H 04/25/18 00:53 Assessment/Plan POD #1 I&D R shoulder R/O septic arthritis R shoulder Sepsis secondary to infected shoulder ESRD Await c/s Continue ceftriaxone Redose vancomycin Check random vancomycin level at HD am Ortho follow up
[2018-04-27] MEDS ORDERED: VANCOMYCIN 1,000 MG in DEXTROSE 5%-WATER - 250 ML IVPB ONE (14:00)
--- NOTE | 2018-04-27 14:46 | PN ---
Progress Note, Physician Chief Complaint: 67 y/o male with Right Septic arthritis of shoulder, s/p aspiration. Has ESRD on HD. Last HD yesterday. Abx per ID services. Will have next HD tomorrow. - Current Medication List Current Medications: Active Medications Acetaminophen (Tylenol -) 650 mg PO Q4H PRN PRN Reason: PAIN LEVEL 1-5 Apixaban (Eliquis -) 2.5 mg PO BID [facility] Docusate Sodium (Colace -) 100 mg PO Q12H PRN PRN Reason: CONSTIPATION Fentanyl (Sublimaze Injection -) 25 mcg IVPUSH [id number] PRN PRN Reason: PAIN-PACU ORDER X 4 DOSES ONLY Folic Acid (Folic Acid -) 1 mg PO DAILY [facility] Last Admin: 04/27/18 09:51 Dose: 1 mg Ceftriaxone Sodium 1 gm/ (Dextrose) 50 mls @ 100 mls/hr IVPB DAILY [facility]; Protocol Last Admin: 04/27/18 09:52 Dose: 100 mls/hr Vancomycin HCl 1,000 mg/ (Dextrose) 250 mls @ 166.667 mls/hr IVPB ONCE ONE; Protocol Stop: 04/27/18 15:29 Oxycodone HCl (Roxicodone -) 5 mg PO Q6H PRN PRN Reason: PAIN LEVEL 6-10 Last Admin: 04/27/18 11:40 Dose: 5 mg - Objective Vital Signs: Vital Signs Temperature 99.2 F 04/27/18 08:00 Pulse Rate 102 H 04/27/18 08:00 Respiratory Rate 20 04/27/18 08:00 Blood Pressure 135/77 04/27/18 08:00 O2 Sat by Pulse Oximetry (%) 99 04/27/18 09:00 Constitutional: Yes: No Distress Eyes: Yes: EOM Intact HENT: Yes: Normocephalic Neck: Yes: Decreased ROM Cardiovascular: Yes: Regular Rate and Rhythm, S1, S2 Respiratory: Yes: CTA Bilaterally, Diminished Gastrointestinal: Yes: Normal Bowel Sounds, Soft Genitourinary: No: CVA Tenderness - Left, CVA Tenderness - Right Extremities: Yes: Other (Rt shoulder splinted) Labs: CBC, BMP 04/26/18 08:00 04/26/18 08:00 INR, PTT INR 1.46 (0.82-1.09) H 04/25/18 00:53 Problem List - Problems (1) Anemia of renal disease Code(s): D63.1 - ANEMIA IN CHRONIC KIDNEY DISEASE (2) ESRD (end stage renal disease) on dialysis Code(s): N18.6 - END STAGE RENAL DISEASE; Z99.2 - DEPENDENCE ON RENAL DIALYSIS (3) Septic joint Code(s): M00.9 - PYOGENIC ARTHRITIS, UNSPECIFIED Qualifiers: Septic arthritis location: shoulder Septic arthritis organism: due to unspecified organism Laterality: right Qualified Code(s): M00.9 - Pyogenic arthritis, unspecified (4) Hyperlipidemia Code(s): E78.5 - HYPERLIPIDEMIA, UNSPECIFIED (5) Hypertension Code(s): I10 - ESSENTIAL (PRIMARY) HYPERTENSION (6) Hypothyroid Code(s): E03.9 - HYPOTHYROIDISM, UNSPECIFIED Assessment/Plan Patient is a 67 year old man with ESRD (M,W,F) on HD, HTN, endocarditis and schizophrenia with right shoulder pain and swelling. The patient has Septic arthritis. On IV Abx. Next HD in AM. Will follow with you. Malorie Wells MD
--- NOTE | 2018-04-27 15:38 | PN ---
<Allyson Loredo - Last Filed: 04/27/18 17:16> Physical Exam: SUBJECTIVE: Patient seen and examined at bedside. Overnight, pt c/o continued pain in R shoulder; received roxicodone 5mg x 1. Today, pt states that he is "feeling as well as he can." Resting in bed. Otherwise, denies LENZ, fever, chills , or changes in urinary or bowel function. OBJECTIVE: Vital Signs Period Temp Pulse Resp BP Sys/Sheridan Pulse Ox Last 24 Hr 98.6 F-99.2 F 71-102 18-21 135-156/77-96 99-100 GENERAL: The patient is resting in bed. awake, alert, and fully oriented, in no acute distress. HEAD: Normal with no signs of trauma. EYES: PERRL, extraocular movements intact, sclera anicteric, conjunctiva clear. ENT: Ears normal, nares patent, oropharynx clear without exudates, moist mucous membranes. NECK: Trachea midline, supple. LUNGS: Breath sounds equal, clear to auscultation bilaterally, no wheezes, no crackles. +poor inspiratory effort HEART: Regular rate and rhythm, S1, S2 without murmur, rub or gallop. ABDOMEN: Soft, nontender, nondistended, normoactive bowel sounds, no guarding, no rebound EXTREMITIES: 2+ pt pulses, warm. +R shoulder - with pressure dressing. +RUE sling NEUROLOGICAL: able to move lower extremities. RUE with decreased ROM PSYCH: Normal mood, normal affect. SKIN: Warm, dry, normal turgor Laboratory Results - last 24 hr 04/26/18 04/26/18 08:30 18:20 Random Vancomycin 13.82 Hepatitis A Ab Total Negative Hep Bs Antigen Negative Hep Bs Antibody Non reactive Hep B Core Total Ab Negative Active Medications Generic Name Dose Route Start Last Admin Trade Name Freq PRN Reason Stop Dose Admin Acetaminophen 650 mg 04/26/18 14:33 Tylenol - PO Q4H PRN PAIN LEVEL 1-5 Apixaban 2.5 mg 04/27/18 22:00 Eliquis - PO BID PANTERA Docusate Sodium 100 mg 04/26/18 14:33 Colace - PO Q12H PRN CONSTIPATION Epoetin Chucky 10,000 unit 04/28/18 14:47 Procrit - SQ 04/28/18 14:48 ONCE ONE Fentanyl 25 mcg 04/26/18 14:33 Sublimaze Injection - IVPUSH [id number] PRN PAIN-PACU ORDER X 4 DOSES ONLY Folic Acid 1 mg 04/27/18 10:00 04/27/18 09:51 Folic Acid - PO 1 mg DAILY PANTERA Administration Ceftriaxone Sodium 1 gm/ 50 mls @ 100 mls/hr 04/27/18 10:00 04/27/18 09:52 Dextrose IVPB 100 mls/hr DAILY [facility] Administration Protocol Oxycodone HCl 5 mg 04/26/18 14:33 04/27/18 11:40 Roxicodone - PO 5 mg Q6H PRN Administration PAIN LEVEL 6-10 Testing 04/25/18: Duplex RUE: nonocclusive thrombus in the R internal jugular vein. The remainder of the examination appears unremarkable. 04/25/18: R Shoulder XR: official report pending 04/25/18: CXR: no evidence of active pulmonary disease, no evidence of pneumothorax 04/25/18: CT upper extremity w/o contrast: findings are most consistent with septic arthritis and adjacent osteomyeliis. there is a very large joint effusion and fluid in the area of the shoulder. small pleural effusion. additional imaging can be obtained with MRI. ASSESSMENT/PLAN: 67 y/o M w/ PMH ESRD on HD who comes into the ED c/o right arm swelling, erythema, pain and fever. #Right shoulder pain likely 2/2 septic arthritis -s/p R shoulder arthroscopy with washout and debridement (PO Day 1) -f/u gram stain, culture, sensitivity -rocephin 1g IVPB qd (today is Day 3) -Random vanco level 13.82 ; vanco redosing -Blood cx (-) 48 hrs -oxycodone 5mg PO q6h PRN -continued ortho follow up -continue sling #Hx lupus anticoagulant +, h/o Afib -today pt started back on eliquis 2.5mg PO BID -as per pt, last took eliquis one week prior to admission #RUE US showing right IJ thrombus -pt started back on eliquis 2.5mg PO BID -asa 81mg PO qd -evaluated by surgery, no need for intervention #ESRD on HD -for next dialysis session tomorrow -Nephro- Dr. Hernández #FEN -no fluids indicated; on dialysis avoid fluid overload -lytes WNL, replete PRN -sodium controlled diet #PPX SCD's, on eliquis #Dispo -continue to monitor on med surg Visit type - Emergency Visit Emergency Visit: No - New Patient This patient is new to me today: No - Critical Care Critical Care patient: No <Katrin Juan - Last Filed: 04/27/18 19:19> Physical Exam: Patient is comfortable, s/p arthroscopy due to having a septic joint. on IV antibiotic Rocephin continue.
[2018-04-27] MEDS: APIXABAN 2.5 MG TABLET PO SCH (21:23)
[2018-04-28] MEDS: oxyCODONE HCL 5 MG TABLET PO PRN ×3 (05:35→18:23)
[2018-04-28] MEDS ORDERED: cefTRIAXone SODIUM 1 GM VIAL ONE (09:53)
[2018-04-28] MEDS ORDERED: DEXTROSE 5%-WATER - 50 ML IVPB ONE (09:53)
[2018-04-28] MEDS: FOLIC ACID 1 MG TABLET (FP) PO SCH (09:54)
[2018-04-28] MEDS: APIXABAN 2.5 MG TABLET PO SCH ×2 (09:59→21:43)
[2018-04-28] MEDS: CEFTRIAXONE 1 GM in DEXTROSE 5%-WATER - 50 ML IVPB SCH (09:59)
--- NOTE | 2018-04-28 10:48 | PN ---
Progress Note (short form) - Note Progress Note: Ortho Pt seen and examined s/p right shoulder arthroscopy with washout and I &D pod #2 - seen in dialysis Selected Entries 04/28/18 06:00 Temperature 99.6 F Pulse Rate 100 H Respiratory 20 Rate Blood Pressure 102/72 Laboratory Tests 04/26/18 08:00 WBC 5.0 Hgb 9.6 L Hct 29.2 L Plt Count 362 dressing c/d/i, minimal bloody drainage, good rom of elbow, nvi cultures pending a/p abx as per ID pain control ROM exercises f/u cultures will follow
--- NOTE | 2018-04-28 10:55 | PN ---
Progress Note, Physician Chief Complaint: The patient seen in his room. Has significant right shoulder pain. 67 y/o male with Right Septic arthritis of shoulder, s/p aspiration. Has ESRD on HD. For HD today. Abx per ID services. The patient says that he was on Eliquis at some pint, but stopped on his own. No details available as to who started it, or for what. The current admission EKD shows that he is in Sinus rhythm. - Current Medication List Current Medications: Active Medications Acetaminophen (Tylenol -) 650 mg PO Q4H PRN PRN Reason: PAIN LEVEL 1-5 Apixaban (Eliquis -) 2.5 mg PO BID [facility] Last Admin: 04/28/18 09:59 Dose: Not Given Docusate Sodium (Colace -) 100 mg PO Q12H PRN PRN Reason: CONSTIPATION Epoetin Chucky (Procrit -) 10,000 unit SQ ONCE ONE Stop: 04/28/18 11:01 Fentanyl (Sublimaze Injection -) 25 mcg IVPUSH [id number] PRN PRN Reason: PAIN-PACU ORDER X 4 DOSES ONLY Folic Acid (Folic Acid -) 1 mg PO DAILY [facility] Last Admin: 04/28/18 09:54 Dose: 1 mg Ceftriaxone Sodium 1 gm/ (Dextrose) 50 mls @ 100 mls/hr IVPB DAILY [facility]; Protocol Last Admin: 04/28/18 09:59 Dose: 100 mls/hr Oxycodone HCl (Roxicodone -) 5 mg PO Q6H PRN PRN Reason: PAIN LEVEL 6-10 Last Admin: 04/28/18 05:35 Dose: 5 mg - Objective Vital Signs: Vital Signs Temperature 99.6 F 04/28/18 06:00 Pulse Rate 100 H 04/28/18 06:00 Respiratory Rate 20 04/28/18 06:00 Blood Pressure 102/72 04/28/18 06:00 O2 Sat by Pulse Oximetry (%) 99 04/27/18 20:14 Constitutional: Yes: Well Nourished, Mild Distress HENT: Yes: Normocephalic Neck: Yes: Trachea Midline Cardiovascular: Yes: Regular Rate and Rhythm, S1, S2 Respiratory: Yes: CTA Bilaterally, Diminished Gastrointestinal: Yes: Normal Bowel Sounds, Soft Genitourinary: No: CVA Tenderness - Left, CVA Tenderness - Right Extremities: Yes: Other (Swollen right shoulder. dressing in place. tender.) Labs: CBC, BMP 04/26/18 08:00 04/26/18 08:00 INR, PTT INR 1.46 (0.82-1.09) H 04/25/18 00:53 Problem List - Problems (1) Anemia of renal disease Code(s): D63.1 - ANEMIA IN CHRONIC KIDNEY DISEASE (2) ESRD (end stage renal disease) on dialysis Code(s): N18.6 - END STAGE RENAL DISEASE; Z99.2 - DEPENDENCE ON RENAL DIALYSIS (3) Septic joint Code(s): M00.9 - PYOGENIC ARTHRITIS, UNSPECIFIED Qualifiers: Qualified Code(s): M00.9 - Pyogenic arthritis, unspecified (4) Hyperlipidemia Code(s): E78.5 - HYPERLIPIDEMIA, UNSPECIFIED (5) Hypertension Code(s): I10 - ESSENTIAL (PRIMARY) HYPERTENSION (6) Hypothyroid Code(s): E03.9 - HYPOTHYROIDISM, UNSPECIFIED Assessment/Plan Patient is a 67 year old man with ESRD (M,W,F) on HD, HTN, endocarditis and schizophrenia with right shoulder pain and swelling. The patient has Septic arthritis. On IV Abx. HD today in the acute unit. Orders written and reviewed with the RN. ? Cardilogclara renae to assess the need for anticoagulation. Thanks you. Malorie Wells MD
[2018-04-28] MEDS ORDERED: EPOETIN ALFA 10,000 UNIT/1 ML VIAL SQ ONE (11:00)
[2018-04-28 11:24] LABS: BASO % 0.6 % (0-2.0); EOS % 7.9 % (0-4.5); HEMATOCRIT 26.2 % (35.4-49); HEMOGLOBIN 8.7 GM/dL (11.7-16.9); LYMPH % 10.8 % (8-40); MCH 30.6 pg (25.7-33.7); MCHC 33.3 g/dl (32.0-35.9); MEAN PLT VOLUME 6.7 fl (7.5-11.1); MONO % 10.5 % (3.8-10.2); NEUT % 70.2 % (42.8-82.8); PLATELET COUNT 293 K/MM3 (134-434); RBC 2.85 M/mm3 (4.00-5.60); RDW 16.7 % (11.9-15.9); WHITE BLOOD COUNT 5.7 K/mm3 (4.0-10.0)
[2018-04-28 12:20] LABS: ANION GAP 10 (8-16); BLOOD UREA NITROGEN 50 mg/dL (7-18); CALCIUM 9.1 mg/dL (8.5-10.1); CHLORIDE 96 mmol/L (98-107); CO2 28 mmol/L (21-32); GLUCOSE,RANDOM 73 mg/dL (74-106); POTASSIUM 4.8 mmol/L (3.5-5.1); SODIUM 134 mmol/L (136-145)
[2018-04-28 13:05] LABS: CREATININE 7.5 mg/dL (0.7-1.3)
--- NOTE | 2018-04-28 14:43 | PN ---
<Allyson Loredo - Last Filed: 04/28/18 16:52> Physical Exam: SUBJECTIVE: Patient seen and examined at bedside. Overnight, pt afebrile. Refusing eliquis and arm sling. Received one dose of roxicodone. Today, pt states that he feels "as well as he can." With improved ROM in RUE. Denies LENZ, fever, chills, SOB, or changes in urinary or bowel function. OBJECTIVE: Vital Signs Period Temp Pulse Resp BP Sys/Sheridan Pulse Ox Last 24 Hr 98 F-99.6 F 79-110 18-20 101-139/49-98 99-100 GENERAL: The patient is resting comfortably. awake, alert, and fully oriented, in no acute distress. HEAD: Normal with no signs of trauma. EYES: PERRL, extraocular movements intact, sclera anicteric, conjunctiva clear. No ptosis. ENT: Ears normal, nares patent, oropharynx clear without exudates, moist mucous membranes. NECK: Trachea midline, supple. LUNGS: Breath sounds equal, clear to auscultation bilaterally, no wheezes, no crackles, no accessory muscle use. HEART: Regular rate and rhythm- in sinus , S1, S2 without murmur, rub or gallop. ABDOMEN: Soft, nontender, nondistended, normoactive bowel sounds, no guarding EXTREMITIES: 2+ pt pulses, warm, well-perfused, no edema. +R shoulder- wrapped, pressure dressing NEUROLOGICAL: Cranial nerves II through XII grossly intact. +decreased ROM in RUE PSYCH: Normal mood, normal affect. SKIN: Warm, dry, normal turgor, no rashes or lesions noted Laboratory Tests 04/26/18 04/28/18 04/28/18 08:30 10:35 10:35 WBC 5.7 Hgb 8.7 L Hct 26.2 L Plt Count 293 Creatinine Random Vancomycin 22.7 Hepatitis A Ab Total Negative Hep Bs Antigen Negative Hep Bs Antibody Non reactive Hep B Core Total Ab Negative HCV Quantitation Hcv not detected Hepatitis C RNA TNP 04/28/18 10:35 Plt Count Sodium 134 L Potassium 4.8 D Chloride 96 L Carbon Dioxide 28 BUN 50 H Creatinine 7.5 H* Hep Bs Antigen Active Medications Generic Name Dose Route Start Last Admin Trade Name Freq PRN Reason Stop Dose Admin Acetaminophen 650 mg 04/26/18 14:33 Tylenol - PO Q4H PRN PAIN LEVEL 1-5 Apixaban 2.5 mg 04/27/18 22:00 04/28/18 09:59 Eliquis - PO Not Given BID PANTERA Docusate Sodium 100 mg 04/26/18 14:33 Colace - PO Q12H PRN CONSTIPATION Fentanyl 25 mcg 04/26/18 14:33 Sublimaze Injection - IVPUSH [id number] PRN PAIN-PACU ORDER X 4 DOSES ONLY Folic Acid 1 mg 04/27/18 10:00 04/28/18 09:54 Folic Acid - PO 1 mg DAILY [facility] Administration Ceftriaxone Sodium 1 gm/ 50 mls @ 100 mls/hr 04/27/18 10:00 04/28/18 09:59 Dextrose IVPB 100 mls/hr DAILY [facility] Administration Protocol Oxycodone HCl 5 mg 04/26/18 14:33 04/28/18 11:20 Roxicodone - PO 5 mg Q6H PRN Administration PAIN LEVEL 6-10 Testing 04/25/18: Duplex RUE: nonocclusive thrombus in the R internal jugular vein. The remainder of the examination appears unremarkable. 04/25/18: R Shoulder XR: official report pending 04/25/18: CXR: no evidence of active pulmonary disease, no evidence of pneumothorax 04/25/18: CT upper extremity w/o contrast: findings are most consistent with septic arthritis and adjacent osteomyeliis. there is a very large joint effusion and fluid in the area of the shoulder. small pleural effusion. additional imaging can be obtained with MRI. Microbiology 04/26/18 13:24 Body Fluid - Other Gram Stain - Final 04/26/18 09:03 Synovial Fluid - Shoulder Gram Stain - Final 04/26/18 13:24 Body Fluid - Other Body Fluid Culture - Preliminary NO AEROBIC GROWTH, 24 HRS 04/25/18 00:51 Blood - Peripheral Venous Blood Culture - Preliminary NO GROWTH OBTAINED AFTER 72 HOURS, INCUBATION TO CONTINUE FOR 2 DAYS. 04/25/18 00:51 Blood - Peripheral Venous Blood Culture - Preliminary NO GROWTH OBTAINED AFTER 72 HOURS, INCUBATION TO CONTINUE FOR 2 DAYS. ASSESSMENT/PLAN: 67 y/o M w/ PMH ESRD on HD who comes into the ED c/o right arm swelling, erythema, pain and fever. #Right shoulder pain likely 2/2 septic arthritis -s/p R shoulder arthroscopy with washout and debridement (PO Day 2) -f/u gram stain, culture, sensitivity; no aerobic growth 24hrs -rocephin 1g IVPB qd (today is Day 4) -vanco redosing, follow level in AM -Blood cx (-) 72 hrs -oxycodone 5mg PO q6h PRN -continued ortho follow up -continue sling #Hx lupus anticoagulant +, h/o Afib -pt on eliquis 2.5mg PO BID - however pt has been refusing -pt unaware of dosage, indication of his eliquis -calls placed to pt pharmacy, case d/w Dr. Esquivel one of past providers -calls placed to [facility] ; forms faxed however does not include info on eliquis nor dosage #RUE US showing right IJ thrombus -eliquis 2.5mg PO BID -asa 81mg PO qd -evaluated by surgery, no need for intervention #ESRD on HD -for dialysis today -Nephro- Dr. Hernández #FEN -no fluids indicated; on dialysis avoid fluid overload -lytes WNL, replete PRN -sodium controlled diet #PPX SCD's, on eliquis #Dispo -continue to monitor on med surg Visit type - Emergency Visit Emergency Visit: No - New Patient This patient is new to me today: No - Critical Care Critical Care patient: No <Katrin Juan - Last Filed: 04/28/18 19:39> Physical Exam: Feeling better with no acute distress. Continue current therapy. Agree with the resident's note. Vital Signs Temperature 98.4 F 04/28/18 10:30 Pulse Rate 94 H 04/28/18 13:40 Respiratory Rate 18 04/28/18 13:40 Blood Pressure 117/52 04/28/18 13:40 O2 Sat by Pulse Oximetry (%) 100 04/28/18 09:00 CBCD WBC 5.7 K/mm3 (4.0-10.0) 04/28/18 10:35 RBC 2.85 M/mm3 (4.00-5.60) L 04/28/18 10:35 Hgb 8.7 GM/dL (11.7-16.9) L 04/28/18 10:35 Hct 26.2 % (35.4-49) L 04/28/18 10:35 MCV 92.0 fl (80-96) 04/28/18 10:35 MCHC 33.3 g/dl (32.0-35.9) 04/28/18 10:35 RDW 16.7 % (11.9-15.9) H 04/28/18 10:35 Plt Count 293 K/MM3 (134-434) 04/28/18 10:35 MPV 6.7 fl (7.5-11.1) L 04/28/18 10:35 CMP Sodium 134 mmol/L (136-145) L 04/28/18 10:35 Potassium 4.8 mmol/L (3.5-5.1) D 04/28/18 10:35 Chloride 96 mmol/L (98-107) L 04/28/18 10:35 Carbon Dioxide 28 mmol/L (21-32) 04/28/18 10:35 Anion Gap 10 (8-16) 04/28/18 10:35 BUN 50 mg/dL (7-18) H 04/28/18 10:35 Creatinine 7.5 mg/dL (0.7-1.3) H* 04/28/18 10:35 Creat Clearance w eGFR 7.29 (>60) 04/28/18 10:35 Random Glucose 73 mg/dL (74-106) L D 04/28/18 10:35 Calcium 9.1 mg/dL (8.5-10.1) 04/28/18 10:35 Total Bilirubin 0.6 mg/dL (0.2-1.0) 04/25/18 07:45 AST 9 U/L (15-37) L D 04/25/18 07:45 ALT 11 U/L (12-78) L D 04/25/18 07:45 Alkaline Phosphatase 125 U/L (45-117) H 04/25/18 07:45 Total Protein 6.2 g/dl (6.4-8.2) L 04/25/18 07:45 Albumin 2.4 g/dl (3.4-5.0) L 04/25/18 07:45 CARDIAC ENZYMES Troponin I 0.05 ng/ml (0.00-0.05) D 04/25/18 07:45 Current Medications Generic Name Dose Route Start Last Admin Trade Name Jim PRN Reason Stop Dose Admin Acetaminophen 650 mg 04/26/18 14:33 Tylenol - PO Q4H PRN PAIN LEVEL 1-5 Apixaban 2.5 mg 04/27/18 22:00 04/28/18 09:59 Eliquis - PO Not Given BID PANTERA Docusate Sodium 100 mg 04/26/18 14:33 Colace - PO Q12H PRN CONSTIPATION Fentanyl 25 mcg 04/26/18 14:33 Sublimaze Injection - IVPUSH [id number] PRN PAIN-PACU ORDER X 4 DOSES ONLY Folic Acid 1 mg 04/27/18 10:00 04/28/18 09:54 Folic Acid - PO 1 mg DAILY PANTERA Administration Ceftriaxone Sodium 1 gm/ 50 mls @ 100 mls/hr 04/27/18 10:00 04/28/18 09:59 Dextrose IVPB 100 mls/hr DAILY PANTERA Administration Protocol Oxycodone HCl 5 mg 04/26/18 14:33 04/28/18 18:23 Roxicodone - PO 5 mg Q6H PRN Administration PAIN LEVEL 6-10 Home Medications Medication Instructions Recorded Apixaban [Eliquis] 2.5 mg PO BID 04/25/18 Aspirin [Adult Aspirin] 81 mg PO DAILY 04/25/18 Calcium Acetate [Phoslo -] 667 mg PO TIDCM 04/25/18 Cinacalcet HCl [Sensipar] 30 mg PO DAILY 04/25/18 Folic AC/Vit Bcomp,C/Zn/Vit D3 1 each PO DAILY 04/25/18 [Dialyvite 800-Ultra D Tablet]
--- NOTE | 2018-04-28 15:15 | PATH ---
Surgical Pathology Report Patient Name: REJI SAMPSON Med. Rec. #: [id number] /Age/Gender: 1950 (Age: 67) / M Account: [id number] Location: [address] [place] [address]/[facility] Taken: 04/26/2018 Received: 04/27/2018 Reported: 04/28/2018 Physicians: Maria Elena Tomlinson M.D. Specimen(s) Received RIGHT SHOULDER SHAVINGS Clinical History Septic right shoulder Final Diagnosis RIGHT SHOULDER SHAVINGS: FRAGMENTS OF SYNOVIAL TISSUE WITH SEVERE ACUTE INFLAMMATION AND GRANULATION TISSUE FORMATION. CLUSTERS OF ACUTE INFLAMMATORY AND FIBRINOUS EXUDATE. SEPARATE FIBROCARTILAGINOUS TISSUE WITH DEGENERATIVE CHANGE. Electronically Signed Patric Ferro M.D. Gross Description Received in formalin, labeled "right shoulder shavings," is a 6.0 x 4.5 x 1.0 cm. aggregate of méndez-yellow soft tissue fragments. A civil rights representative portion is submitted in one cassette. /04/27/2018 [facility]04/27/2018
--- NOTE | 2018-04-28 15:52 | PN ---
Progress Note, Physician History of Present Illness: POD #2 washout R shoulder Reports less R shoulder pain Temps down Remains afebrile Cultures no growth - Current Medication List Current Medications: Active Medications Acetaminophen (Tylenol -) 650 mg PO Q4H PRN PRN Reason: PAIN LEVEL 1-5 Apixaban (Eliquis -) 2.5 mg PO BID [facility] Last Admin: 04/28/18 09:59 Dose: Not Given Docusate Sodium (Colace -) 100 mg PO Q12H PRN PRN Reason: CONSTIPATION Fentanyl (Sublimaze Injection -) 25 mcg IVPUSH [id number] PRN PRN Reason: PAIN-PACU ORDER X 4 DOSES ONLY Folic Acid (Folic Acid -) 1 mg PO DAILY [facility] Last Admin: 04/28/18 09:54 Dose: 1 mg Ceftriaxone Sodium 1 gm/ (Dextrose) 50 mls @ 100 mls/hr IVPB DAILY [facility]; Protocol Last Admin: 04/28/18 09:59 Dose: 100 mls/hr Oxycodone HCl (Roxicodone -) 5 mg PO Q6H PRN PRN Reason: PAIN LEVEL 6-10 Last Admin: 04/28/18 11:20 Dose: 5 mg - Objective Vital Signs: Vital Signs Temperature 98.4 F 04/28/18 10:30 Pulse Rate 94 H 04/28/18 13:40 Respiratory Rate 18 04/28/18 13:40 Blood Pressure 117/52 04/28/18 13:40 O2 Sat by Pulse Oximetry (%) 100 04/28/18 09:00 Constitutional: Yes: No Distress Eyes: Yes: Conjunctiva Clear Cardiovascular: Yes: Regular Rate and Rhythm, S1, S2 Respiratory: Yes: CTA Bilaterally Gastrointestinal: Yes: Normal Bowel Sounds, Soft. No: Tenderness Extremities: Yes: Other (decreased shoulder swelling tender to palp no erythema) Labs: CBC, BMP 04/28/18 10:35 04/28/18 10:35 INR, PTT INR 1.46 (0.82-1.09) H 04/25/18 00:53 Assessment/Plan POD #2 I&D R shoulder R/O septic arthritis R shoulder Sepsis secondary to infected shoulder ESRD Continue ceftriaxone . vancomycin theraputic Check random vancomycin level am Ortho follow up
[2018-04-29] MEDS: oxyCODONE HCL 5 MG TABLET PO PRN ×4 (05:19→23:22)
--- NOTE | 2018-04-29 10:32 | PN ---
Physical Exam: SUBJECTIVE: Patient seen and examined NO fever, swelling is better and RUE is improving OBJECTIVE: Vital Signs Temperature 98.2 F 04/29/18 05:21 Pulse Rate 100 H 04/29/18 05:21 Respiratory Rate 20 04/29/18 05:21 Blood Pressure 128/88 04/29/18 05:21 O2 Sat by Pulse Oximetry (%) 98 04/28/18 21:00 GENERAL: The patient is awake, alert, and fully oriented, in no acute distress. HEAD: Normal with no signs of trauma. EYES: PERRL, extraocular movements intact, sclera anicteric, conjunctiva clear. ENT: Ears normal, oropharynx clear without exudates, moist mucous membranes. NECK: Trachea midline, full range of motion, supple. LUNGS: Breath sounds equal, clear to auscultation bilaterally, no wheezes, no crackles, no accessory muscle use. HEART: Regular rate and rhythm, S1, S2 without murmur, rub or gallop. ABDOMEN: Soft, nontender, nondistended, normoactive bowel sounds, no guarding, no rebound, no hepatosplenomegaly, no masses. EXTREMITIES: 2+ pulses, RUE swollen , left positive for AV fisstula , +R shoulder is wrapped s/p arthroscopy NEUROLOGICAL: Cranial nerves II through XII grossly intact. Normal speech, gait is normal PSYCH: Normal mood, normal affect. SKIN: Warm, dry, normal turgor, no rashes or lesions noted CBCD WBC 5.7 K/mm3 (4.0-10.0) 04/28/18 10:35 RBC 2.85 M/mm3 (4.00-5.60) L 04/28/18 10:35 Hgb 8.7 GM/dL (11.7-16.9) L 04/28/18 10:35 Hct 26.2 % (35.4-49) L 04/28/18 10:35 MCV 92.0 fl (80-96) 04/28/18 10:35 MCHC 33.3 g/dl (32.0-35.9) 04/28/18 10:35 RDW 16.7 % (11.9-15.9) H 04/28/18 10:35 Plt Count 293 K/MM3 (134-434) 04/28/18 10:35 MPV 6.7 fl (7.5-11.1) L 04/28/18 10:35 CMP Sodium 134 mmol/L (136-145) L 04/28/18 10:35 Potassium 4.8 mmol/L (3.5-5.1) D 04/28/18 10:35 Chloride 96 mmol/L (98-107) L 04/28/18 10:35 Carbon Dioxide 28 mmol/L (21-32) 04/28/18 10:35 Anion Gap 10 (8-16) 04/28/18 10:35 BUN 50 mg/dL (7-18) H 04/28/18 10:35 Creatinine 7.5 mg/dL (0.7-1.3) H* 04/28/18 10:35 Creat Clearance w eGFR 7.29 (>60) 04/28/18 10:35 Random Glucose 73 mg/dL (74-106) L D 04/28/18 10:35 Calcium 9.1 mg/dL (8.5-10.1) 04/28/18 10:35 Total Bilirubin 0.6 mg/dL (0.2-1.0) 04/25/18 07:45 AST 9 U/L (15-37) L D 04/25/18 07:45 ALT 11 U/L (12-78) L D 04/25/18 07:45 Alkaline Phosphatase 125 U/L (45-117) H 04/25/18 07:45 Total Protein 6.2 g/dl (6.4-8.2) L 04/25/18 07:45 Albumin 2.4 g/dl (3.4-5.0) L 04/25/18 07:45 CARDIAC ENZYMES Troponin I 0.05 ng/ml (0.00-0.05) D 04/25/18 07:45 Current Medications Generic Name Dose Route Start Last Admin Trade Name Freq PRN Reason Stop Dose Admin Acetaminophen 650 mg 04/26/18 14:33 Tylenol - PO Q4H PRN PAIN LEVEL 1-5 Apixaban 2.5 mg 04/27/18 22:00 04/28/18 21:43 Eliquis - PO Not Given BID PANTERA Docusate Sodium 100 mg 04/26/18 14:33 Colace - PO Q12H PRN CONSTIPATION Fentanyl 25 mcg 04/26/18 14:33 Sublimaze Injection - IVPUSH [id number] PRN PAIN-PACU ORDER X 4 DOSES ONLY Folic Acid 1 mg 04/27/18 10:00 04/28/18 09:54 Folic Acid - PO 1 mg DAILY PANTERA Administration Ceftriaxone Sodium 1 gm/ 50 mls @ 100 mls/hr 04/27/18 10:00 04/28/18 09:59 Dextrose IVPB 100 mls/hr DAILY PANTERA Administration Protocol Oxycodone HCl 5 mg 04/26/18 14:33 04/29/18 05:19 Roxicodone - PO 5 mg Q6H PRN Administration PAIN LEVEL 6-10 Home Medications Medication Instructions Recorded Apixaban [Eliquis] 2.5 mg PO BID 04/25/18 Aspirin [Adult Aspirin] 81 mg PO DAILY 04/25/18 Calcium Acetate [Phoslo -] 667 mg PO TIDCM 04/25/18 Cinacalcet HCl [Sensipar] 30 mg PO DAILY 04/25/18 Folic AC/Vit Bcomp,C/Zn/Vit D3 1 each PO DAILY 04/25/18 [Dialyvite 800-Ultra D Tablet] 04/25/18 00:51 Blood - Peripheral Venous Blood Culture - Preliminary NO GROWTH OBTAINED AFTER 24 HOURS, INCUBATION TO CONTINUE FOR 4 DAYS. 04/25/18 00:51 Blood - Peripheral Venous Blood Culture - Preliminary NO GROWTH OBTAINED AFTER 24 HOURS, INCUBATION TO CONTINUE FOR 4 DAYS. ASSESSMENT AND PLAN: Patient is a 67 y/o man with h/o HTN, HLD, afib s/p PPM , schizophrenia. MSSA bactreremia , endocarditis , chronic R shoulder pain ,swelling and prostate CA s /p seed implant who presented with worsening R shoulder pain and swelling. # POD #3 s/p arthroscopy with washout and debridement by . for Acute R shoulder pain improved, continue Ceftriaxone and Vanco. # ESRD: ON HD MWF continue # On eliquis and ASA at home. Unclear why. will d/w nephro . No documentation is noted. DVT Px: Eliquis continue Visit type - Emergency Visit Emergency Visit: Yes ED Registration Date: 04/25/18 Care time: The patient presented to the Emergency Department on the above date and was hospitalized for further evaluation of their emergent condition. - New Patient This patient is new to me today: No - Critical Care Critical Care patient: No - Discharge Referral Referred to [facility] Med P.C[facility] No
[2018-04-29] MEDS ORDERED: PT OWN MED DRAWER 7, Y5N ONE ×2 (10:58→20:52)
[2018-04-29] MEDS ORDERED: cefTRIAXone SODIUM 1 GM VIAL ONE (10:59)
[2018-04-29] MEDS: CEFTRIAXONE 1 GM in DEXTROSE 5%-WATER - 50 ML IVPB SCH (11:04)
[2018-04-29] MEDS: APIXABAN 2.5 MG TABLET PO SCH ×2 (11:05→22:03)
[2018-04-29] MEDS: FOLIC ACID 1 MG TABLET (FP) PO SCH (11:05)
--- NOTE | 2018-04-29 12:12 | PN ---
Progress Note, Physician History of Present Illness: POD #3 washout R shoulder Reports less R shoulder pain, increased R forearm swelling Temps down Remains afebrile Cultures no growth - Current Medication List Current Medications: Active Medications Acetaminophen (Tylenol -) 650 mg PO Q4H PRN PRN Reason: PAIN LEVEL 1-5 Apixaban (Eliquis -) 2.5 mg PO BID [facility] Last Admin: 04/29/18 11:05 Dose: 2.5 mg Docusate Sodium (Colace -) 100 mg PO Q12H PRN PRN Reason: CONSTIPATION Fentanyl (Sublimaze Injection -) 25 mcg IVPUSH [id number] PRN PRN Reason: PAIN-PACU ORDER X 4 DOSES ONLY Folic Acid (Folic Acid -) 1 mg PO DAILY [facility] Last Admin: 04/29/18 11:05 Dose: 1 mg Ceftriaxone Sodium 1 gm/ (Dextrose) 50 mls @ 100 mls/hr IVPB DAILY [facility]; Protocol Last Admin: 04/29/18 11:04 Dose: 100 mls/hr Vancomycin HCl 1,000 mg/ (Dextrose) 250 mls @ 166.667 mls/hr IVPB ONCE ONE; Protocol Stop: 04/29/18 13:37 Oxycodone HCl (Roxicodone -) 5 mg PO Q6H PRN PRN Reason: PAIN LEVEL 6-10 Last Admin: 04/29/18 11:05 Dose: 5 mg - Objective Vital Signs: Vital Signs Temperature 98.2 F 04/29/18 05:21 Pulse Rate 100 H 04/29/18 05:21 Respiratory Rate 20 04/29/18 05:21 Blood Pressure 128/88 04/29/18 05:21 O2 Sat by Pulse Oximetry (%) 98 04/28/18 21:00 Constitutional: Yes: No Distress Eyes: Yes: Conjunctiva Clear Cardiovascular: Yes: Regular Rate and Rhythm, S1, S2 Respiratory: Yes: CTA Bilaterally Gastrointestinal: Yes: Normal Bowel Sounds, Soft Extremities: Yes: Other (R shoulder, forearm swelling) Labs: CBC, BMP 04/28/18 10:35 04/28/18 10:35 INR, PTT INR 1.46 (0.82-1.09) H 04/25/18 00:53 Assessment/Plan POD #3 I&D R shoulder R/O septic arthritis R shoulder Sepsis secondary to infected shoulder ESRD Continue ceftriaxone .Redose vancomycin Ortho follow up
--- NOTE | 2018-04-29 12:13 | PN ---
Progress Note (short form) - Note Progress Note: Renal follow up for ESRD on HD Pt seen and examined at the bedside no acute complaints denies any fever, chills no sob, chest pain has dressing on right shoulder s/p dialysis yesterday Vital Signs Temperature 98.2 F 04/29/18 05:21 Pulse Rate 100 H 04/29/18 05:21 Respiratory Rate 20 04/29/18 05:21 Blood Pressure 128/88 04/29/18 05:21 O2 Sat by Pulse Oximetry (%) 98 04/28/18 21:00 Intake & Output 04/26/18 04/27/18 04/28/18 04/29/18 23:59 23:59 23:59 23:59 Intake Total 4150 350 700 Output Total 0 0 Balance 4150 350 700 Weight 62.6 kg 63.106 kg NAD RRR CTA No Le edema CBC, BMP 04/28/18 10:35 04/28/18 10:35 Current Medications Acetaminophen (Tylenol -) 650 mg PO Q4H PRN PRN Reason: PAIN LEVEL 1-5 Apixaban (Eliquis -) 2.5 mg PO BID [facility] Last Admin: 04/29/18 11:05 Dose: 2.5 mg Docusate Sodium (Colace -) 100 mg PO Q12H PRN PRN Reason: CONSTIPATION Fentanyl (Sublimaze Injection -) 25 mcg IVPUSH [id number] PRN PRN Reason: PAIN-PACU ORDER X 4 DOSES ONLY Folic Acid (Folic Acid -) 1 mg PO DAILY [facility] Last Admin: 04/29/18 11:05 Dose: 1 mg Ceftriaxone Sodium 1 gm/ (Dextrose) 50 mls @ 100 mls/hr IVPB DAILY [facility]; Protocol Last Admin: 04/29/18 11:04 Dose: 100 mls/hr Vancomycin HCl 1,000 mg/ (Dextrose) 250 mls @ 166.667 mls/hr IVPB ONCE ONE; Protocol Stop: 04/29/18 13:37 Oxycodone HCl (Roxicodone -) 5 mg PO Q6H PRN PRN Reason: PAIN LEVEL 6-10 Last Admin: 04/29/18 11:05 Dose: 5 mg 67 year old man with ESRD (M,W,F) on HD, HTN, endocarditis and schizophrenia with right shoulder pain and swelling. #ESRD on Hd #Septic Shoulder #Anemia For next dialysis on Tuesday Continue Abx as per ID blood cultures drawn at dialysis prior to admission negative to date will continue DEMETRIS with HD Thank you Aquiles Marie DO
[2018-04-29] MEDS ORDERED: VANCOMYCIN 1 GM PREMIX - 1 GM/200 ML BAG IVPB ONE (14:00)
--- NOTE | 2018-04-29 14:08 | PN ---
Progress Note (short form) - Note Progress Note: Ortho Pt seen and examined s/p right shoulder arthroscopy with washout and I &D pod #3 Selected Entries 04/29/18 05:21 Temperature 98.2 F Pulse Rate 100 H Respiratory 20 Rate Blood Pressure 128/88 Laboratory Tests 04/28/18 10:35 WBC 5.7 Hgb 8.7 L Hct 26.2 L Plt Count 293 dressing c/d/i, no drainage, good rom of elbow, nvi cultures neg a/p abx as per ID pain control ROM exercises will follow
[2018-04-30] MEDS: oxyCODONE HCL 5 MG TABLET PO PRN ×3 (05:59→18:35)
[2018-04-30] MEDS ORDERED: cefTRIAXone SODIUM 1 GM VIAL ONE (10:06)
[2018-04-30] MEDS ORDERED: DEXTROSE 5%-WATER - 50 ML IVPB ONE (10:06)
[2018-04-30] MEDS: FOLIC ACID 1 MG TABLET (FP) PO SCH (10:15)
[2018-04-30] MEDS: CEFTRIAXONE 1 GM in DEXTROSE 5%-WATER - 50 ML IVPB SCH (10:15)
[2018-04-30] MEDS ORDERED: PT OWN MED DRAWER 7, Y5N ONE ×2 (11:19→12:37)
[2018-04-30] MEDS: APIXABAN 2.5 MG TABLET PO SCH ×2 (11:22→21:55)
--- NOTE | 2018-04-30 13:31 | PN ---
<Allyson Loredo - Last Filed: 04/30/18 18:21> Physical Exam: SUBJECTIVE: Patient seen and examined at bedside. Overnight, pt received tylenol 650mg x 1, roxicodone 5mg x1 for pain control. Today, pt states that he feels better. Using laptop with ease. Denies LENZ, fever, chills. OBJECTIVE: Vital Signs Period Temp Pulse Resp BP Sys/[place] Pulse Ox Last 24 Hr 97.1 F-98.4 F 108-113 17-20 99-149/55-89 98 GENERAL: The patient is awake, alert, and fully oriented, in no acute distress. HEAD: Normal with no signs of trauma. EYES: PERRL, extraocular movements intact, sclera anicteric, conjunctiva clear. ENT: Ears normal, nares patent, oropharynx clear without exudates, moist mucous membranes. NECK: Trachea midline, supple. LUNGS: Breath sounds equal, clear to auscultation bilaterally, no wheezes, no crackles, no accessory muscle use. HEART: +tachycardic rate and rhythm, S1, S2 without murmur, rub or gallop. ABDOMEN: Soft, nontender, nondistended, normoactive bowel sounds, no guarding EXTREMITIES: +R shoulder: still with edema, however improved. mild warmth. incision site clean. R forearm with resultant edema, however ROM improved able to abduct to 30'. lower ext: without edema or TTP NEUROLOGICAL: Cranial nerves II through XII grossly intact. Normal speech, gait not observed. PSYCH: Normal mood, normal affect. SKIN: Warm, dry, normal turgor, no rashes or lesions noted Active Medications Generic Name Dose Route Start Last Admin Trade Name Freq PRN Reason Stop Dose Admin Acetaminophen 650 mg 04/26/18 14:33 04/30/18 05:59 Tylenol - PO 650 mg Q4H PRN Administration PAIN LEVEL 1-5 Apixaban 2.5 mg 04/27/18 22:00 04/30/18 11:22 Eliquis - PO 2.5 mg BID PANTERA Administration Docusate Sodium 100 mg 04/26/18 14:33 Colace - PO Q12H PRN CONSTIPATION Fentanyl 25 mcg 04/26/18 14:33 Sublimaze Injection - IVPUSH [id number] PRN PAIN-PACU ORDER X 4 DOSES ONLY Folic Acid 1 mg 04/27/18 10:00 04/30/18 10:15 Folic Acid - PO 1 mg DAILY PANTERA Administration Ceftriaxone Sodium 1 gm/ 50 mls @ 100 mls/hr 04/27/18 10:00 04/30/18 10:15 Dextrose IVPB 100 mls/hr DAILY PANTERA Administration Protocol Oxycodone HCl 5 mg 04/29/18 18:06 04/30/18 12:28 Roxicodone - PO 5 mg Q6H PRN Administration PAIN LEVEL 7 - 10 Testing 04/25/18: Duplex RUE: nonocclusive thrombus in the R internal jugular vein. The remainder of the examination appears unremarkable. 04/25/18: R Shoulder XR: official report pending 04/25/18: CXR: no evidence of active pulmonary disease, no evidence of pneumothorax 04/25/18: CT upper extremity w/o contrast: findings are most consistent with septic arthritis and adjacent osteomyeliis. there is a very large joint effusion and fluid in the area of the shoulder. small pleural effusion. additional imaging can be obtained with MRI. Microbiology 04/26/18 13:24 Body Fluid - Other Gram Stain - Final 04/26/18 13:24 Body Fluid - Other Body Fluid Culture - Final NO GROWTH OF AEROBIC ORGANISMS AFTER 48 HOURS INCUBATION 04/26/18 09:03 Synovial Fluid - Shoulder Gram Stain - Final 04/26/18 09:03 Synovial Fluid - Shoulder Body Fluid Culture - Final NO GROWTH OF AEROBIC ORGANISMS AFTER 48 HOURS INCUBATION 04/25/18 00:51 Blood - Peripheral Venous Blood Culture - Final NO GROWTH AFTER 5 DAYS INCUBATION 04/25/18 00:51 Blood - Peripheral Venous Blood Culture - Final NO GROWTH AFTER 5 DAYS INCUBATION 04/26/18 13:24 Body Fluid - Other Anaerobic Culture - Preliminary No growth. 04/26/18 09:03 Synovial Fluid - Shoulder Anaerobic Culture - Preliminary No growth. ASSESSMENT/PLAN: 67 y/o M w/ PMH ESRD on HD who comes into the ED c/o right arm swelling, erythema, pain and fever. #Right shoulder pain likely 2/2 septic arthritis -s/p R shoulder arthroscopy with washout and debridement (PO Day 4) -gram stain, culture, blood cx (-) -rocephin 1g IVPB qd (today is Day 6) -oxycodone 5mg PO q6h PRN -continued ortho follow up #Hx lupus anticoagulant +, h/o Afib -pt on eliquis 2.5mg PO BID - recently compliant -pt unaware of dosage, indication of his eliquis -calls placed to pt pharmacy, case d/w Dr. Esquivel one of past providers -calls placed to [facility] ; forms faxed however does not include info on eliquis nor dosage #RUE US showing right IJ thrombus -eliquis 2.5mg PO BID -asa 81mg PO qd -evaluated by surgery, no need for intervention #ESRD on HD -for dialysis tomorrow -Nephro- Dr. Hernández #FEN -no fluids indicated; on dialysis avoid fluid overload -lytes WNL, replete PRN -sodium controlled diet #PPX SCD's, on eliquis #Dispo -continue to monitor on med surg -d/c planning , will need to talk to case folder tomorrow about VNS will need random vanco dose checked after dialysis (nephro) Visit type - Emergency Visit Emergency Visit: No - New Patient This patient is new to me today: No - Critical Care Critical Care patient: No <KaylacindyroseanneKatrin - Last Filed: 04/30/18 19:30> Physical Exam: Patient is comfortable but RUE is still swollen, possible discharge in am. Need home visiting nurse and patient is requesting to talk to social media marketing specialist. Vital Signs Temperature 98.4 F 04/30/18 09:24 Pulse Rate 99 H 04/30/18 14:13 Respiratory Rate 17 04/30/18 14:13 Blood Pressure 82/67 04/30/18 14:13 O2 Sat by Pulse Oximetry (%) 96 04/30/18 09:00 CBCD WBC 5.7 K/mm3 (4.0-10.0) 04/28/18 10:35 RBC 2.85 M/mm3 (4.00-5.60) L 04/28/18 10:35 Hgb 8.7 GM/dL (11.7-16.9) L 04/28/18 10:35 Hct 26.2 % (35.4-49) L 04/28/18 10:35 MCV 92.0 fl (80-96) 04/28/18 10:35 MCHC 33.3 g/dl (32.0-35.9) 04/28/18 10:35 RDW 16.7 % (11.9-15.9) H 04/28/18 10:35 Plt Count 293 K/MM3 (134-434) 04/28/18 10:35 MPV 6.7 fl (7.5-11.1) L 04/28/18 10:35 CMP Sodium 134 mmol/L (136-145) L 04/28/18 10:35 Potassium 4.8 mmol/L (3.5-5.1) D 04/28/18 10:35 Chloride 96 mmol/L (98-107) L 04/28/18 10:35 Carbon Dioxide 28 mmol/L (21-32) 04/28/18 10:35 Anion Gap 10 (8-16) 04/28/18 10:35 BUN 50 mg/dL (7-18) H 04/28/18 10:35 Creatinine 7.5 mg/dL (0.7-1.3) H* 04/28/18 10:35 Creat Clearance w eGFR 7.29 (>60) 04/28/18 10:35 Random Glucose 73 mg/dL (74-106) L D 04/28/18 10:35 Calcium 9.1 mg/dL (8.5-10.1) 04/28/18 10:35 Total Bilirubin 0.6 mg/dL (0.2-1.0) 04/25/18 07:45 AST 9 U/L (15-37) L D 04/25/18 07:45 ALT 11 U/L (12-78) L D 04/25/18 07:45 Alkaline Phosphatase 125 U/L (45-117) H 04/25/18 07:45 Total Protein 6.2 g/dl (6.4-8.2) L 04/25/18 07:45 Albumin 2.4 g/dl (3.4-5.0) L 04/25/18 07:45 CARDIAC ENZYMES Troponin I 0.05 ng/ml (0.00-0.05) D 04/25/18 07:45 Current Medications Generic Name Dose Route Start Last Admin Trade Name Freq PRN Reason Stop Dose Admin Acetaminophen 650 mg 04/26/18 14:33 04/30/18 05:59 Tylenol - PO 650 mg Q4H PRN Administration PAIN LEVEL 1-5 Apixaban 2.5 mg 04/27/18 22:00 04/30/18 11:22 Eliquis - PO 2.5 mg BID PANTERA Administration Docusate Sodium 100 mg 04/26/18 14:33 Colace - PO Q12H PRN CONSTIPATION Fentanyl 25 mcg 04/26/18 14:33 Sublimaze Injection - IVPUSH [id number] PRN PAIN-PACU ORDER X 4 DOSES ONLY Folic Acid 1 mg 04/27/18 10:00 04/30/18 10:15 Folic Acid - PO 1 mg DAILY PANTERA Administration Ceftriaxone Sodium 1 gm/ 50 mls @ 100 mls/hr 04/27/18 10:00 04/30/18 10:15 Dextrose IVPB 100 mls/hr DAILY PANTERA Administration Protocol Oxycodone HCl 5 mg 04/29/18 18:06 04/30/18 18:35 Roxicodone - PO 5 mg Q6H PRN Administration PAIN LEVEL 7 - 10 Home Medications Medication Instructions Recorded Apixaban [Eliquis] 2.5 mg PO BID 04/25/18 Aspirin [Adult Aspirin] 81 mg PO DAILY 04/25/18 Calcium Acetate [Phoslo -] 667 mg PO TIDCM 04/25/18 Cinacalcet HCl [Sensipar] 30 mg PO DAILY 04/25/18 Folic AC/Vit Bcomp,C/Zn/Vit D3 1 each PO DAILY 04/25/18 [Dialyvite 800-Ultra D Tablet]
--- NOTE | 2018-04-30 14:49 | PN ---
Teaching Attending Note Name of Resident: Allyson Loredo ATTENDING PHYSICIAN STATEMENT I saw and evaluated the patient. I reviewed the resident's note and discussed the case with the resident. I agree with the resident's findings and plan as documented. SUBJECTIVE: OBJECTIVE: Vital Signs Temperature 98.4 F 04/30/18 09:24 Pulse Rate 99 H 04/30/18 14:13 Respiratory Rate 17 04/30/18 14:13 Blood Pressure 82/67 04/30/18 14:13 O2 Sat by Pulse Oximetry (%) 98 04/29/18 21:00 CBCD WBC 5.7 K/mm3 (4.0-10.0) 04/28/18 10:35 RBC 2.85 M/mm3 (4.00-5.60) L 04/28/18 10:35 Hgb 8.7 GM/dL (11.7-16.9) L 04/28/18 10:35 Hct 26.2 % (35.4-49) L 04/28/18 10:35 MCV 92.0 fl (80-96) 04/28/18 10:35 MCHC 33.3 g/dl (32.0-35.9) 04/28/18 10:35 RDW 16.7 % (11.9-15.9) H 04/28/18 10:35 Plt Count 293 K/MM3 (134-434) 04/28/18 10:35 MPV 6.7 fl (7.5-11.1) L 04/28/18 10:35 CMP Sodium 134 mmol/L (136-145) L 04/28/18 10:35 Potassium 4.8 mmol/L (3.5-5.1) D 04/28/18 10:35 Chloride 96 mmol/L (98-107) L 04/28/18 10:35 Carbon Dioxide 28 mmol/L (21-32) 04/28/18 10:35 Anion Gap 10 (8-16) 04/28/18 10:35 BUN 50 mg/dL (7-18) H 04/28/18 10:35 Creatinine 7.5 mg/dL (0.7-1.3) H* 04/28/18 10:35 Creat Clearance w eGFR 7.29 (>60) 04/28/18 10:35 Random Glucose 73 mg/dL (74-106) L D 04/28/18 10:35 Calcium 9.1 mg/dL (8.5-10.1) 04/28/18 10:35 Total Bilirubin 0.6 mg/dL (0.2-1.0) 04/25/18 07:45 AST 9 U/L (15-37) L D 04/25/18 07:45 ALT 11 U/L (12-78) L D 04/25/18 07:45 Alkaline Phosphatase 125 U/L (45-117) H 04/25/18 07:45 Total Protein 6.2 g/dl (6.4-8.2) L 04/25/18 07:45 Albumin 2.4 g/dl (3.4-5.0) L 04/25/18 07:45 CARDIAC ENZYMES Troponin I 0.05 ng/ml (0.00-0.05) D 04/25/18 07:45 Current Medications Generic Name Dose Route Start Last Admin Trade Name Freq PRN Reason Stop Dose Admin Acetaminophen 650 mg 04/26/18 14:33 04/30/18 05:59 Tylenol - PO 650 mg Q4H PRN Administration PAIN LEVEL 1-5 Apixaban 2.5 mg 04/27/18 22:00 04/30/18 11:22 Eliquis - PO 2.5 mg BID PANTERA Administration Docusate Sodium 100 mg 04/26/18 14:33 Colace - PO Q12H PRN CONSTIPATION Fentanyl 25 mcg 04/26/18 14:33 Sublimaze Injection - IVPUSH [id number] PRN PAIN-PACU ORDER X 4 DOSES ONLY Folic Acid 1 mg 04/27/18 10:00 04/30/18 10:15 Folic Acid - PO 1 mg DAILY PANTERA Administration Ceftriaxone Sodium 1 gm/ 50 mls @ 100 mls/hr 04/27/18 10:00 04/30/18 10:15 Dextrose IVPB 100 mls/hr DAILY PANTERA Administration Protocol Oxycodone HCl 5 mg 04/29/18 18:06 04/30/18 12:28 Roxicodone - PO 5 mg Q6H PRN Administration PAIN LEVEL 7 - 10 Home Medications Medication Instructions Recorded Apixaban [Eliquis] 2.5 mg PO BID 04/25/18 Aspirin [Adult Aspirin] 81 mg PO DAILY 04/25/18 Calcium Acetate [Phoslo -] 667 mg PO TIDCM 04/25/18 Cinacalcet HCl [Sensipar] 30 mg PO DAILY 04/25/18 Folic AC/Vit Bcomp,C/Zn/Vit D3 1 each PO DAILY 04/25/18 [Dialyvite 800-Ultra D Tablet] ASSESSMENT AND PLAN: Patient is a 67 y/o man with h/o HTN, HLD, afib s/p PPM , schizophrenia. MSSA bactreremia , endocarditis , chronic R shoulder pain ,swelling and prostate CA s/p seed implant who presented with worsening R shoulder pain and swelling. # Acute R shoulder pain due to right shoulder septic joint; s/p arthroscopy with washout and debridement by . On Ceftriaxone and Vanco.level is pending # ESRD: ON HD MWF continue # On eliquis and ASA at home. Unclear why. will d/w nephro . No documentation is noted. SCDS for now
[2018-04-30] MEDS ORDERED: SODIUM CHLORIDE 250 ML IV PRN (23:03)
[2018-05-01] MEDS ORDERED: VANCOMYCIN 1,000 MG in DEXTROSE 5%-WATER - 250 ML IVPB ONE (07:00)
--- NOTE | 2018-05-01 08:45 | PN ---
Progress Note (short form) - Note Progress Note: Ortho Pt seen and examined s/p right shoulder arthroscopy with washout and I &D pod #5 Selected Entries 05/01/18 06:00 Temperature 98.2 F Pulse Rate 112 H Respiratory 18 Rate Blood Pressure 146/88 dressing c/d/i, no drainage, decr swelling,good rom of elbow, nvi cultures neg a/p abx as per ID pain control ROM exercises will follow d/c planning as per ID/med
[2018-05-01] MEDS ORDERED: cefTRIAXone SODIUM 1 GM VIAL ONE (09:09)
[2018-05-01] MEDS ORDERED: DEXTROSE 5%-WATER - 50 ML IVPB ONE (09:09)
[2018-05-01] MEDS: CEFTRIAXONE 1 GM in DEXTROSE 5%-WATER - 50 ML IVPB SCH (09:11)
[2018-05-01] MEDS: FOLIC ACID 1 MG TABLET (FP) PO SCH (09:11)
[2018-05-01] MEDS: APIXABAN 2.5 MG TABLET PO SCH (09:11)
[2018-05-01 10:50] LABS: BASO % 0.8 % (0-2.0); EOS % 6.5 % (0-4.5); HEMATOCRIT 24.8 % (35.4-49); HEMOGLOBIN 8.2 GM/dL (11.7-16.9); LYMPH % 6.2 % (8-40); MCH 30.4 pg (25.7-33.7); MEAN CELL VOLUME 92.3 fl (80-96); MEAN PLT VOLUME 6.6 fl (7.5-11.1); MONO % 9.4 % (3.8-10.2); NEUT % 77.1 % (42.8-82.8); PLATELET COUNT 234 K/MM3 (134-434); RBC 2.69 M/mm3 (4.00-5.60); RDW 16.7 % (11.9-15.9); WHITE BLOOD COUNT 5.1 K/mm3 (4.0-10.0)
[2018-05-01 11:29] LABS: ANION GAP 9 (8-16); BLOOD UREA NITROGEN 44 mg/dL (7-18); CALCIUM 8.9 mg/dL (8.5-10.1); CHLORIDE 98 mmol/L (98-107); CO2 30 mmol/L (21-32); GLUCOSE,RANDOM 100 mg/dL (74-106); MAGNESIUM 2.3 mg/dL (1.8-2.4); PHOSPHOROUS 6.7 mg/dL (2.5-4.9); POTASSIUM 4.3 mmol/L (3.5-5.1); SODIUM 137 mmol/L (136-145)
[2018-05-01] MEDS ORDERED: SODIUM CHLORIDE 250 ML IV PRN (11:42)
--- NOTE | 2018-05-01 11:43 | PN ---
Progress Note (short form) - Note Progress Note: Renal follow up for ESRD on HD Pt seen and examined during dialysis BP 80/50, AVG with good flow Goal UF reduced to 1.5L no sob, chest pain, dizziness, N/V/D Vital Signs Temperature 98.3 F 05/01/18 10:25 Pulse Rate 97 H 05/01/18 11:30 Respiratory Rate 18 05/01/18 11:30 Blood Pressure 80/59 05/01/18 11:30 O2 Sat by Pulse Oximetry (%) 96 04/30/18 20:40 Intake & Output 04/28/18 04/29/18 04/30/18 05/01/18 23:59 23:59 23:59 23:59 Intake Total 700 450 630 Output Total 0 Balance 700 450 630 Weight 62.6 kg 63.106 kg 65.431 kg 64.5 kg NAD RRR CTA No Le edema CBC, BMP 05/01/18 10:30 Current Medications Acetaminophen (Tylenol -) 650 mg PO Q4H PRN PRN Reason: PAIN LEVEL 1-5 Last Admin: 04/30/18 05:59 Dose: 650 mg Apixaban (Eliquis -) 2.5 mg PO BID [facility] Last Admin: 05/01/18 09:11 Dose: 2.5 mg Docusate Sodium (Colace -) 100 mg PO Q12H PRN PRN Reason: CONSTIPATION Fentanyl (Sublimaze Injection -) 25 mcg IVPUSH [id number] PRN PRN Reason: PAIN-PACU ORDER X 4 DOSES ONLY Folic Acid (Folic Acid -) 1 mg PO DAILY [facility] Last Admin: 05/01/18 09:11 Dose: 1 mg Ceftriaxone Sodium 1 gm/ (Dextrose) 50 mls @ 100 mls/hr IVPB DAILY [facility]; Protocol Last Admin: 05/01/18 09:11 Dose: 100 mls/hr Sodium Chloride (Normal Saline -) 250 mls @ 3,000 mls/hr IV PRN PRN PRN Reason: Hypotension during Dialysis Stop: 05/01/18 23:03 Vancomycin HCl 1,000 mg/ (Dextrose) 250 mls @ 166.667 mls/hr IVPB ONCE ONE; Protocol Stop: 05/01/18 08:29 Oxycodone HCl (Roxicodone -) 5 mg PO Q6H PRN PRN Reason: PAIN LEVEL 7 - 10 Last Admin: 04/30/18 18:35 Dose: 5 mg 67 year old man with ESRD (M,W,F) on HD, HTN, endocarditis and schizophrenia with right shoulder pain and swelling. #ESRD on Hd #Septic Shoulder #Anemia pt is tolerating dialysis BP is low, will reduce UF goal continue Abx as per ID, check Vanco level with HD hgb downtrending, will continue DEMETRIS with HD check iron studies f/u cultures Thank you Aquiles Marie DO
[2018-05-01 11:47] LABS: CREATININE 8.9 mg/dL (0.7-1.3)
[2018-05-01] MEDS ORDERED: EPOETIN ALFA 20,000 UNIT/1 ML VIAL SQ ONE (13:00)
--- NOTE | 2018-05-01 13:14 | PN ---
Progress Note, Physician History of Present Illness: POD #5 washout R shoulder Reports less R shoulder pain Temps down Remains afebrile Cultures no growth - Current Medication List Current Medications: Active Medications Acetaminophen (Tylenol -) 650 mg PO Q4H PRN PRN Reason: PAIN LEVEL 1-5 Last Admin: 04/30/18 05:59 Dose: 650 mg Apixaban (Eliquis -) 2.5 mg PO BID [facility] Last Admin: 05/01/18 09:11 Dose: 2.5 mg Docusate Sodium (Colace -) 100 mg PO Q12H PRN PRN Reason: CONSTIPATION Fentanyl (Sublimaze Injection -) 25 mcg IVPUSH [id number] PRN PRN Reason: PAIN-PACU ORDER X 4 DOSES ONLY Folic Acid (Folic Acid -) 1 mg PO DAILY [facility] Last Admin: 05/01/18 09:11 Dose: 1 mg Ceftriaxone Sodium 1 gm/ (Dextrose) 50 mls @ 100 mls/hr IVPB DAILY [facility]; Protocol Last Admin: 05/01/18 09:11 Dose: 100 mls/hr Sodium Chloride (Normal Saline -) 250 mls @ 3,000 mls/hr IV PRN PRN PRN Reason: Hypotension during Dialysis Stop: 05/02/18 11:42 Oxycodone HCl (Roxicodone -) 5 mg PO Q6H PRN PRN Reason: PAIN LEVEL 7 - 10 Last Admin: 04/30/18 18:35 Dose: 5 mg - Objective Vital Signs: Vital Signs Temperature 98.3 F 05/01/18 10:25 Pulse Rate 99 H 05/01/18 12:00 Respiratory Rate 18 05/01/18 12:00 Blood Pressure 104/76 05/01/18 12:00 O2 Sat by Pulse Oximetry (%) 96 04/30/18 20:40 Constitutional: Yes: No Distress Eyes: Yes: Conjunctiva Clear Cardiovascular: Yes: Regular Rate and Rhythm, S1, S2 Respiratory: Yes: CTA Bilaterally Gastrointestinal: Yes: Normal Bowel Sounds, Soft Extremities: Yes: Other (decreased R shoulder swelling) Labs: CBC, BMP 05/01/18 10:30 05/01/18 10:30 INR, PTT INR 1.46 (0.82-1.09) H 04/25/18 00:53 Assessment/Plan POD #5 I&D R shoulder R/O septic arthritis R shoulder Sepsis secondary to infected shoulder ESRD Vanco level theraputic Redose at HD for level < 15 Will need an additional 5w course as outpatient for septic arthritis Ortho follow up
[2018-05-01 16:15] VITALS: BP 116/76; PULSE 111; TEMP 97.6
--- NOTE | 2018-05-01 20:59 | PN ---
Teaching Attending Note Name of Resident: Allyson Loredo ATTENDING PHYSICIAN STATEMENT I saw and evaluated the patient. I reviewed the resident's note and discussed the case with the resident. I agree with the resident's findings and plan as documented. SUBJECTIVE: Patient is comfortable with no acute distress. Feeling better. No fever or chills overnight. OBJECTIVE: Vital Signs Temperature 97.6 F 05/01/18 15:00 Pulse Rate 111 H 05/01/18 15:00 Respiratory Rate 18 05/01/18 15:00 Blood Pressure 116/76 05/01/18 15:00 O2 Sat by Pulse Oximetry (%) 96 04/30/18 20:40 CBCD WBC 5.1 K/mm3 (4.0-10.0) 05/01/18 10:30 RBC 2.69 M/mm3 (4.00-5.60) L 05/01/18 10:30 Hgb 8.2 GM/dL (11.7-16.9) L 05/01/18 10:30 Hct 24.8 % (35.4-49) L 05/01/18 10:30 MCV 92.3 fl (80-96) 05/01/18 10:30 MCHC 33.0 g/dl (32.0-35.9) 05/01/18 10:30 RDW 16.7 % (11.9-15.9) H 05/01/18 10:30 Plt Count 234 K/MM3 (134-434) D 05/01/18 10:30 MPV 6.6 fl (7.5-11.1) L 05/01/18 10:30 CMP Sodium 137 mmol/L (136-145) 05/01/18 10:30 Potassium 4.3 mmol/L (3.5-5.1) 05/01/18 10:30 Chloride 98 mmol/L (98-107) 05/01/18 10:30 Carbon Dioxide 30 mmol/L (21-32) 05/01/18 10:30 Anion Gap 9 (8-16) 05/01/18 10:30 BUN 44 mg/dL (7-18) H 05/01/18 10:30 Creatinine 8.9 mg/dL (0.7-1.3) H* 05/01/18 10:30 Creat Clearance w eGFR 5.98 (>60) 05/01/18 10:30 Random Glucose 100 mg/dL (74-106) D 05/01/18 10:30 Calcium 8.9 mg/dL (8.5-10.1) 05/01/18 10:30 Total Bilirubin 0.6 mg/dL (0.2-1.0) 04/25/18 07:45 AST 9 U/L (15-37) L D 04/25/18 07:45 ALT 11 U/L (12-78) L D 04/25/18 07:45 Alkaline Phosphatase 125 U/L (45-117) H 04/25/18 07:45 Total Protein 6.2 g/dl (6.4-8.2) L 04/25/18 07:45 Albumin 2.4 g/dl (3.4-5.0) L 04/25/18 07:45 CARDIAC ENZYMES Troponin I 0.05 ng/ml (0.00-0.05) D 04/25/18 07:45 Home Medications Medication Instructions Recorded Aspirin [Adult Aspirin] 81 mg PO DAILY 04/25/18 Calcium Acetate [Phoslo -] 667 mg PO TIDCM 04/25/18 Cinacalcet HCl [Sensipar] 30 mg PO DAILY 04/25/18 Folic AC/Vit Bcomp,C/Zn/Vit D3 1 each PO DAILY 04/25/18 [Dialyvite 800-Ultra D Tablet] Apixaban [Eliquis -] 2.5 mg PO BID #60 tablet 05/01/18 Miscellaneous Drug Not In Syst 1 each ASDIR #1 misc 05/01/18 [Outpatient Lab Test] Microbiology 04/25/18 00:51 Blood - Peripheral Venous Blood Culture - Final NO GROWTH AFTER 5 DAYS INCUBATION 04/25/18 00:51 Blood - Peripheral Venous Blood Culture - Final NO GROWTH AFTER 5 DAYS INCUBATION 04/26/18 13:24 Body Fluid - Other Gram Stain - Final 04/26/18 13:24 Body Fluid - Other Body Fluid Culture - Final NO GROWTH OF AEROBIC ORGANISMS AFTER 48 HOURS INCUBATION 04/26/18 13:24 Body Fluid - Other Anaerobic Culture - Preliminary No growth. 04/26/18 09:03 Synovial Fluid - Shoulder Gram Stain - Final 04/26/18 09:03 Synovial Fluid - Shoulder Body Fluid Culture - Final NO GROWTH OF AEROBIC ORGANISMS AFTER 48 HOURS INCUBATION 04/26/18 09:03 Synovial Fluid - Shoulder Anaerobic Culture - Preliminary No growth. as per resident's note, Right upper shoulder is improving, shoulder is covered. ASSESSMENT AND PLAN: Patient is a 67 y/o man with h/o HTN, HLD, afib s/p PPM , schizophrenia. MSSA bactreremia , endocarditis , chronic R shoulder pain ,swelling and prostate CA s /p seed implant who presented with worsening R shoulder pain and swelling. # POD #5 s/p arthroscopy with washout and debridement by . for Acute R shoulder pain improved, s/p Ceftriaxone and Vanco. patient will continue Vancomycin as per ID post dialysis (MWF) Redose at HD for level < 15 as per ID , patient will need additional 5 weeks of IV antibiotic, is aware. Follow wit ortho and in a week period. # ESRD: ON HD MWF continue DVT Px: Eliquis continue VNS visit was arranged
--- NOTE | 2018-05-01 21:25 | DS ---
Physical Exam: SUBJECTIVE: Patient seen and examined at bedside. No acute events overnight. Today, pt states that pain in R shoulder has improved. Dialysis today, dispo plan d/w pt at length. Questions answered. Denies LENZ, fever, chills, SOB, or changes in urinary or bowel function. OBJECTIVE: Vital Signs Period Temp Pulse Resp BP Sys/[place] Pulse Ox Last 24 Hr 97.6 F-98.3 F 95-112 18-20 80-146/59-91 PHYSICAL EXAM GENERAL: pleasant. ambulating in room. in no acute distress HEAD: Normal with no signs of trauma. EYES: PERRL, extraocular movements intact, sclera anicteric, conjunctiva clear. ENT: Ears normal, nares patent, oropharynx clear without exudates, moist mucous membranes. NECK: Trachea midline, supple. LUNGS: Breath sounds equal, clear to auscultation bilaterally, no wheezes, no crackles, no accessory muscle use. HEART: regular rate and rhythm, S1, S2 without murmur, rub or gallop. ABDOMEN: Soft, nontender, nondistended, normoactive bowel sounds, no guarding EXTREMITIES: +R shoulder: improved edema. mild warmth. incision site clean. R forearm with resultant edema, however ROM improved able to abduct to 60'. lower ext: without edema or TTP NEUROLOGICAL: Cranial nerves II through XII grossly intact. Normal speech, gait not observed. PSYCH: Normal mood, normal affect. SKIN: Warm, dry, normal turgor, no rashes or lesions noted LABS Laboratory Results 05/01/18 05/01/18 05/01/18 10:30 10:30 10:30 WBC 5.1 RBC 2.69 L Hgb 8.2 L Hct 24.8 L MCV 92.3 MCH 30.4 MCHC 33.0 RDW 16.7 H Plt Count 234 D MPV 6.6 L Absolute Neuts (auto) 3.9 Neutrophils % 77.1 Lymphocytes % 6.2 L D Monocytes % 9.4 Eosinophils % 6.5 H Basophils % 0.8 Nucleated RBC % 0 Sodium 137 Potassium 4.3 Chloride 98 Carbon Dioxide 30 Anion Gap 9 BUN 44 H Creatinine 8.9 H* Creat Clearance w eGFR 5.98 Random Glucose 100 D Calcium 8.9 Phosphorus 6.7 H D Magnesium 2.3 D Ferritin Random Vancomycin 25.26 Renal fnc 04/25/18 04/25/18 04/26/18 00:53 07:45 08:00 BUN 29 H D 34 H 49 H D Creatinine 4.4 H D 4.8 H 6.4 H D 04/28/18 05/01/18 10:35 10:30 BUN 50 H 44 H Creatinine 7.5 H* 8.9 H* Vancomycin dosing 04/26/18 04/28/18 05/01/18 18:20 10:35 10:30 Random Vancomycin 13.82 22.7 25.26 Further testing 04/26/18 08:30 Hepatitis A Ab Total Negative Hep Bs Antigen Negative Hep Bs Antibody Non reactive Hep B Core Total Ab Negative HCV Quantitation Hcv not detected Hepatitis C RNA TNP Synovial fluid 04/26/18 09:00 Synovial Source Synovial fluid Synovial WBC 37307 Synovial RBC 02594 Synovial Neutrophils 92 Synovial Lymphocytes 0 Synovial Monocytes 8 Testing 04/25/18: Duplex RUE: nonocclusive thrombus in the R internal jugular vein. The remainder of the examination appears unremarkable. 04/25/18: R Shoulder XR: significant soft tissue swelling noted, clinically correlate for joint effusion possible hematoma. no evidence of glenohumeral joint dislocation. cortical disruption is seen in the lateral surface of the humeral head. sclerotic, lytic changes are noted along the inner surface of the acromion. no airspace opacities in the R upper lung zone. R vascular catheter is noted. midline trachea. 04/25/18: CXR: no evidence of active pulmonary disease, no evidence of pneumothorax 04/25/18: CT upper extremity w/o contrast: findings are most consistent with septic arthritis and adjacent osteomyeliis. there is a very large joint effusion and fluid in the area of the shoulder. small pleural effusion. additional imaging can be obtained with MRI. Microbiology 04/26/18 13:24 Body Fluid - Other Gram Stain - Final 04/26/18 13:24 Body Fluid - Other Body Fluid Culture - Final NO GROWTH OF AEROBIC ORGANISMS AFTER 48 HOURS INCUBATION 04/26/18 09:03 Synovial Fluid - Shoulder Gram Stain - Final 04/26/18 09:03 Synovial Fluid - Shoulder Body Fluid Culture - Final NO GROWTH OF AEROBIC ORGANISMS AFTER 48 HOURS INCUBATION 04/25/18 00:51 Blood - Peripheral Venous Blood Culture - Final NO GROWTH AFTER 5 DAYS INCUBATION 04/25/18 00:51 Blood - Peripheral Venous Blood Culture - Final NO GROWTH AFTER 5 DAYS INCUBATION 04/26/18 13:24 Body Fluid - Other Anaerobic Culture - Preliminary No growth. 04/26/18 09:03 Synovial Fluid - Shoulder Anaerobic Culture - Preliminary No growth. HOSPITAL COURSE: Date of Admission:04/25/18 Date of Discharge: 05/01/18 Admit diagnosis: Right shoulder pain likely 2/2 septic arthritis 67 y/o M w/ PMH ESRD on HD who was sent to the ED from his HD clinic for evaluation of fever to 100.4. The patient stated that for the past 6 months, he had noticed swelling of his right shoulder which waxed and waned with his fluid status between HD sessions. Approx 1 week prior to admission, pt noticed that the swelling got progressively worse and became associated with redness, warmth and pain.Symptoms were also associated with decreased ROM of the right arm as well as right arm weakness. Pt admitted for R shoulder pain likely 2/2 septic arthritis. While pt was admitted, he was managed for the following: R shoulder pain likely 2/2 septic arthritis Pt was febrile on admission to 101.3F, with tachycardia to 103HR, lactic acidosis to 2.9. Pt was found to have R shoulder pain likely 2/2 septic arthritis. He was seen by ortho and underwent R shoulder arthroscopy with washout and debridement. Pt also underwent joint fluid aspiration where 40 cc of white fluid was aspirated. Gram stain, cx, and blood cx were all found to be negative. Pt was maintained on rocephin 1g IVPB qd for abx coverage, of which he completed seven days. Pt also received few doses of vancomycin, dosed as per trough levels. He was also seen by ID. Pt received oxycodone 5mg PO q6h PRN for pain control. R shoulder pressure dressings were changed by ortho. Pt is discharged home with VNS, and will receive vanco for 5 additional weeks - dosed after dialysis with level goal<15. Discussed with patient, and d/w pt's dialysis center over phone. Rx given as well. On d/c, pt with greatly improved ROM in RUE, R shoulder. Without complaint. Hx lupus anticoagulant + h/o Afib pt admitted on eliquis, however did not know implication. Pt also did not know dosage, and during points of hospitalization, refused his dose. His pharmacy was contacted, and past doctor Dr. Peraza contacted for further information. Calls were also placed to [facility], without evidence of eliquis indication. Pt continued on eliquis 2.5mg PO BID and will be d/c on d/t h/o afib and with RUE US showing R IJ thrombus (though likely chronic as per surgery ). ESRD on HD Pt to continue dialysis M,W, F at outside site with vanco dosing as described above. Plan d/w Dr. Marie Minutes to complete discharge: 46 Discharge Summary Reason For Visit: SEVERE SEPSIS, ESRD ON DIALYSIS Condition: Improved - Instructions Diet, Activity, Other Instructions: You were in the hospital because you had swelling and pain in your right shoulder. You were seen by an orthopedic surgeon and underwent a procedure called arthroscopy. This was a procedure to get a closer look at your shoulder joint. You also had a joint aspiration done, which removed fluid from the affected area. This fluid did not grow any bacteria. There was also no bacterial growth noted in your blood. Your visit You were seen by the medicine, infection, orthopedic surgery, and nephrology ( kidney) teams. Medications You may continue your home medications. You will also need an antibiotic called vancomycin after your dialysis sessions with Dr. Marie. It will be redosed at dialysis for a level <15. You will need a five additional week course as an outpatient for your septic arthritis. Please also continue to take the blood thinner eliquis 2.5mg (1 tab) twice a day , every day. This is important to take since you have a history of atrial fibrillation which can cause you to have a fast heart rate. It is important to take the blood thinner so that you do not develop clots. Care -You may continue dialysis with Dr. Marie, the manager desktop that saw you in the hospital. -you will have visiting nurse care for your R shoulder. They will clean the affected area, and apply sterile pressure dressings. -as you are on a blood thinner, it is important to be aware of any signs of bleeding such as: blood in your urine or stool, or feelings of passing out/ dizziness. It may also be easier for your skin to bruise while on this medication. Follow-up Please follow up with the following doctors: -Dr. Hernández - your primary care doctor - 1 week to discuss your hospital visit. -Dr. Marie, a manager desktop/kidney doctor - 1 week . He will help dose your vancomycin antibiotic at your dialysis sessions. -Dr. Smith, the orthopedic surgeon who saw you in the hospital - 1 week -Dr. Valle, the infection doctor who saw you in the hospital - 1 week If you develop shortness of breath, or chest pain, please go to the hospital. Referrals: Aguilar Valle MD [Staff Physician] - 1 Week Kameron Smith MD [Staff Physician] - 1 Week Malorie Wells MD [Primary Care Provider] - 1 Week Aquiles Marie MD [Staff Physician] - 1 Week Disposition: HOME - Home Medications Comprehensive Discharge Medication List: Ambulatory Orders Aspirin [Adult Aspirin] 81 mg PO DAILY 04/25/18 Calcium Acetate [Phoslo -] 667 mg PO TIDCM 04/25/18 Cinacalcet HCl [Sensipar] 30 mg PO DAILY 04/25/18 Folic AC/Vit Bcomp,C/Zn/Vit D3 [Dialyvite 800-Ultra D Tablet] 1 each PO DAILY Apixaban [Eliquis -] 2.5 mg PO BID #60 tablet 05/01/18 Miscellaneous Drug Not In Syst [Outpatient Lab Test] 1 each ASDIR #1 misc This patient is new to me today: No Emergency Visit: No Critical Care patient: No - Discharge Referral Referred to [facility] No
[2018-05-02 06:16] LABS: SERUM IRON SATURATION 15 % (15-55); TOTAL IRON BINDING CAPACITY 115 ug/dL (250-450); UIBC 98 ug/dL (111-343)
--- NOTE | 2018-05-04 10:31 | OP ---
DATE OF OPERATION: 04/26/2018 PREOPERATIVE DIAGNOSIS: Septic right shoulder. POSTOPERATIVE DIAGNOSIS: Septic right shoulder. PROCEDURE: Arthroscopy, right shoulder with washout and debridement. SURGICAL ATTENDING: Kameron Smith M.D. ANESTHESIA: General. CLOSURE: 3-0 nylon with [place] drain. COMPLICATIONS: None. CONDITION: To recovery room in stable condition. DESCRIPTION OF PROCEDURE: Patient taken to operating room on April 26, 2018. General anesthesia was administered by the anesthesiologist. Patient was already on antibiotics, so no antibiotics were given right before the case. Patient was placed in beach chair position with all prominences well padded. Right shoulder area was prepped and draped in usual sterile fashion. A posterior portal was made trocar. A large amount of purulence was drained from the shoulder, well over 100 mL. This was sent for culture and sensitivity, again. An accessory lateral portal was made as well. A large amount of arthroscopic fluid was lavaged through the shoulder. While inside direct visualization revealed complete loss of the rotator cuff with a high riding humeral head articulating with the undersurface of the acromion. A large amount of fibrinous material debrided by the shaver. Liters of fluid were again pulsed through the shoulder and suctioned out with the shaver. At the end of the case, the trocars were removed, fluid was drained from the shoulder. The posterior portal was closed with 3-0 nylon, lateral portal a Aaron drain was used to be inserted into the shoulder, and then around that was closed with 3-0 nylon. Sterile pressure dressing was placed over the shoulder. Patient was awakened from anesthesia and transferred to recovery room in stable condition. No complications. Estimated blood loss negligible. Maria Elena [email or web address]/[id number]
== END 2018-05-01 16:15 | disposition home or self-care (01) | DRG 548 ==
LOC: JER 21:32 → JERBED 04-25 03:24 → J6S 04-25 05:12
PROVIDERS: ADMIT Internal Medicine; ATTEND Internal Medicine
PROC: 0XJ20ZZ Inspection of Right Shoulder Region, Open Approach (ICD-10-PCS; 2018-04-26)
PROC: 0R9J3ZZ Drainage of Right Shoulder Joint, Percutaneous Approach (ICD-10-PCS; principal; 2018-04-26 15:30)
PROC: 0XB20ZX Excision of Right Shoulder Region, Open Approach, Diagnostic (ICD-10-PCS; 2018-04-26 15:30)
PROC: 5A1D90Z Performance of Urinary Filtration, Continuous, Greater than 18 hours Per Day (ICD-10-PCS; 2018-05-01)
DX: M00.9 Pyogenic arthritis, unspecified (principal); N18.6 End stage renal disease; I82.90 Acute embolism and thrombosis of unspecified vein; I12.0 Hypertensive chronic kidney disease with stage 5 chronic kidney disease or end stage renal disease; E87.2 Acidosis; M25.411 Effusion, right shoulder; D63.1 Anemia in chronic kidney disease; E78.5 Hyperlipidemia, unspecified; Z99.2 Dependence on renal dialysis; E03.9 Hypothyroidism, unspecified; E87.6 Hypokalemia; F20.9 Schizophrenia, unspecified
CPT/HCPCS: 36415; 71046-TC-FY; 73030-TC-RT-FY; 73200-TC-RT; 80048; 80053; 82728; 83540; 83550; 83605; 83735; 84100; 84484; 85025; 85610; 85730; 86140; 86704; 86706; 86708; 87040; 87070; 87075; 87205; 87340; 87522; 88304-TC; 89051; 93005; 93010; 93971; 94760; 97116-GP; 97161-GP; 99282-25; G0480; J0885; J1644; J7030

== ENCOUNTER 2018-06-02 17:34 | Inpatient (IN) | payer OTHER ==
--- NOTE | 2018-06-02 18:11 | PDOC ---
Rapid Medical Evaluation Medical Evaluation: Allergies Allergy/AdvReac Type Severity Reaction Status Date / Time No Known Drug Allergies Allergy Verified 04/24/18 21:41 06/02/18 18:00 I have performed a brief in-person evaluation of this patient. The patient presents with a chief complaint of:Told that his LUE graft is clogged at dialysis center at [facility] HD center today. Schedule is M/W/ and was last dialyzed Tuesday. Could not get HD today. Feels well. H/o HTN, HLD, afib, s/p PPM, schizophrenia, MSSA bacteremia, endocarditis, chronic R shoulder pain, prostate ca s/p seed implant and gout. Vasc is Dr Knight, no PMD per pt Pertinent physical exam findings:stable and in NAD I have ordered the following:labs The patient will proceed to the ED for further evaluation. Discharge Disposition - Diagnosis Clotted dialysis access Qualifiers: Encounter type: initial encounter Qualified Code(s): T82.49XA - Other complication of vascular dialysis catheter, initial encounter - Referrals - Patient Instructions - Post Discharge Activity
--- NOTE | 2018-06-02 19:04 | PDOC ---
History of Present Illness - General Chief Complaint: Dialysis Shunt Problem Stated Complaint: PAIN Time Seen by Provider: 06/02/18 18:29 - History of Present Illness Initial Comments: 06/02/18 19:03 Mr. Kamara is a 67 yo male w/ pmh of HTN, BPH, and ESRD on m/w/f dialysis who presents for evaluation after dialysis was unsuccessful earlier today. Patient reports he has no complaints at this time otherwise. The patient denies chest pain, shortness of breath, headache and dizziness. Denies fever, chills, nausea, vomit, diarrhea and constipation. Denies dysuria, frequency, urgency and hematuria. Allergies: NKDA Past History - Past Medical History Allergies/Adverse Reactions: Allergies Allergy/AdvReac Type Severity Reaction Status Date / Time No Known Drug Allergies Allergy Verified 04/24/18 21:41 Home Medications: Ambulatory Orders Indomethacin [Indocin -] 25 mg PO BID #14 capsule 05/11/18 Anemia: No Asthma: Yes ( A CHILD) Cancer: No Cardiac Disorders: No CVA: No COPD: No CHF: No DVT: No Dementia: No Diabetes: No Dialysis: Yes (m-w-f, lt arm graft) GI Disorders: No Disorders: Yes (enlarged prostate) HTN: Yes Hypercholesterolemia: No Liver Disease: No Psychiatric Problems: Yes (restlessness and agitation,schizophernia) Seizures: No Thyroid Disease: No - Surgical History Abdominal Surgery: No Appendectomy: No Cardiac Surgery: No Cholecystectomy: No Lung Surgery: No Neurologic Surgery: No Orthopedic Surgery: No - Immunization History Immunization Up to Date: No - Suicide/Smoking/Psychosocial Hx Smoking Status: No Smoking History: Former smoker Have you smoked in the past 12 months: No Number of Cigarettes Smoked Daily: 20 If you are a former smoker, when did you quit?: 1990 Information on smoking cessation initiated: No 'Breaking Loose' booklet given: 03/13/15 Hx Alcohol Use: No Drug/Substance Use Hx: No Substance Use Type: None Hx Substance Use Treatment: No Review of Systems - Review of Systems Comments:: 06/02/18 20:36 GENERAL/CONSTITUTIONAL: No fever or chills. No weakness. HEAD, EYES, EARS, NOSE AND THROAT: No change in vision. No ear pain or discharge. No sore throat. CARDIOVASCULAR: No chest pain or shortness of breath RESPIRATORY: No cough, wheezing, or hemoptysis. GASTROINTESTINAL: No nausea, vomiting, diarrhea or constipation. GENITOURINARY: No dysuria, frequency, or change in urination. MUSCULOSKELETAL: No joint or muscle swelling or pain. No neck or back pain. SKIN: No rash NEUROLOGIC: No headache, vertigo, loss of consciousness, or change in strength/ sensation. ENDOCRINE: No increased thirst. No abnormal weight change HEMATOLOGIC/LYMPHATIC: No anemia, easy bleeding, or history of blood clots. ALLERGIC/IMMUNOLOGIC: No hives or skin allergy. *Physical Exam - Vital Signs Last Vital Signs Temp Pulse Resp BP Pulse Ox 98.1 F 100 H 20 124/89 99 06/02/18 18:22 06/02/18 18:22 06/02/18 18:22 06/02/18 18:22 06/02/18 18:22 - Physical Exam Comments: 06/02/18 20:36 GENERAL: Awake, alert, and fully oriented, in no acute distress HEAD: No signs of trauma, normocephalic, atraumatic EYES: PERRLA, EOMI, sclera anicteric, conjunctiva clear ENT: Auricles normal inspection, hearing grossly normal, nares patent, oropharynx clear without exudates. Moist mucosa NECK: Normal ROM, supple, no lymphadenopathy, JVD, or masses LUNGS: No distress, speaks full sentences, clear to auscultation bilaterally HEART: Regular rate and rhythm, normal S1 and S2, no murmurs, rubs or gallops, peripheral pulses normal and equal bilaterally. ABDOMEN: Soft, nontender, normoactive bowel sounds. No guarding, no rebound. No masses EXTREMITIES: +No thrill or bruit appreciable on exam to Left UE fistula. Otherwise normal inspection, Normal range of motion, no edema. No clubbing or cyanosis. NEUROLOGICAL: Cranial nerves II through XII grossly intact. Normal speech, normal gait, no focal sensorimotor deficits SKIN: Warm, Dry, normal turgor, no rashes or lesions noted. ED Treatment Course - LABORATORY CBC & Chemistry Diagram: 06/02/18 19:40 06/02/18 19:40 Medical Decision Making - Medical Decision Making 06/02/18 21:52 Mr. Kamara is a 67 yo male w/ pmh as described who presents after failure of dialysis earlier today. Labs grossly unconcerning for acute process as below. US confirmed clotted fistula. Discussed case with and Immanuel who will evaluate in AM. Patient made NPO. Admitting patient to hospitalist. Laboratory Results - last 24 hr 06/02/18 06/02/18 19:40 19:40 WBC 6.4 RBC 3.74 L Hgb 11.4 L Hct 35.1 L D MCV 93.7 MCH 30.6 MCHC 32.6 RDW 21.2 H Plt Count 180 D MPV 8.0 D Absolute Neuts (auto) 4.0 Neutrophils % 62.9 Lymphocytes % 21.5 D Monocytes % 6.9 Eosinophils % 6.3 H Basophils % 2.4 H Nucleated RBC % 0 Anisocytosis 1+ Sodium 145 Potassium 3.4 L Chloride 107 Carbon Dioxide 25 Anion Gap 13 BUN 63 H D Creatinine 7.5 H Creat Clearance w eGFR 7.29 Random Glucose 144 H D Calcium 9.0 Total Bilirubin 0.4 AST 15 ALT 18 D Alkaline Phosphatase 281 H D Total Protein 6.8 Albumin 3.5 *DC/Admit/Observation/Transfer Diagnosis at time of Disposition: Clotted dialysis access Qualifiers: Encounter type: initial encounter Qualified Code(s): T82.49XA - Other complication of vascular dialysis catheter, initial encounter - Discharge Dispostion Decision to Admit order: Yes - Referrals - Patient Instructions - Post Discharge Activity
[2018-06-02 20:13] LABS: BASO % 2.4 % (0-2.0); EOS % 6.3 % (0-4.5); HEMATOCRIT 35.1 % (35.4-49); HEMOGLOBIN 11.4 GM/dL (11.7-16.9); LYMPH % 21.5 % (8-40); MCH 30.6 pg (25.7-33.7); MCHC 32.6 g/dl (32.0-35.9); MEAN CELL VOLUME 93.7 fl (80-96); MONO % 6.9 % (3.8-10.2); NEUT % 62.9 % (42.8-82.8); PLATELET COUNT 180 K/MM3 (134-434); RBC 3.74 M/mm3 (4.00-5.60); RDW 21.2 % (11.9-15.9); WHITE BLOOD COUNT 6.4 K/mm3 (4.0-10.0)
[2018-06-02 20:35] LABS: ALBUMIN 3.5 g/dl (3.4-5.0); ANION GAP 13 (8-16); BILIRUBIN,TOTAL 0.4 mg/dL (0.2-1.0); BLOOD UREA NITROGEN 63 mg/dL (7-18); CHLORIDE 107 mmol/L (98-107); CO2 25 mmol/L (21-32); CREATININE 7.5 mg/dL (0.7-1.3); GLUCOSE,RANDOM 144 mg/dL (74-106); POTASSIUM 3.4 mmol/L (3.5-5.1); SGOT/AST 15 U/L (15-37); SGPT/ALT 18 U/L (12-78); SODIUM 145 mmol/L (136-145); TOT PROT 6.8 g/dl (6.4-8.2)
[2018-06-02 20:36] LABS: ALK PHOS 281 U/L (45-117)
[2018-06-02 21:04] LABS: ANISOCYTOSIS 1+
--- NOTE | 2018-06-02 21:54 | HP ---
Admitting History and Physical - Primary Care Physician PCP: None - Admission Chief Complaint: Fistula not working History of Present Illness: 67 yo M h/o HTN, BPH, and ESRD on HD (MWF) presented to the ED with non- functional fistula. Patient stated that he was at [facility] [place] earlier this PM where the nurse there found his L arm fistula not working, likely clotted. He otherwise denies chest pain, sob, dizziness, headache, abd pain, bowel sx. History Source: Patient Limitations to Obtaining History: No Limitations - Past Medical History GETTERER: Yes: Seizure Cardiovascular: Yes: HTN, Other (H/o Endocarditis) Renal/: Yes: Renal Failure, BPH, Hemodialysis Heme/Onc: Yes: Other Infectious Disease: Yes: Other (recent bacteremia) Musculoskeletal: Yes: Other (Swollen right shoulder) Endocrine: Yes: Hyperparathyroidism - Past Surgical History Past Surgical History: Yes: AV Fistula/Graft, TURP - Smoking History Smoking history: Former smoker Have you smoked in the past 12 months: No Aproximately how many cigarettes per day: 20 If you are a former smoker, when did you quit?: 1990 - Alcohol/Substance Use Hx Alcohol Use: No History of Substance Use: reports: Marijuana - Social History History of Recent Travel: No Home Medications - Allergies Allergies/Adverse Reactions: Allergies Allergy/AdvReac Type Severity Reaction Status Date / Time No Known Drug Allergies Allergy Verified 04/24/18 21:41 - Home Medications Home Medications: Ambulatory Orders Allopurinol [Zyloprim -] 100 mg PO DAILY 06/02/18 Aspirin [Aspirin EC] 81 mg PO DAILY 06/02/18 Calcium Acetate 667 mg PO TID 06/02/18 Cinacalcet HCl [Sensipar] 30 mg PO 06/02/18 Folic AC/Vit Bcomp,C/Zn/Vit D3 [Dialyvite 800-Ultra D Tablet] 800 tab PO DAILY 06/02/18 Review of Systems - Review of Systems Constitutional: reports: No Symptoms Eyes: reports: No Symptoms HENT: reports: No Symptoms Neck: reports: No Symptoms Cardiovascular: reports: No Symptoms Respiratory: reports: No Symptoms Gastrointestinal: reports: No Symptoms Genitourinary: reports: No Symptoms Musculoskeletal: reports: No Symptoms Integumentary: reports: No Symptoms Neurological: reports: No Symptoms Endocrine: reports: No Symptoms Hematology/Lymphatic: reports: No Symptoms Psychiatric: reports: No Symptoms Physical Examination Vital Signs: Vital Signs Temperature 98.1 F 06/02/18 18:22 Pulse Rate 100 H 06/02/18 18:22 Respiratory Rate 20 06/02/18 18:22 Blood Pressure 124/89 06/02/18 18:22 O2 Sat by Pulse Oximetry (%) 99 06/02/18 18:22 Constitutional: Yes: Well Nourished, No Distress, Calm Eyes: Yes: Conjunctiva Clear, EOM Intact HENT: Yes: Atraumatic, Normocephalic Neck: Yes: Supple, Trachea Midline Cardiovascular: Yes: Regular Rate and Rhythm, Murmur (grade 1 ejection), S1, S2. No: JVD Respiratory: Yes: Regular, CTA Bilaterally Gastrointestinal: Yes: Normal Bowel Sounds, Soft. No: Distention, Tenderness Extremities: Yes: Other (L upper arm fistula. no palpable thrills. no audible bruits) Edema: No Peripheral Pulses WNL: Yes Neurological: Yes: Alert, Oriented Labs: CBC, BMP 06/02/18 19:40 06/02/18 19:40 Imaging - Results Ultrasound: Report Reviewed Assessment/Plan 67 yo M ESRD on HD admitted to med-surg for thrombosed fistula. Thrombosed fistula - Doppler done - Vascular and renal consult - T&S - NPO after midnight - hold asa ESRD on HD - Will resume regular reschedule once fistula is functional - cont. sensipar and calcium acetate and dialyvite Gout - Cont. allopurinol Renal diet, NPO after midnight dvt ppx: charito Hartley PGY3 Visit type - Emergency Visit Emergency Visit: Yes Care time: The patient presented to the Emergency Department on the above date and was hospitalized for further evaluation of their emergent condition. - New Patient This patient is new to me today: Yes Date on this admission: 06/02/18 - Critical Care Critical Care patient: No Hospitalist Screening - Colonoscopy Questionnaire Colonoscopy Questionnaire: Colonoscopy Questionnaire - Patient: 50 - 75 years old and never had a screening colonoscopy: Unknown History of colon or rectal polyps, or CA: Unknown History of IBD, Crohn's disease or UC: Unknown History of abdominal radiation therapy as a child: Unknown - Relative: 1 with colon or rectal CA, or polyps at age 60 or younger: Unknown Colon or rectal CA diagnosed at age 45 or younger: Unknown Multiple relatives with colon or rectal CA: Unknown - Outcome: Screening Result: Negative Screen
--- NOTE | 2018-06-02 23:21 | PDOC ---
Attending Attestation - Resident Resident Name: TienjesusitaelizabethVincentGui - ED Attending Attestation I have performed the following: I have examined & evaluated the patient, The case was reviewed & discussed with the resident, I agree w/resident's findings & plan, Exceptions are as noted - HPI HPI: 06/02/18 23:18 Mr. Kamara is a 67 year old male with past medical history of Seizure, HTN, HLD, AFib, s/p PPM, H/o Endocarditis, Renal Failure, BPH, ESRD (on HD MWF), MSSA bacteremia, prostate ca s/p seed implant and hyperparathyroidism presents to the emergency department s/p failed hemodialysis. The patient reports he was at [facility] [place] operated by [facility] earlier for routine dialysis, states he was unable to be dialyzed secondary to LUE obstructed fistula. The patient reports history of renal failure secondary to latent treatment for enlarged prostate. Denies chest pain or shortness of breath. Denies the edema or syncope. Denies dizziness or leg swelling. Allergies: NKDA Social history: Former smoker. History of Marijuana use. No alcohol use reported. Surgical history: AV Fistula/Graft, TURP (2001) PCP: None reported. Vascular: Dr. Knight - Physicial Exam PE: 06/02/18 23:18 General: Well appearing, awake and alert, NAD. HEENT: NCAT, PERRL, EOMI, clear conjunctiva, anicteric, moist mucus membranes, clear oropharynx, no oral lesions.. Neck: neck supple, FROM Resp: CTAB, normal and even respirations, no respiratory distress CVS: (+) Soft holosystolic murmur. Regular rate. 2+ peripheral pulses throughout , no peripheral edema Abdomen: soft, NTND, no peritoneal signs. Back: nontender, normal inspection and ROM MSK: (+) LUE AV graft: No palpable thrill or bruit. no edema, [place] x4, ROM intact. No clubbing or cyanosis. normal bulk and tone. Neuro: alert, oriented appropriately; no focal neurologic deficits. SILT, 5/5 distal and prox strength in all extrem. speech clear. Skin: warm and well perfused, cap refill <2 sec, normal color - Medical Decision Making 06/02/18 23:17 MDM: Asad 67M with h/o Seizure, HTN, HLD, AFib, s/p PPM, H/o Endocarditis , Renal Failure, BPH, ESRD (on HD MWF), MSSA bacteremia, prostate ca s/p seed implant and hyperparathyroidism presenting with failed dialysis /AV fistula failure today. VS stable, afebrile, no pain well appearing. DDx. AV fistula failure, shunt thrombosis, infection, DVT. Plan: Arterial /venous duplex of AV fistula to r/o obstruction/thrombosis. US confirmed clogged graft - called to vascular surgery, Dr Gambino, will keep NPO after midnight, revision operatively tomorrow. Also called his nephrology team, Dr. Kwan/Chris, will dialyze tomorrow Admit for management of AV fistula failure, vascular management and revision. Will need HD, electrolytes here including potassium wnl. baseline anemia, no signs of infection. will feed before midnight pending operative management tomorrow. 06/02/18 23:19
[2018-06-03 04:07] VITALS: BMI 20.3
[2018-06-03] MEDS ORDERED: HEPARIN NA (PORCINE) 5,000 UNITS/ML 1ML VIAL SQ SCH (06:00)
--- NOTE | 2018-06-03 06:17 | PN ---
Teaching Attending Note Name of Resident: Denzel Hartley ATTENDING PHYSICIAN STATEMENT I saw and evaluated the patient. I reviewed the resident's note and discussed the case with the resident. I agree with the resident's findings and plan as documented. SUBJECTIVE: OBJECTIVE: ASSESSMENT AND PLAN: this shant 67 yr old male admitted for obstructed fistula patient to be evaluated by vascular for unclogging of the fistula
[2018-06-03 07:49] LABS: HEMATOCRIT 32.7 % (35.4-49); HEMOGLOBIN 10.9 GM/dL (11.7-16.9); MCH 31.2 pg (25.7-33.7); MCHC 33.4 g/dl (32.0-35.9); MEAN CELL VOLUME 93.2 fl (80-96); MEAN PLT VOLUME 7.7 fl (7.5-11.1); PLATELET COUNT 180 K/MM3 (134-434); RBC 3.51 M/mm3 (4.00-5.60); RDW 20.5 % (11.9-15.9)
[2018-06-03] MEDS: CALCIUM ACETATE 667 MG CAPSULE (FP) PO SCH ×3 (07:57→18:31)
[2018-06-03 08:05] LABS: INR 1.04 (0.82-1.09); PROTHROMBIN TIME (PATIENT) 11.8 SEC (9.7-13.0)
[2018-06-03 08:08] LABS: ACTIVATED PTT 31.2 SECONDS (25.2-36.5)
[2018-06-03 08:27] LABS: ANION GAP 11 (8-16); BLOOD UREA NITROGEN 74 mg/dL (7-18); CHLORIDE 105 mmol/L (98-107); CO2 27 mmol/L (21-32); GLUCOSE,RANDOM 88 mg/dL (74-106); MAGNESIUM 2.8 mg/dL (1.8-2.4); PHOSPHOROUS 5.6 mg/dL (2.5-4.9); POTASSIUM 3.6 mmol/L (3.5-5.1); SODIUM 143 mmol/L (136-145)
[2018-06-03 08:32] LABS: CREATININE 8.4 mg/dL (0.7-1.3)
[2018-06-03] MEDS ORDERED: ALLOPURINOL 100 MG TABLET (FP) PO SCH (10:00)
[2018-06-03] MEDS ORDERED: FOLIC AC PO SCH (10:00)
[2018-06-03] MEDS ORDERED: CINACALCET HCL 30 MG TAB (FP) PO SCH (10:00)
[2018-06-03] MEDS ORDERED: MULTIVITAMINS (DAILY MVI) TABLET (FP) PO SCH (10:00)
[2018-06-03] MEDS ORDERED: VIT BCOMP C PO SCH (10:00)
[2018-06-03] MEDS ORDERED: [UNRECOGNIZED DRUG - OTHER] PO SCH (10:00)
[2018-06-03] MEDS ORDERED: CHOLECALCIFEROL (VITAMIN D3) 400 UNIT TABLET (FP) PO SCH (10:00)
[2018-06-03] MEDS ORDERED: ASPIRIN COATED 81 MG TABLET.EC PO SCH (10:00)
[2018-06-03] MEDS ORDERED: VIT D3 PO SCH (10:00)
[2018-06-03] MEDS ORDERED: HEPARIN NA (PORCINE) 5,000 UNITS/ML 1ML VIAL ONE (11:25)
[2018-06-03] MEDS ORDERED: LIDOCAINE HCL 1%, 10 MG/ML (20ML VIAL) ONE (11:25)
[2018-06-03] MEDS ORDERED: MIDAZOLAM HCL 2 MG/2 ML SINGLE DOSE VIAL ONE ×2 (11:33)
[2018-06-03] MEDS ORDERED: ceFAZolin SODIUM 1 GM VIAL IVPB ONE (11:40)
--- NOTE | 2018-06-03 12:29 | OP ---
Operative Note - Note: Operative Date: 06/03/18 Pre-Operative Diagnosis: clotted left Hero Graft Operation: venogram, suction thrombectomy, venoplasty left hero graft Surgeon: Lemuel Gambino Anesthesia: Fractional Estimated Blood Loss (mls): 50 Operative Report Dictated: Yes
[2018-06-03] MEDS ORDERED: oxyCODONE HCL 5 MG TABLET PO PRN (12:31)
[2018-06-03] MEDS ORDERED: PROMETHAZINE HCL 25 MG/1 ML VIAL IVPUSH PRN (12:31)
[2018-06-03] MEDS ORDERED: ONDANSETRON 4 MG/2 ML VIAL IVPUSH PRN (12:31)
--- NOTE | 2018-06-03 13:15 | OP ---
DATE OF OPERATION: 06/03/2018 PREOPERATIVE DIAGNOSIS: Clotted left HeRO graft. POSTOPERATIVE DIAGNOSIS: Clotted left HeRO graft. PROCEDURE: Venogram, suction thrombectomy venoplasty of HeRO graft. SURGEON: Lemuel Walton DO ANESTHESIA: General. ESTIMATED BLOOD LOSS: 15 mL The patient is a 67-year-old male who comes in with a clotted left AV graft. It was felt that he would need suction thrombectomy. Patient was consented for the procedure after understanding all risks, benefits and alternatives. He was then taken to the operating room. Once in the operating room, he was placed on the operating room table in supine manner. The area of the left arm was prepped and draped in sterile surgical manner. We then went ahead and injected 10 mL of lidocaine 1% in the proximal AV graft. We went ahead and used a micropuncture needle. Micropuncture wire was placed. Micropuncture sheath was placed and a traditional short 6-[place] sheath was placed. We then shot a venogram through the sheath showing that the graft was clotted. Patient had a left HeRO graft going into the . At this point we placed a 0.035 floppy guide wire into the chest to the distal graft. We then went ahead and used an EBX suction thrombectomy catheter to perform suction thrombectomy of the entire graft. The venogram now showed that the graft was patent, but there were some areas of stenosis which were seen at the attachment for the HeRO graft and we went ahead and used a 7 x 8 [place] balloon and performed venoplasty of the entire graft. Once completed, we then went to the distal AV graft. We injected 10 mL of lidocaine 1%. We then used a micropuncture needle and punctured the graft and placed a short 6-[place] sheath facing the arterial anastomosis. We then went ahead and placed a 0.035 floppy guide wire across the arterial anastomosis and an EBX suction thrombectomy catheter was used and the proximal AV graft. We performed suction thrombectomy of the proximal AV graft. We then went ahead and used our 7 x 8 balloon and performed venoplasty of the proximal AV graft. Thereafter there was a good thrill in our AV graft. Completion venogram showed that there was good flow all the way to the tip of the catheter. So at this point no more surgical intervention was needed. We used 4-0 Biosyn and a [id number] stitch was placed around each sheath and the sheaths were pulled. Area was wet and dried. Dermabond was placed. The patient tolerated the procedure with no complications. Patient transferred to PACU in stable condition. LEMUEL WALTON DO [id number]
[2018-06-03] MEDS ORDERED: SODIUM CHLORIDE 250 ML IV PRN ×2 (14:08→14:11)
--- NOTE | 2018-06-03 14:27 | CON.NEP ---
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 Cardio/Vascular: Yes: HTN, Other (H/o Endocarditis) Renal/: Yes: Renal Failure, BPH, Hemodialysis Infectious Disease: Yes: Other (recent bacteremia) Musculoskeletal: Yes: Other (Swollen right shoulder) Endocrine: Yes: Hyperparathyroidism - Past Surgical History Past Surgical History: Yes: AV Fistula/Graft, TURP - Alcohol/Substance Use Hx Alcohol Use: No History of Substance Use: reports: Marijuana - Smoking History Smoking history: Former smoker Have you smoked in the past 12 months: No Aproximately how many cigarettes per day: 20 If you are a former smoker, when did you quit?: 1990 - Social History Usual Living Arrangement: Group Home History of Recent Travel: No Home Medications - Allergies Allergies/Adverse Reactions: Allergies Allergy/AdvReac Type Severity Reaction Status Date / Time No Known Drug Allergies Allergy Verified 04/24/18 21:41 - Home Medications Home Medications: Ambulatory Orders Allopurinol [Zyloprim -] 100 mg PO DAILY 06/02/18 Aspirin [Aspirin EC] 81 mg PO DAILY 06/02/18 Cinacalcet HCl [Sensipar] 60 mg PO DAILY 06/02/18 Folic AC/Vit Bcomp,C/Zn/Vit D3 [Dialyvite 800-Ultra D Tablet] 800 tab PO DAILY 06/02/18 Calcium Acetate 667 mg PO TIDCM #0 tab 06/03/18 Nephrology Consult - Height Height: 5 ft 11 in - Weight Weight: 145 lb 14.4 oz - BMI Body Mass Index (BMI): 20.3 - Lab Results CBC,BMP: CBC, BMP 06/03/18 06:30 06/03/18 06:30 Anion Gap: Anion Gap Anion Gap 11 (8-16) 06/03/18 06:30 - Physical Examination Vital Signs: Vital Signs Temperature 97.5 F L 06/03/18 14:16 Pulse Rate 78 06/03/18 14:16 Respiratory Rate 20 06/03/18 14:16 Blood Pressure 154/97 06/03/18 14:16 O2 Sat by Pulse Oximetry (%) 98 06/03/18 13:00 Assessment/Plan esrd lue avf s/p declotting of lue avf clinically well no fluid overload on vancomycin 1gm post hd till 06/07/18 yolanda dialyze today can be d/c after dialysis
--- NOTE | 2018-06-03 15:25 | DS ---
Physical Exam: SUBJECTIVE: Patient seen and examined. asymptomatic. denie Cp, SOB, fever, chills, arm pain, numbness/tingling OBJECTIVE: Vital Signs Period Temp Pulse Resp BP Sys/[place] Pulse Ox Last 24 Hr 96.9 F-98.1 F 73-100 14-20 124-168/84-104 96-100 PHYSICAL EXAM GENERAL: The patient is awake, alert, and fully oriented, in no acute distress. HEAD: Normal with no signs of trauma. EYES: PERRL, extraocular movements intact, sclera anicteric, conjunctiva clear. ENT: Ears normal, nares patent, oropharynx clear without exudates, moist mucous membranes. NECK: Trachea midline, full range of motion, supple. LUNGS: Breath sounds equal, clear to auscultation bilaterally, no wheezes, no crackles, no accessory muscle use. HEART: Regular rate and rhythm, S1, S2 without murmur, rub or gallop. ABDOMEN: Soft, nontender, nondistended, normoactive bowel sounds, no guarding, no rebound, no hepatosplenomegaly, no masses. EXTREMITIES: 2+ pulses, warm, well-perfused, no edema. LUE graft with no palpble thrill or audible bruit NEUROLOGICAL: Cranial nerves II through XII grossly intact. Normal speech, gait not observed. PSYCH: Normal mood, normal affect. SKIN: Warm, dry, normal turgor, no rashes or lesions noted. LABS Laboratory Results - last 24 hr 06/02/18 06/02/18 06/03/18 19:40 19:40 06:30 WBC 6.4 6.0 RBC 3.74 L 3.51 L Hgb 11.4 L 10.9 L Hct 35.1 L D 32.7 L MCV 93.7 93.2 MCH 30.6 31.2 MCHC 32.6 33.4 RDW 21.2 H 20.5 H Plt Count 180 D 180 MPV 8.0 D 7.7 Absolute Neuts (auto) 4.0 Neutrophils % 62.9 Lymphocytes % 21.5 D Monocytes % 6.9 Eosinophils % 6.3 H Basophils % 2.4 H Nucleated RBC % 0 Anisocytosis 1+ PT with INR INR PTT (Actin FS) Sodium 145 Potassium 3.4 L Chloride 107 Carbon Dioxide 25 Anion Gap 13 BUN 63 H D Creatinine 7.5 H Creat Clearance w eGFR 7.29 Random Glucose 144 H D Calcium 9.0 Phosphorus Magnesium Total Bilirubin 0.4 AST 15 ALT 18 D Alkaline Phosphatase 281 H D Total Protein 6.8 Albumin 3.5 Blood Type Antibody Screen 06/03/18 06/03/18 06/03/18 06:30 06:30 06:30 WBC RBC Hgb Hct MCV MCH MCHC RDW Plt Count MPV Absolute Neuts (auto) Neutrophils % Lymphocytes % Monocytes % Eosinophils % Basophils % Nucleated RBC % Anisocytosis PT with INR 11.80 INR 1.04 PTT (Actin FS) 31.2 Sodium 143 Potassium 3.6 Chloride 105 Carbon Dioxide 27 Anion Gap 11 BUN 74 H Creatinine 8.4 H* Creat Clearance w eGFR 6.39 Random Glucose 88 D Calcium 9.0 Phosphorus 5.6 H Magnesium 2.8 H D Total Bilirubin AST ALT Alkaline Phosphatase Total Protein Albumin Blood Type O POSITIVE Antibody Screen Negative HOSPITAL COURSE: Date of Admission:06/02/18 Date of Discharge: 06/03/18 Admitting diagnosis: clotted AV graft Procedure: Venogram 06/02 Pre hospital course 67 yo M h/o HTN, BPH, and ESRD on HD (MWF) presented to the ED with non- functional fistula. Patient stated that he was at [facility] earlier this PM where the nurse there found his L arm fistula not working, likely clotted. He otherwise denies chest pain, sob, dizziness, headache, abd pain, bowel sx. Subsequent hospital course Admitted to medicine. doppler confirmed focal occlusion of the graft. venogram done to remove graft. HD done and tolerated. D/C home Minutes to complete discharge: 40 Discharge Summary Reason For Visit: CLOTTED DIALYSIS ACCESS Current Active Problems Clotted dialysis access (Acute) - Instructions Diet, Activity, Other Instructions: You were admitted to the hospital because your AV fistula was clotted and not working You underwent a venogram and the clot was removed. You received Dialysis prior to discharge Continue your home medications as you were taking them Report to dialysis on Tuesday for your next regular session Follow up with your primary care doctor in 1 week Disposition: HOME - Home Medications Comprehensive Discharge Medication List: Ambulatory Orders Allopurinol [Zyloprim -] 100 mg PO DAILY 06/02/18 Aspirin [Aspirin EC] 81 mg PO DAILY 06/02/18 Cinacalcet HCl [Sensipar] 60 mg PO DAILY 06/02/18 Folic AC/Vit Bcomp,C/Zn/Vit D3 [Dialyvite 800-Ultra D Tablet] 800 tab PO DAILY 06/02/18 Calcium Acetate 667 mg PO TIDCM #0 tab 06/03/18 This patient is new to me today: Yes Date on this admission: 06/03/18 Emergency Visit: Yes ED Registration Date: 06/02/18 Care time: The patient presented to the Emergency Department on the above date and was hospitalized for further evaluation of their emergent condition. Critical Care patient: No - Discharge Referral Referred to [facility] No
[2018-06-03] MEDS ORDERED: VANCOMYCIN 1 GM PREMIX - 1 GM/200 ML BAG IVPB ONE (17:00)
[2018-06-04] MEDS: CALCIUM ACETATE 667 MG CAPSULE (FP) PO SCH (07:43)
[2018-06-04] MEDS ORDERED: PT OWN MED DRAWER 7, Y5N ONE (09:06)
[2018-06-04 09:26] VITALS: BP 125/88; PULSE 81; TEMP 97.8
--- NOTE | 2018-06-04 09:52 | PN ---
Progress Note (short form) - Note Progress Note: POD #1 - s/p venogram, venoplasty, suction thrombectomy of left AV graft under MAC. VSS. No complaints. No apparent anesthetic complications noted. Pt. to be discharged today.
[2018-06-04] MEDS ORDERED: MULTIVITAMINS (DAILY MVI) TABLET (FP) PO SCH (10:00)
[2018-06-04] MEDS ORDERED: CINACALCET HCL 30 MG TAB (FP) PO SCH (10:00)
[2018-06-04] MEDS ORDERED: ALLOPURINOL 100 MG TABLET (FP) PO SCH (10:00)
[2018-06-04] MEDS ORDERED: CHOLECALCIFEROL (VITAMIN D3) 400 UNIT TABLET (FP) PO SCH (10:00)
--- NOTE | 2018-06-05 10:42 | EKG ---
Test Reason : Blood Pressure : / mmHG Vent. Rate : 091 BPM Atrial Rate : 091 BPM P-R Int : 220 ms QRS Dur : 092 ms QT Int : 366 ms P-R-T Axes : 058 062 244 degrees QTc Int : 450 ms SINUS RHYTHM WITH 1ST DEGREE A-V BLOCK ABNORMAL ECG WHEN COMPARED WITH ECG OF 25-APR-2018 09:38, Confirmed by GRANT SANTIZO MD ([id number]) on 06/05/2018 10:41:44 AM Referred By: Confirmed By:GRANT SANTIZO MD
[2018-06-05 14:12] LABS: HBSAG SCREEN Negative (Negative); HEP B CORE AB, TOT Negative (Negative)
== END 2018-06-04 10:05 | disposition home or self-care (01) | DRG 252 ==
LOC: JER 17:34 → JERBED 21:54 → J7W 06-03 06:10
PROVIDERS: ADMIT Internal Medicine; ATTEND Internal Medicine
PROC: 057Y3ZZ Dilation of Upper Vein, Percutaneous Approach (ICD-10-PCS; 2018-06-03)
PROC: B51NYZZ Fluoroscopy of Left Upper Extremity Veins using Other Contrast (ICD-10-PCS; 2018-06-03)
PROC: 5A1D70Z Performance of Urinary Filtration, Intermittent, Less than 6 Hours Per Day (ICD-10-PCS; 2018-06-03)
PROC: 05CY3ZZ Extirpation of Matter from Upper Vein, Percutaneous Approach (ICD-10-PCS; principal; 2018-06-03 10:44)
DX: T82.868A Thrombosis due to vascular prosthetic devices, implants and grafts, initial encounter (principal); N18.6 End stage renal disease; I12.0 Hypertensive chronic kidney disease with stage 5 chronic kidney disease or end stage renal disease; I48.91 Unspecified atrial fibrillation; F20.9 Schizophrenia, unspecified; Z95.0 Presence of cardiac pacemaker; M25.511 Pain in right shoulder; M10.9 Gout, unspecified; N40.0 Benign prostatic hyperplasia without lower urinary tract symptoms; Z87.891 Personal history of nicotine dependence; Z99.2 Dependence on renal dialysis; E21.3 Hyperparathyroidism, unspecified; Y83.8 Other surgical procedures as the cause of abnormal reaction of the patient, or of later complication, without mention of misadventure at the time of the procedure
CPT/HCPCS: 36415; 80048; 80053; 83735; 84100; 85025; 85027; 85610; 85730; 86704; 86706; 86708; 86803; 86850; 86900; 86901; 87340; 93005; 93010; 93971; 94760; 99284-25; G0480; J1644

== ENCOUNTER 2018-08-31 11:40 | Day surgery (SDC) | payer OTHER ==
[2018-08-31 11:56] VITALS: BMI 22.1
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
--- NOTE | 2018-08-31 13:45 | PDOC ---
Attending Attestation - Resident Resident Name: Yuliet Silva - ED Attending Attestation I have performed the following: I have examined & evaluated the patient, The case was reviewed & discussed with the resident, I agree w/resident's findings & plan, Exceptions are as noted - HPI HPI: 08/31/18 13:44 67-year-old male patient with history of end-stage renal disease on dialysis Tuesday, Tuesday, Tuesday with left arm graft, enlarged prostate, hypertension, schizophrenia, hypertension sent in for clogged left upper extremities graft. Patient last dialysis 3 days ago. Had attempted to go to dialysis yesterday but that graft was clotted. Patient typically gets his graft cleared by vascular surgeon, Dr. Leon.. Sent in to repair graft. - Physicial Exam PE: 08/31/18 13:51 GENERAL: Awake, alert, and fully oriented, in no acute distress HEAD: No signs of trauma EYES: EOMI, sclera anicteric, conjunctiva clear ENT: Auricles normal inspection, hearing grossly normal, nares patent, NECK: Normal ROM, supple, ABDOMEN: Soft, nontender, No guarding, no rebound. No masses EXTREMITIES: Normal range of motion, no edema. (Pt is upset about showing his graft twice since he is wearing multiple shirts, since he shown it to the resident. Will attempt to look again later) NEUROLOGICAL: Cranial nerves II through XII grossly intact. Normal speech, SKIN: Warm, Dry, normal turgor, no rashes or lesions noted. - Medical Decision Making 08/31/18 13:45 Vital Signs Temp Pulse Resp BP Pulse Ox 97.5 F L 107 H 18 112/77 100 08/31/18 11:52 08/31/18 11:52 08/31/18 11:52 08/31/18 11:52 08/31/18 11:52 Pt is very insistent on not getting labs or EKG done. He reports that this happens all the time and that this gets corrected in Dr. Thurston's office. Pt asks that we consult Dr. Leon prior to drawing labs. Consult placed in regards to disposition. Will need graft repaired. 08/31/18 16:[address] Leon. Will take patient to OR tonight. Pre-op labs. NPO. Admit to Dr. Shea.
[2018-08-31 17:03] LABS: HEMATOCRIT 34.3 % (35.4-49); HEMOGLOBIN 11.2 GM/dL (11.7-16.9); LYMPH % 27.6 % (8-40); MCH 30.2 pg (25.7-33.7); MCHC 32.7 g/dl (32.0-35.9); MEAN CELL VOLUME 92.4 fl (80-96); MONO % 12.1 % (3.8-10.2); NEUT % 50.3 % (42.8-82.8); PLATELET COUNT 205 K/MM3 (134-434); RBC 3.71 M/mm3 (4.00-5.60); RDW 17.3 % (11.9-15.9); WHITE BLOOD COUNT 5.6 K/mm3 (4.0-10.0)
[2018-08-31 17:17] LABS: INR 1.08 (0.83-1.09); PROTHROMBIN TIME (PATIENT) 12.7 SEC (9.7-13.0)
[2018-08-31 17:37] LABS: ALBUMIN 3.4 g/dl (3.4-5.0); ALK PHOS 245 U/L (45-117); ANION GAP 16 MMOL/L (8-16); BILIRUBIN,TOTAL 0.6 mg/dL (0.2-1); BLOOD UREA NITROGEN 71 mg/dL (7-18); CALCIUM 9.2 mg/dL (8.5-10.1); CHLORIDE 105 mmol/L (98-107); CO2 23 mmol/L (21-32); GLUCOSE,RANDOM 69 mg/dL (74-106); MAGNESIUM 2.5 mg/dL (1.8-2.4); POTASSIUM 5.1 mmol/L (3.5-5.1); SGOT/AST 12 U/L (15-37); SGPT/ALT 12 U/L (13-61); SODIUM 145 mmol/L (136-145); TOT PROT 6.9 g/dl (6.4-8.2)
--- NOTE | 2018-08-31 18:41 | HP ---
Admitting History and Physical - Admission History of Present Illness: 67 year old man with ESRD on HD. His left arm AV graft is thrombosed. Last dialysis Tuesday. 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 Cardiovascular: Yes: HTN, Other (H/o Endocarditis) Renal/: Yes: Renal Failure, BPH, Hemodialysis Heme/Onc: Yes: Other Infectious Disease: Yes: Other (recent bacteremia) Musculoskeletal: Yes: Other (Swollen right shoulder) Endocrine: Yes: Hyperparathyroidism - Past Surgical History Past Surgical History: Yes: AV Fistula/Graft, TURP - Smoking History Smoking history: Former smoker Have you smoked in the past 12 months: No Aproximately how many cigarettes per day: 20 If you are a former smoker, when did you quit?: 1990 - Alcohol/Substance Use Hx Alcohol Use: No History of Substance Use: reports: Marijuana - Social History History of Recent Travel: No Home Medications - Allergies Allergies/Adverse Reactions: Allergies Allergy/AdvReac Type Severity Reaction Status Date / Time No Known Drug Allergies Allergy Verified 08/31/18 11:56 - Home Medications Home Medications: Ambulatory Orders Allopurinol [Zyloprim -] 100 mg PO DAILY 06/02/18 Aspirin [Aspirin EC] 81 mg PO DAILY 06/02/18 Cinacalcet HCl [Sensipar] 60 mg PO DAILY 06/02/18 Folic AC/Vit Bcomp,C/Zn/Vit D3 [Dialyvite 800-Ultra D Tablet] 800 tab PO DAILY 06/02/18 Calcium Acetate 667 mg PO TIDCM #0 tab 06/03/18 Methylprednisolone [Medrol Dose Sunny] 4 mg PO ASDIR #21 tablet 06/09/18 Physical Examination Vital Signs: Vital Signs Temperature 97.6 F 08/31/18 18:22 Pulse Rate 88 08/31/18 18:22 Respiratory Rate 18 08/31/18 18:22 Blood Pressure 119/63 08/31/18 18:22 O2 Sat by Pulse Oximetry (%) 98 08/31/18 18:22 Constitutional: Yes: No Distress Eyes: Yes: EOM Intact HENT: Yes: WNL Neck: Yes: Supple Cardiovascular: Yes: Regular Rate and Rhythm Respiratory: Yes: WNL Gastrointestinal: Yes: Soft Extremities: Yes: Other (Left upper arm multiiple thrombosed aneurysms. No bruit in graft) Edema: No Labs: CBC, BMP 08/31/18 14:50 10/25/18 14:50 Problem List - Problems (1) Clotted dialysis access Assessment/Plan: Thrombosed graft. Plan thrombectomy Code(s): T82.49XA - OTH COMPLICATION OF VASCULAR DIALYSIS CATHETER, INIT ENCNTR Qualifiers: Encounter type: initial encounter Qualified Code(s): T82.49XA - Other complication of vascular dialysis catheter, initial encounter (2) ESRD (end stage renal disease) on dialysis Code(s): N18.6 - END STAGE RENAL DISEASE; Z99.2 - DEPENDENCE ON RENAL DIALYSIS
[2018-08-31] MEDS ORDERED: PROPOFOL 20 ML ONE (19:28)
[2018-08-31] MEDS ORDERED: MIDAZOLAM HCL 2 MG/2 ML SINGLE DOSE VIAL ONE (19:28)
[2018-08-31] MEDS ORDERED: ceFAZolin SODIUM 1 GM VIAL ONE (19:36)
[2018-08-31] MEDS ORDERED: LIDOCAINE HCL 1%, 10 MG/ML (50 mL VIAL) IJ ONE (19:40)
[2018-08-31] MEDS ORDERED: SODIUM CHLORIDE 1,000 ML IV SCH (19:45)
[2018-08-31] MEDS ORDERED: ONDANSETRON 4 MG/2 ML VIAL IVPUSH PRN (19:45)
[2018-08-31] MEDS ORDERED: HEPARIN NA (PORCINE) 5,000 UNITS/ML 1ML VIAL ONE ×2 (19:47→19:48)
[2018-08-31] MEDS ORDERED: oxyCODONE HCL 5 MG TABLET PO PRN (20:27)
--- NOTE | 2018-08-31 20:28 | OP ---
Operative Note - Note: Operative Date: 08/31/18 Pre-Operative Diagnosis: Thrombosed AV graft Operation: Percutaneous suction thrombectomy left arm AV graft Findings: Thrombosed HeRO graft left arm, no visible stenosis Post-Operative Diagnosis: Same as Pre-op Surgeon: Corona Knight Anesthesiologist/MAINTENANCE ANALYST: Shelby Le Anesthesia: Fractional
[2018-08-31] MEDS ORDERED: methylPREDNISolone 4 MG TABLET PO SCH (20:30)
[2018-08-31] MEDS ORDERED: methylPREDNISolone 4 MG TABLET PO ONE (20:45)
[2018-08-31] MEDS ORDERED: CLOPIDOGREL BISULFATE 75 MG TABLET (FP) ONE (20:54)
[2018-08-31] MEDS: CLOPIDOGREL BISULFATE 75 MG TABLET (FP) PO SCH (20:58)
[2018-09-01] MEDS ORDERED: CALCIUM ACETATE 667 MG CAPSULE (FP) PO SCH (08:00)
--- NOTE | 2018-09-01 08:26 | PN ---
Progress Note, Physician Chief Complaint: day 1 s/p suction thrombectomy of AVG - Current Medication List Current Medications: Active Medications Allopurinol (Zyloprim -) 100 mg PO DAILY [facility] Aspirin (Ecotrin -) 81 mg PO DAILY [facility] Calcium Acetate (Phoslo -) 667 mg PO TIDCM [facility] Cinacalcet (Sensipar -) 60 mg PO DAILY [facility] Clopidogrel Bisulfate (Plavix -) 75 mg PO DAILY [facility] Last Admin: 08/31/18 20:58 Dose: 75 mg Sodium Chloride (Normal Saline -) 1,000 mls @ 42 mls/hr IV ASDIR [facility] Last Admin: 08/31/18 22:57 Dose: Not Given Methylprednisolone (Medrol -) 20 mg PO ONCE ONE Stop: 09/01/18 20:01 Methylprednisolone (Medrol -) 16 mg PO ONCE ONE Stop: 09/02/18 20:01 Methylprednisolone (Medrol -) 12 mg PO ONCE ONE Stop: 09/03/18 20:01 Methylprednisolone (Medrol -) 8 mg PO ONCE ONE Stop: 09/04/18 20:01 Methylprednisolone (Medrol -) 4 mg PO ONCE ONE Stop: 09/05/18 20:01 Multivit/Ca Carb/B Cmplx/FA/Prenat (Nephro-Anamaria -) 1 tablet PO DAILY [facility] Ondansetron HCl (Zofran Injection) 4 mg IVPUSH Q6H PRN PRN Reason: NAUSEA AND/OR VOMITING Oxycodone HCl (Roxicodone -) 5 mg PO Q4H PRN PRN Reason: PAIN LEVEL 1-5 - Objective Vital Signs: Vital Signs Temperature 98.0 F 08/31/18 21:00 Pulse Rate 96 H 08/31/18 21:00 Respiratory Rate 22 H 08/31/18 21:00 Blood Pressure 158/97 08/31/18 21:00 O2 Sat by Pulse Oximetry (%) 100 08/31/18 21:00 Labs: CBC, BMP 08/31/18 14:50 08/31/18 14:50 INR, PTT INR 1.08 (0.83-1.09) 08/31/18 14:50 Assessment/Plan Doing well today- OOB to chair and eating. No anesthetic issues/complications.
--- NOTE | 2018-09-01 09:39 | EKG ---
Test Reason : Blood Pressure : / mmHG Vent. Rate : 098 BPM Atrial Rate : 097 BPM P-R Int : 000 ms QRS Dur : 094 ms QT Int : 362 ms P-R-T Axes : 000 053 235 degrees QTc Int : 462 ms NORMAL SINUS RHYTHM WITH 1ST DEGREE A-V BLOCK PROLONGED QT ABNORMAL ECG Confirmed by RENATO SAMSON MD ([id number]) on 09/01/2018 9:38:53 AM Referred By: Confirmed By:RENATO SAMSON MD
[2018-09-01] MEDS ORDERED: PT OWN MED DRAWER 7, Y5N ONE (09:41)
[2018-09-01] MEDS: CLOPIDOGREL BISULFATE 75 MG TABLET (FP) PO SCH (09:43)
[2018-09-01] MEDS ORDERED: VITAMIN B COMP W-C 1 EA TABLET PO SCH (10:00)
[2018-09-01] MEDS ORDERED: ASPIRIN COATED 81 MG TABLET.EC PO SCH (10:00)
[2018-09-01] MEDS ORDERED: CINACALCET HCL 30 MG TAB (FP) PO SCH (10:00)
[2018-09-01] MEDS ORDERED: ALLOPURINOL 100 MG TABLET (FP) PO SCH (10:00)
--- NOTE | 2018-09-01 11:05 | CONSULT ---
Consult Consult Specialty:: Nephrology ( [facility]/ [facility]) Referred by:: Dr. Knight Reason for Consultation:: ESRD - History of Present Illness Chief Complaint: 67-year-old male patient with history of End-stage renal disease on dialysis Tuesday, Tuesday, Tuesday at [facility] admitted woth clotted . Also has h/o enlarged prostate, hypertension, schizophrenia, hypertension. History of Present Illness: The patient underwent declotting. 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 Cardio/Vascular: Yes: HTN, Other (H/o Endocarditis) Renal/: Yes: Renal Failure, BPH, Hemodialysis Infectious Disease: Yes: Other (recent bacteremia) Musculoskeletal: Yes: Other (Swollen right shoulder) Endocrine: Yes: Hyperparathyroidism - Past Surgical History Past Surgical History: Yes: AV Fistula/Graft, TURP - Alcohol/Substance Use Hx Alcohol Use: No History of Substance Use: reports: Marijuana - Smoking History Smoking history: Former smoker Have you smoked in the past 12 months: No Aproximately how many cigarettes per day: 20 If you are a former smoker, when did you quit?: 1990 - Social History Usual Living Arrangement: [facility] History of Recent Travel: No Home Medications - Allergies Allergies/Adverse Reactions: Allergies Allergy/AdvReac Type Severity Reaction Status Date / Time No Known Drug Allergies Allergy Verified 08/31/18 11:56 - Home Medications Home Medications: Ambulatory Orders Allopurinol [Zyloprim -] 100 mg PO DAILY 06/02/18 Aspirin [Aspirin EC] 81 mg PO DAILY 06/02/18 Cinacalcet HCl [Sensipar] 60 mg PO DAILY 06/02/18 Folic AC/Vit Bcomp,C/Zn/Vit D3 [Dialyvite 800-Ultra D Tablet] 800 tab PO DAILY 06/02/18 Calcium Acetate 667 mg PO TIDCM #0 tab 06/03/18 Methylprednisolone [Medrol Dose Sunny] 4 mg PO ASDIR #21 tablet 06/09/18 Clopidogrel Bisulfate [Plavix -] 75 mg PO DAILY #30 tablet 09/01/18 Review of Systems - Review of Systems Constitutional: reports: No Symptoms Eyes: reports: No Symptoms Neck: reports: No Symptoms Respiratory: reports: No Symptoms Gastrointestinal: reports: No Symptoms Neurological: reports: No Symptoms Psychiatric: reports: Paranoia Physical Exam Vital Signs: Vital Signs Temperature 98.0 F 08/31/18 21:00 Pulse Rate 96 H 08/31/18 21:00 Respiratory Rate 22 H 08/31/18 21:00 Blood Pressure 158/97 08/31/18 21:00 O2 Sat by Pulse Oximetry (%) 100 08/31/18 21:00 Constitutional: Yes: Well Nourished, No Distress Eyes: Yes: Conjunctiva Clear HENT: Yes: Normocephalic Neck: Yes: Trachea Midline Cardiovascular: Yes: Regular Rate and Rhythm, S1, S2 Respiratory: Yes: CTA Bilaterally Gastrointestinal: Yes: Normal Bowel Sounds, Soft Renal/: No: CVA Tenderness - Left, CVA Tenderness - Right Extremities: Yes: Other (AV access with good bruit) Edema: No Neurological: Yes: Alert, Oriented Labs: CBC, BMP 08/31/18 14:50 08/31/18 14:50 Problem List - Problems (1) Clotted dialysis access Code(s): T82.49XA - OTH COMPLICATION OF VASCULAR DIALYSIS CATHETER, INIT ENCNTR Qualifiers: Encounter type: initial encounter Qualified Code(s): T82.49XA - Other complication of vascular dialysis catheter, initial encounter (2) Anemia of renal disease Code(s): D63.1 - ANEMIA IN CHRONIC KIDNEY DISEASE (3) ESRD (end stage renal disease) on dialysis Code(s): N18.6 - END STAGE RENAL DISEASE; Z99.2 - DEPENDENCE ON RENAL DIALYSIS Assessment/Plan 67 y/o AA male admitted with clotted AV access. Access declotted and is functioning well. The patient declined dialysis in the hospital. Wants to go home, and get dialysis at his outpatient facility. Thank you. Malorie Wells MD
[2018-09-01 11:36] VITALS: BP 111/79; PULSE 86; TEMP 98.2
[2018-09-01] MEDS ORDERED: methylPREDNISolone 4 MG TABLET PO ONE (20:00)
[2018-09-02] MEDS ORDERED: methylPREDNISolone 4 MG TABLET PO ONE (20:00)
[2018-09-03] MEDS ORDERED: methylPREDNISolone 4 MG TABLET PO ONE (20:00)
[2018-09-04] MEDS ORDERED: methylPREDNISolone 4 MG TABLET PO ONE (20:00)
[2018-09-05] MEDS ORDERED: methylPREDNISolone 4 MG TABLET PO ONE (20:00)
--- NOTE | 2018-09-06 19:02 | OP ---
DATE OF OPERATION: 08/31/2018 SURGEON: Corona Knight M.D. PROCEDURE: Percutaneous resection thrombectomy left arm arteriovenous graft. PREOPERATIVE DIAGNOSIS: Thrombosed arteriovenous graft. POSTOPERATIVE DIAGNOSIS: Thrombosed arteriovenous graft. ANESTHESIA: Fractional. ANESTHESIOLOGIST: Shelby Le M.D. OPERATIVE FINDINGS: The left upper arm AV graft was thrombosed. Following thrombectomy, there was no evidence of graft or anastomotic stenoses. DESCRIPTION OF PROCEDURE: Following routine patient identified, with side and site verification, intravenous sedation was established. The left arm was prepped with ChloraPrep. Timeout was performed. Using real time duplex imaging, the AV graft in the left upper arm was identified and found to be thrombosed. 1% lidocaine was infiltrated with the distal end of the graft and was cannulated with a micropuncture needle under ultrasound guidance. A wire was passed proximally to the graft, and the needle was exchanged for a 5 Hungarian catheter. The catheter was then exchanged over a wire for a 7 Hungarian sheath. An angled wire and catheter were advanced proximally through the graft and into the Hero catheter. The wire was advanced to the right atrium. An Angiojet with AVX catheter was then used to perform suction thrombectomy of the grafting catheter. The patient was also given intravenous heparin. Following thrombectomy, a number 4 Jessica catheter was advanced into the catheter and pulled back but the balloon expanded to withdraw any additional thrombus from the graft. This was flushed with the sheath, which was then reinserted. Venogram was then performed which dilute contrast which showed a patent graft and catheter with no evidence of narrowing. The sheath was removed and bleeding controlled with a [id number] suture of 3-0 nylon. Catheter was then placed percutaneously into the graft in the upper part of the arm, advanced directed towards the elbow. A 7 Hungarian sheath was replaced. Wire was advanced distally with a catheter into the brachial artery, and then arteriogram with pain showing a patent vessel with no distal emboli, occlusion of the distal portion of the graft. The was then used on this section, and the Jessica catheter pulled back to restore arterial inflow. Repeat imaging showed a clean patent graft with good flow. The sheath was removed, and a nylon suture used to control bleeding. Sterile dressings were applied, and the patient was taken to the recovery room in a stable condition. Maria Elena [id number] MTDD
== END 2018-09-01 12:34 | disposition home or self-care (01) ==
LOC: JER 11:40 → JASUSAT 16:15 → J7W 21:15 → JASUSAT 09-01 12:34
PROVIDERS: ATTEND Surgery
PROC: 037Y3ZZ Dilation of Upper Artery, Percutaneous Approach (ICD-10-PCS; 2018-08-31)
PROC: 03CY3ZZ Extirpation of Matter from Upper Artery, Percutaneous Approach (ICD-10-PCS; principal; 2018-08-31 19:11)
DX: T82.868A Thrombosis due to vascular prosthetic devices, implants and grafts, initial encounter (principal); I12.0 Hypertensive chronic kidney disease with stage 5 chronic kidney disease or end stage renal disease; N18.6 End stage renal disease; Z99.2 Dependence on renal dialysis; Z87.891 Personal history of nicotine dependence
CPT/HCPCS: 36415; 71045-TC-FY; 76000-TC-FY; 80053; 83735; 85025; 85610; 86850; 86900; 86901; 93005; 93010; 93971; 94760; 99282-25; J1644